=== PATIENT | female | born 1935 | race Caucasian/White ===

== ENCOUNTER 2019-04-12 20:16 | Emergency (ER) | payer MEDICARE, MEDICAID ==
[~2019-04-12] VITALS: Ht 152.4 cm; Wt 63.5 kg
[~2019-04-12 20:16] MED LIST: AMLO2.5T2 PO; ASPI-1152 PO; CLOP75TA15 PO; ESOM20CA PO; FERR1TAB44 PO; ISOS30TA PO; METO50TA7 PO; VENL25TA4 PO
[2019-04-12 20:57] VITALS: BP 130/68
--- NOTE | 2019-04-12 21:29 | NUR ---
RADIOLOGY AT BEDSIDE FOR XRAY
[2019-04-12] MEDS ORDERED: KETOROLAC TROMETHAMINE 15 MG/ML VIAL ONE (21:46)
[2019-04-12] MEDS ORDERED: ACETAMINOPHEN 325 MG TABLET ONE (21:46)
[2019-04-12] MEDS: ACETAMINOPHEN 325 MG TABLET PO ONE (21:52)
[2019-04-12] MEDS: KETOROLAC TROMETHAMINE INJ 30 MG/ML VIAL IM ONE (21:52)
== END 2019-04-12 23:03 | disposition home or self-care (01) ==
LOC: ER 20:20
DX: L03.115 Cellulitis of right lower limb (principal); R60.0 Localized edema; M79.671 Pain in right foot; I10 Essential (primary) hypertension; E78.5 Hyperlipidemia, unspecified; I25.2 Old myocardial infarction; G30.9 Alzheimer's disease, unspecified; F32.9 Major depressive disorder, single episode, unspecified; Z95.5 Presence of coronary angioplasty implant and graft; Z90.710 Acquired absence of both cervix and uterus; Z79.82 Long term (current) use of aspirin
CPT/HCPCS: 73630; 93971; 96372; 99284; J1885

== ENCOUNTER 2019-05-23 19:22 | Emergency (ER) | payer MEDICARE, MEDICAID ==
[~2019-05-23] VITALS: Ht 154.9 cm; Wt 61.2 kg
[2019-05-23 19:34] VITALS: BP 133/68
--- NOTE | 2019-05-23 19:34 | NUR ---
PT BIBFAMILT C/O "EARLIER TODAY, SWEATING. HAND ON CHEST" -SOB. -DIZZY. -N/V. PT BASELINE AOX1-2. VERBALLY RESPONSIVE. PT DENIES PAIN AT THE MOMENT. PT ON MONITOR IN BED 3 WITH FAMILY AT BEDSIDE. WILL CONTINUE TO MONITOR.
--- NOTE | 2019-05-23 19:35 | NUR ---
TECH AT BEDSIDE FOR EKG
--- NOTE | 2019-05-23 19:45 | NUR ---
BLOOD DRAWN AND GIVEN TO LAB
[2019-05-23 19:47] LABS: BASOPHILS # (AUTO) 0.1 /CMM (0.0-0.2); BASOPHILS % (AUTO) 1.1 % (0.0-2.0); EOSINOPHILS % (AUTO) 2.4 % (0.0-6.0); HEMATOCRIT 37 % (33-45); HEMOGLOBIN 12.3 g/dL (11.5-14.8); LYMPHOCYTES # (AUTO) 1.8 /CMM (0.8-4.8); LYMPHOCYTES % (AUTO) 20.2 % (20.0-44.0); MEAN CORPUSCULAR HGB CONC 33 g/dl (31.0-36.0); MEAN CORPUSCULAR VOLUME 85 fL (82-100); MONOCYTES # (AUTO) 0.7 /CMM (0.1-1.30); MONOCYTES % (AUTO) 8.5 % (2.0-12.0); NEUTROPHILS # (AUTO) 5.9 /CMM (1.8-8.9); NEUTROPHILS % (AUTO) 67.8 % (43.0-81.0); PLATELET COUNT (AUTO) 390 /CMM (150-450); RED BLOOD CELL COUNT(AUTO) 4.31 MIL/uL (4.0-5.2); WHITE BLOOD COUNT (AUTO) 8.8 K/uL (4.3-11.0)
[2019-05-23 20:02] LABS: CALCIUM, SERUM 7.9 mg/dL (8.5-10.1); CARBON DIOXIDE 27 mmol/L (21-32); CHLORIDE 106 mmol/L (98-107); CREATININE 0.8 mg/dL (0.6-1.3); GLUCOSE 119 mg/dL (74-106); POTASSIUM 3.9 mmol/L (3.5-5.1); SODIUM SERUM 142 mmol/L (136-145); UREA NITROGEN, BLOOD 19 mg/dL (7-18)
[2019-05-23 20:14] LABS: ALANINE AMINOTRANSFERASE 21 U/L (12-78); ALBUMIN 3.2 g/dL (3.4-5.0); ALKALINE PHOSPHATASE 58 U/L (46-116); ASPARTATE AMINOTRANSFERASE 14 U/L (15-37); B-TYPE NATRIURETIC PEPTIDE 335 PG/ML (0-125); BILIRUBIN,TOTAL 0.3 mg/dL (0.2-1.0); TOTAL PROTEIN, SERUM 6.7 g/dL (6.4-8.2)
--- NOTE | 2019-05-23 21:02 | NUR ---
Patient does not wish to proceed with medical care recommended by Dr. JASON. Patient given information related to possible complications, up to and including , which could occur as a result of leaving the hospital at this time. Patient verbalizes understanding of risks involved due to leaving against medical advice. Patient has signed AMA form.
== END 2019-05-23 21:12 | disposition left against medical advice (07) ==
LOC: ER 19:30
DX: R07.89 Other chest pain (principal); I10 Essential (primary) hypertension; E78.5 Hyperlipidemia, unspecified; I25.10 Atherosclerotic heart disease of native coronary artery without angina pectoris; I25.2 Old myocardial infarction; F32.9 Major depressive disorder, single episode, unspecified; G30.9 Alzheimer's disease, unspecified; Z95.818 Presence of other cardiac implants and grafts; Z90.710 Acquired absence of both cervix and uterus; Z79.899 Other long term (current) drug therapy; Z79.82 Long term (current) use of aspirin
CPT/HCPCS: 36415; 71045-TC; 80048-TC; 80076-TC; 83880; 84484-TC; 85025-TC

== ENCOUNTER 2019-08-01 15:02 | Inpatient (IN) | payer MEDICARE, MEDICAID ==
[~2019-08-01] VITALS: Ht 157.5 cm; Wt 65.3 kg
--- NOTE | 2019-08-01 15:17 | NUR ---
"BIBA [place] Professional from [place] "Mechanical fall- witnessed by staff/ Pain on left side/elbow was given tylenol and Kountze" PT AAOX1, PT ON MONITOR, -SOB, NAD NOTED, VSS ,PENDING MD SOTO
[2019-08-01] MEDS ORDERED: MAGN400O6 PO ×2 (15:58→16:00)
[2019-08-01] MEDS ORDERED: DULO60CA45 PO (15:58)
[2019-08-01] MEDS ORDERED: METO25TA20 PO (15:58)
[2019-08-01] MEDS ORDERED: ACET-868 PO (15:58)
[2019-08-01] MEDS ORDERED: RISP0.253 PO ×2 (15:58)
[2019-08-01] MEDS ORDERED: BISA10SU11 RC (15:58)
[2019-08-01] MEDS ORDERED: GABA-532 PO (15:58)
[2019-08-01] MEDS ORDERED: ATOR40TA PO (15:58)
--- NOTE | 2019-08-01 16:07 | NUR ---
PAGED ORTHO PHARMACEUTICAL SCIENTIST ARTHUR GO
[2019-08-01 16:15] LABS: BASOPHILS # (AUTO) 0.2 /CMM (0.0-0.2); BASOPHILS % (AUTO) 1.2 % (0.0-2.0); EOSINOPHILS % (AUTO) 0.8 % (0.0-6.0); HEMATOCRIT 32 % (33-45); HEMOGLOBIN 10.3 g/dL (11.5-14.8); LYMPHOCYTES # (AUTO) 1.1 /CMM (0.8-4.8); MEAN CORPUSCULAR HGB CONC 32 g/dl (31.0-36.0); MEAN CORPUSCULAR VOLUME 84 fL (82-100); MONOCYTES # (AUTO) 0.9 /CMM (0.1-1.30); MONOCYTES % (AUTO) 6.7 % (2.0-12.0); NEUTROPHILS # (AUTO) 11.6 /CMM (1.8-8.9); NEUTROPHILS % (AUTO) 83.3 % (43.0-81.0); PLATELET COUNT (AUTO) 514 /CMM (150-450); RED BLOOD CELL COUNT(AUTO) 3.79 MIL/uL (4.0-5.2)
--- NOTE | 2019-08-01 16:20 | NUR ---
Shawn Abreu called back for ortho consult, talking to Dr Long.
[2019-08-01 16:26] LABS: CALCIUM, SERUM 8.6 mg/dL (8.5-10.1); CREATININE 0.8 mg/dL (0.6-1.3)
--- NOTE | 2019-08-01 16:27 | NUR ---
Paged [facility] -- software applications developer is Dr Clayton.
[2019-08-01 16:56] LABS: APPEARANCE,URINE Slightly Cloudy (CLEAR); BILIRUBIN,URINE Negative (NEGATIVE); BLOOD, URINE Negative Ery/uL (NEGATIVE); COLOR,URINE Yellow (YELLOW); KETONES,URINE Negative (NEGATIVE); LEUKOCYTE ESTERASE ,URINE Small (NEGATIVE); NITRITE, URINE Negative (NEGATIVE); PROTEIN,URINE Negative (NEGATIVE); UGLUCOSE Negative (NEGATIVE); UROBILINOGEN,URINE 0.2 EU/dL (0.2)
[2019-08-01] MEDS ORDERED: MORPHINE SULFATE INJ 2 MG/ML DISP.SYRIN IV ONE (17:00)
[2019-08-01] MEDS ORDERED: ONDANSETRON HCL/PF - ER 4 MG/2 ML VIAL IV ONE (17:00)
[2019-08-01 17:07] LABS: BACTERIA,URINE 3+ /HPF (None Seen); RBC,URINE NONE SEEN /HPF (0-2); SQUAMOUS EPITHELIAL CELL,UR Rare /HPF (None Seen)
[2019-08-01] MEDS ORDERED: ONDANSETRON HCL/PF 4 MG/2 ML VIAL ONE (17:08)
[2019-08-01] MEDS ORDERED: MORPHINE SULFATE INJ 2 MG/ML DISP.SYRIN ONE (17:09)
--- NOTE | 2019-08-01 17:46 | NUR ---
[id number] [facility]
--- NOTE | 2019-08-01 18:22 | NUR ---
REPORT GIVEN TO NATHANIEL FLYNN FOR YARA PT WILL BE TRANSPORTED TO 3RD FLOOR VIA ACLS PROTOCOL
[2019-08-01 18:30] VITALS: BP 131/76
[2019-08-01 18:31] VITALS: BP 131/76
--- NOTE | 2019-08-01 18:35 | NUR ---
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 NO SIGNS OF ACUTE DISTRESS. NO COMPLAIN OF PAIN OR DISCOMFORT. A/O X 1, KHMER SPEAKING ONLY. ADMITTING DX S/P FALL LEF HIP FX AND LEFT SHOULDER FX. MORPHINE 2MG IVP/ ZOFRAN 4MG IVP GIVEN IN ER AT 1721. TOLERATING WELL. ON OXYGEN 2LPM VIA NC. INCONTINENT OF BOWEL AND BLADDER. F/C INSERTED IN ER, DRAINING CLEAR, YELLOW URINE. FAMILY AT BEDSIDE, DAUGHTER HAM , , IN CASE OF ANY TRANSLATION AND CONSENTS NEEDED TO CONTACT HER. ALL NEEDS ATTENDED TO AT THIS TIME. CALL LIGHT WITHIN REACH. WILL ENDORSE TO NEXT SHIFT FOR CONTINUITY OF CARE.
[2019-08-01] MEDS ORDERED: BISACODYL SUPP (10 MG) 10 MG/SUPP.RECT SUPP.RECT RC PRN (19:00)
--- NOTE | 2019-08-01 19:01 | NUR ---
MS/RN RECEIVED CALL FROM RADIOLOGY IN [place] TO ORDER PUT IN BY SANTHOSH GUZMAN FOR X RAY PELVIS, PER CHRISSY FROM RADIOLOGY THE PELVIS XRAY IS ALREADY SHOT UNDER HIP EXAM. PER SANTHOSH GUZMAN ORDERS TO CANCEL X RAY PELVIS.
[2019-08-01 20:00] VITALS: BP 136/55
--- NOTE | 2019-08-01 20:00 | NUR ---
MS RN NOTES RECEIVED PTS IN BED AWAKE ALERT X1 , NO SOB NO DISTRESS NOTED ON O2 AT 2 LITERS VIA NC SATING 98%, V/S STABLE AFEBRILE , FAMILY AT BEDSIDE UPDATED WITH PTS CURRENT CONDITION . PTS ON MECHANICAL SOFT DIET , DUE MEDS GIVEN ORDERED , ALL NEEDS ATTENDED TOO CALL LIGHT WITHIN REACH .PTS ON RIGHT WRIST G#18 SALINE LOCK INTACT AND PATENT , PTS ON F/C DRAINING WITH YELLOWISH URINE OUTPUT .LEFT SHOULDER AND LEFT HIP IMMOBILIZED D/T FRACTURE , PTS IS NPO POST MN ON SATURDAY /DR GIBSON (ORTHO) ,KEPT PTS CLEAN DRY AND COMFORTABLE.WILL CONTINUE TO MONITOR PTS.
[2019-08-01] MEDS: ATORVASTATIN 40 MG TABLET PO SCH (22:10)
[2019-08-01] MEDS: risperiDONE 0.25 MG TABLET PO SCH (22:10)
[2019-08-01] MEDS: ACETAMINOPHEN 325 MG TABLET PO PRN (23:28)
--- NOTE | 2019-08-02 04:40 | NUR ---
ms rn notes spoke to dr stafford with order with ibuprofen 600 mg via po q 6hrs prn for pain .
--- NOTE | 2019-08-02 07:27 | NUR ---
MS RN NOTES PTS IN BED AWAKE AND RESPONSIVE , V/S STABLE AFEBRILE ,REMAINS ON SLING ON THE RIGHT ARM , NO SOB NO DISTRESS NOTED , REMAINS ON NC AT 2LITRS OF O2 SATING 97%, ALL NEEDS ATTENDED TOO , ENDORSE TO RN DAY SHIFT FOR CONTINUITY OF CARE.
--- NOTE | 2019-08-02 07:32 | NUR ---
MS RN OPENING NOTES RECEIVED PATIENT IN BED ASLEEP IN MODERATE HIGH BACK REST. EASILY AROUSABLE. ON OXYGEN 2LPM VIA NC. NO SOB NOTED AT THIS TIME. IV ACCESS ON RIGHT WRIST #18. PATENT AND INTACT. NOTED WITH FC, DRAINING WELL. SAFETY MEASURES IN PLACE, BED IN LOW LOCKED POSITION WITH SIDE RAILS UP X2. CALL LIGHT WITHIN EASY REACH. WILL CONTINUE TO MONITOR.
[2019-08-02] MEDS: LEVOFLOXACIN 750 MG /D5W 150ML 750 MG in PREMIX 1 EA IV SCH (07:48)
[2019-08-02 08:00] VITALS: BP 147/73
[2019-08-02] MEDS: GABAPENTIN 100 MG CAPSULE PO SCH ×3 (08:09→16:26)
[2019-08-02] MEDS: AMLODIPINE BESYLATE 2.5 MG TABLET PO SCH (08:10)
[2019-08-02] MEDS: DULOXETINE HCL 30 MG CAPSULE.DR PO SCH (08:10)
[2019-08-02] MEDS: METOPROLOL TARTRATE 25 MG TABLET PO SCH ×2 (08:10→16:26)
[2019-08-02] MEDS: risperiDONE 0.25 MG TABLET PO SCH ×3 (08:11→22:07)
[2019-08-02 12:43] LABS: CALCIUM, SERUM 8.9 mg/dL (8.5-10.1); CARBON DIOXIDE 25 mmol/L (21-32); CHLORIDE 102 mmol/L (98-107); GLUCOSE 169 mg/dL (74-106); PHOSPHORUS 3.4 mg/dL (2.5-4.9); POTASSIUM 4.3 mmol/L (3.5-5.1); SODIUM SERUM 138 mmol/L (136-145); UREA NITROGEN, BLOOD 17 mg/dL (7-18)
[2019-08-02 12:44] LABS: BASOPHILS % (AUTO) 0.3 % (0.0-2.0); EOSINOPHILS % (AUTO) 0.1 % (0.0-6.0); HEMATOCRIT 30 % (33-45); HEMOGLOBIN 9.7 g/dL (11.5-14.8); LYMPHOCYTES # (AUTO) 0.7 /CMM (0.8-4.8); LYMPHOCYTES % (AUTO) 4.7 % (20.0-44.0); MEAN CORPUSCULAR HGB CONC 33 g/dl (31.0-36.0); MEAN CORPUSCULAR VOLUME 83 fL (82-100); MONOCYTES # (AUTO) 0.9 /CMM (0.1-1.30); MONOCYTES % (AUTO) 6.5 % (2.0-12.0); NEUTROPHILS # (AUTO) 12.8 /CMM (1.8-8.9); NEUTROPHILS % (AUTO) 88.4 % (43.0-81.0); PLATELET COUNT (AUTO) 494 /CMM (150-450); RED BLOOD CELL COUNT(AUTO) 3.56 MIL/uL (4.0-5.2); WHITE BLOOD COUNT (AUTO) 14.4 K/uL (4.3-11.0)
[2019-08-02] MEDS: IBUPROFEN 600 MG TABLET PO PRN (14:24)
[2019-08-02 16:00] VITALS: BP 104/53
--- NOTE | 2019-08-02 18:44 | NUR ---
MS RN CLOSING NOTES PATIENT IN BED ASLEEP IN MODERATE HIGH BACK REST. A/O X 1. FAMILY AT BEDSIDE. ON OXYGEN 2LPM VIA NC. NO SOB NOTED THROUGHOUT THE SHIFT. IV ACCESS ON RIGHT WRIST #18, SL. PATENT AND INTACT. NOTED WITH FC, DRAINING WELL. ALL NURSING NEEDS PROVIDED. SAFETY MEASURES IN PLACE, BED IN LOW LOCKED POSITION WITH SIDE RAILS UP X2. CALL LIGHT WITHIN EASY REACH. WILL ENDORSED TO ENGINEERING ASSOCIATE NURSE FOR YARA.
--- NOTE | 2019-08-02 19:40 | NUR ---
MS RN OPENING NOTES RECEIVED PATIENT IN BED ASLEEP IN MODERATE HIGH BACK REST. ALERT /ORIENTED X 1. FAMILY AT BEDSIDE. ON OXYGEN 2LPM VIA NC. NO SOB NOTED AT THIS TIME, IV ACCESS ON RIGHT WRIST #18, SL. PATENT AND INTACT. NOTED WITH FC, DRAINING WELL. ALL NURSING NEEDS PROVIDED. SAFETY MEASURES IN PLACE, BED IN LOW LOCKED POSITION WITH SIDE RAILS UP X2. CALL LIGHT WITHIN EASY REACH. ASPIRATION PRECAUTION EMPHASIZED, CONSENT FOR SURGERY LEFT INTERMEDULLARY RODDING SIGNED BY DAUGHTER HAM AT 19:27PM WITH AM NURSE ANA LOPEZ. ALL NEEDS ATTENDED, REPOSITIONED FOR COMFORT, WILL MONITOR ACCORDINGLY.
[2019-08-02 20:00] VITALS: BP 113/55
[2019-08-02 20:16] VITALS: BP 113/55
[2019-08-02 20:50] VITALS: BP 113/55
[2019-08-02] MEDS: ATORVASTATIN 40 MG TABLET PO SCH (22:08)
[2019-08-03 06:24] LABS: BASOPHILS # (AUTO) 0.1 /CMM (0.0-0.2); BASOPHILS % (AUTO) 0.5 % (0.0-2.0); EOSINOPHILS % (AUTO) 1.4 % (0.0-6.0); HEMATOCRIT 29 % (33-45); HEMOGLOBIN 9.5 g/dL (11.5-14.8); LYMPHOCYTES # (AUTO) 1.1 /CMM (0.8-4.8); LYMPHOCYTES % (AUTO) 8.4 % (20.0-44.0); MEAN CORPUSCULAR HGB CONC 33 g/dl (31.0-36.0); MEAN CORPUSCULAR VOLUME 82 fL (82-100); MONOCYTES % (AUTO) 7.5 % (2.0-12.0); NEUTROPHILS # (AUTO) 10.6 /CMM (1.8-8.9); NEUTROPHILS % (AUTO) 82.2 % (43.0-81.0); PLATELET COUNT (AUTO) 428 /CMM (150-450); WHITE BLOOD COUNT (AUTO) 12.9 K/uL (4.3-11.0)
[2019-08-03 07:02] LABS: CALCIUM, SERUM 8.8 mg/dL (8.5-10.1); CARBON DIOXIDE 25 mmol/L (21-32); CHLORIDE 105 mmol/L (98-107); GLUCOSE 153 mg/dL (74-106); MAGNESIUM 2.2 mg/dL (1.8-2.4); PHOSPHORUS 3.9 mg/dL (2.5-4.9); SODIUM SERUM 140 mmol/L (136-145); UREA NITROGEN, BLOOD 19 mg/dL (7-18)
--- NOTE | 2019-08-03 07:17 | NUR ---
RN NOTES ALL NEEDS ATTENDED AND MET, NPO SINCE MIDNIGHT, ABLE TO REST AND SLEEP AT INTERVALS, SAFETY MEASURES IN PLACE, ASPIRATION PRECAUTION EMPHASIZE, CALL LIGHT WITHIN EASY REACH, CONSENT FOR SURGERY AND CHECKLIST ENDORSED TO AM NURSE, FOR CONTINUITY OF CARE AND MANAGEMENT.
--- NOTE | 2019-08-03 07:28 | NUR ---
MS RN OPENING NOTE PATIENT IN BED RESTING COMFORTABLY, BREATHING ON OXYGEN NC AT 2L. PATIENT BREATHING IS EVEN AND UNLABORED. PATIENT IN NO ACUTE DISTRESS. NO SOB NOTED. NO FACIAL GRIMACING NOTED. AVALOS CATHETER DRAINING TO GRAVITY. SAFETY PRECAUTIONS IN PLACE. HEAD OF BED IS ELEVATED. PATIENT BED IS LOCKED AND IN LOWEST POSITION. CALL LIGHT WITHIN REACH. WILL CONTINUE TO MONITOR.
[2019-08-03 08:00] VITALS: BP 140/70
[2019-08-03] MEDS: GABAPENTIN 100 MG CAPSULE PO SCH ×3 (09:00→17:15)
[2019-08-03] MEDS: risperiDONE 0.25 MG TABLET PO SCH ×3 (09:00→21:24)
[2019-08-03] MEDS: METOPROLOL TARTRATE 25 MG TABLET PO SCH ×2 (09:00→17:16)
[2019-08-03] MEDS: AMLODIPINE BESYLATE 2.5 MG TABLET PO SCH (09:00)
[2019-08-03] MEDS: DULOXETINE HCL 30 MG CAPSULE.DR PO SCH (09:00)
[2019-08-03] MEDS ORDERED: BUPIVACAINE 0.5 % PF 150 MG/30 ML VIAL ONE (10:51)
[2019-08-03] MEDS ORDERED: ANESTHESIA TRAY IN PYXIS 1 EA TRAY MC ONE (10:51)
[2019-08-03] MEDS ORDERED: BACITRACIN 50000 UNITS/VIAL ONE (10:51)
[2019-08-03] MEDS ORDERED: MORPHINE SULFATE INJ 4 MG/ML DISP.SYRIN IV ONE (11:30)
--- NOTE | 2019-08-03 12:00 | NUR ---
MS RN NOTE PATIENT SURGERY WAS HELD DUE TO PATIENTS HR BEING IN THE 140'S. SURGERY IS RESCHEDULED FOR TOMORROW MORNING. DR. RODRIGUEZ AND THE PULLING UNIT OPERATOR CAME TO EVALUATE PATIENT AND STATED IT WAS BEST TO DO SURGERY TOMORROW MORNING. NICHOLAS JEFFERY MADE AWARE. ORDERS TO GIVE MEDS THAT WERE NON ADMIN IN THE AM DUE TO NPO SURGERY STATUS. PATIENT IN NO ACUTE DISTRESS. WILL CONTINUE TO MONITOR.
[2019-08-03] MEDS ORDERED: GABAPENTIN 100 MG CAPSULE PO ONE (12:30)
[2019-08-03] MEDS ORDERED: risperiDONE 1 MG TABLET PO ONE (12:30)
[2019-08-03] MEDS ORDERED: METOPROLOL TARTRATE 50 MG TABLET PO ONE (12:30)
[2019-08-03] MEDS ORDERED: DULOXETINE HCL 30 MG CAPSULE.DR PO ONE (12:30)
[2019-08-03] MEDS ORDERED: AMLODIPINE BESYLATE 5 MG TABLET PO ONE (12:30)
[2019-08-03] MEDS: HEPARIN SODIUM, PORCINE 5000 UNITS/1 ML VIAL SQ SCH ×2 (12:58→21:00)
[2019-08-03 16:09] VITALS: BP 122/60
--- NOTE | 2019-08-03 19:04 | NUR ---
MS RN NOTE PATIENT RESTING IN BED COMFORTABLY. PATIENT IN NO ACUTE DISTRESS. NO SOB NOTED. PATIENT BREATHING IS EVEN AND UNLABORED. PATIENT BREATHING ON OXYGEN NC 2L. PATIENT MAINTAINED TO BE NPO AFTER MIDNIGHT. PATIENT HR 107. NO FACIAL GRIMACING NOTED. PATIENT KEPT CLEAN, DRY, AND REPOSITIONED. EXTREMITIES OFFLOADED ON PILLOWS. SAFETY PRECAUTIONS IN PLACE. PATIENT BED IS LOCKED AND IN LOWEST POSITION. CALL LIGHT WITHIN REACH. ALL NURSING NEEDS MET. WILL ENDORSE CARE TO PM SHIFT FOR YARA. Addendum: 08/03/19 at 1925 by SOM HUMMEL RN MS RN CLOSING NOTE PATIENT RESTING IN BED COMFORTABLY. PATIENT IN NO ACUTE DISTRESS. NO SOB NOTED. PATIENT BREATHING IS EVEN AND UNLABORED. PATIENT BREATHING ON OXYGEN NC 2L. PATIENT MAINTAINED TO BE NPO AFTER MIDNIGHT. PATIENT HR 107. NO FACIAL GRIMACING NOTED. PATIENT KEPT CLEAN, DRY, AND REPOSITIONED. EXTREMITIES OFFLOADED ON PILLOWS. SAFETY PRECAUTIONS IN PLACE. PATIENT BED IS LOCKED AND IN LOWEST POSITION. CALL LIGHT WITHIN REACH. ALL NURSING NEEDS MET. WILL ENDORSE CARE TO PM SHIFT FOR YARA.
--- NOTE | 2019-08-03 19:07 | NUR ---
RN MS OPENING NOTES RECEIVED PATIENT IN BED SLEEPING BUT EASILY AROUSABLE, ON 2 L VIA NC ,RESPIRATIONS EVEN AND UNLABORED WITH EQUAL RISE AND FALL OF CHEST, APPEARS TO BE COMFORTABLE, NO FACIAL GRIMACING PRESENT, AVALOS CATHETER INTACT AND DRAINING URINE YELLOW,IV SITE TO RIGHT WRIST #18G INTACT AND PATENT, NO REDNESS, NO INFILTRATION PRESENT, SLING INTACT TO LEFT ARM.SHOULDER, ON CARDIAC MONITORING ST AT 107, NO DISTRESS PRESENT, HEELS OFFLOADED, FLUIDS OFFERED, ALL NEEDS ATTENDED WILL CONTINUE TO MONITOR AND ATTEND TO NEEDS.
[2019-08-03] MEDS: ACETAMINOPHEN 325 MG TABLET PO PRN (19:57)
--- NOTE | 2019-08-03 19:57 | NUR ---
RN MS NOTES NOTED WITH TEMPERATURE OF 100.2, TYLENOL PRN GIVEN AND COOLING MEASURES PROVIDED WILL CONTINUE TO MONITOR FOR EFFECTIVENESS.
[2019-08-03 20:00] VITALS: BP 112/61
--- NOTE | 2019-08-03 20:30 | NUR ---
RN MS NOTES UPON ASSESSMENT NOTED LEFT HEEL WITH REDNESS, HEELS WERE OFFLOADED, PICTURE TAKEN MEPILEX PLACED FOR SKIN MANAGEMENT, HOSPITALIST AWARE, WILL PLACE WOUND CARE CONSULT. WILL CONTINUE TO MONITOR AND OFFLOAD.
--- NOTE | 2019-08-03 21:00 | NUR ---
RN MS NOTES CALLED AND SPOKE TO REGARDING TEMPERATURE AT 100.2 TYLENOL WAS GIVEN AND COOLING MEASURES WERE PROVIDED TEMPERATURE DECREASED TO 98.2. MADE AWARE ASK FOR ANY FURTHER RECOMMENDATIONS, AT THIS TIME NO NEW ORDERS CONTINUE TO MONITOR FOR FEVER.
--- NOTE | 2019-08-03 21:17 | NUR ---
RN MS NOTES HEPARIN HELD PATIENT IS SCHEDULED TO HAVE SURGERY IN AM AT 7AM.
--- NOTE | 2019-08-03 21:45 | NUR ---
RN MS NOTES SPOKE TO DAUGHTER REGARDING PATIENT CONDITION, LEFT HEEL NOTED WITH REDNESS AND FEVER NOTED WITH INTERVENTIONS PROVIDED, VERBALIZES SHE UNDERSTANDS. WILL CONTINUE TO MONITOR.
[2019-08-04 06:00] VITALS: BP 126/64
--- NOTE | 2019-08-04 06:40 | NUR ---
RN MS CLOSING NOTES PATIENT IN BED AWAKE ALERT AND ORIENTED X1, ON 2 L VIA NC ,RESPIRATIONS EVEN AND UNLABORED WITH EQUAL RISE AND FALL OF CHEST, APPEARS TO BE COMFORTABLE, NO FACIAL GRIMACING PRESENT, AVALOS CATHETER INTACT AND DRAINING URINE YELLOW 800 CC OUTPUT ,IV SITE TO RIGHT WRIST #18G INTACT AND PATENT, NO REDNESS, NO INFILTRATION PRESENT, SLING INTACT TO LEFT ARM.SHOULDER, ON CARDIAC MONITORING SR AND ST THROUGHOUT SHIFT 98 TO 118, NO DISTRESS PRESENT, HEELS OFFLOADED, FLUIDS OFFERED, REMAINED AFEBRILE THROUGHOUT SHIFT, ALL NEEDS ATTENDED WILL CONTINUE TO MONITOR AND ATTEND TO NEEDS AND ENDORSE TO NEXT SHIFT FOR CONTINUITY OF CARE.
[2019-08-04] MEDS ORDERED: HYDROMORPHONE INJ 2 MG/ML DISP.SYRIN ONE (06:41)
--- NOTE | 2019-08-04 06:42 | NUR ---
RN MS NOTES PATIENT WAS PICKED UP BY SURGERY STAFF, FAMILY AT BEDSIDE, OUT OF UNIT, LEFT IN STABLE CONDITION FOR SCHEDULED PROCEDURE.
[2019-08-04] MEDS ORDERED: BACITRACIN 50000 UNITS/VIAL ONE (07:28)
[2019-08-04] MEDS ORDERED: BUPIVACAINE 0.5 % PF 150 MG/30 ML VIAL ONE (07:28)
--- NOTE | 2019-08-04 07:34 | NUR ---
MS RN OPENING NOTES RECEIVED REPORT FROM BUSINESS DEVELOPMENT ANALYST. PT CURRENTLY IN OR FOR LEFT HIP PROCEDURE.
[2019-08-04] MEDS: LEVOFLOXACIN 750 MG /D5W 150ML 750 MG in PREMIX 1 EA IV SCH ×2 (08:00→10:00)
[2019-08-04] MEDS: risperiDONE 0.25 MG TABLET PO SCH ×3 (09:00→21:25)
[2019-08-04 09:02] LABS: BASOPHILS % (AUTO) 0.4 % (0.0-2.0); EOSINOPHILS % (AUTO) 0.6 % (0.0-6.0); HEMATOCRIT 28 % (33-45); HEMOGLOBIN 9.2 g/dL (11.5-14.8); LYMPHOCYTES # (AUTO) 0.8 /CMM (0.8-4.8); LYMPHOCYTES % (AUTO) 7.4 % (20.0-44.0); MEAN CORPUSCULAR HGB CONC 33 g/dl (31.0-36.0); MEAN CORPUSCULAR VOLUME 83 fL (82-100); MONOCYTES # (AUTO) 0.6 /CMM (0.1-1.30); MONOCYTES % (AUTO) 5.3 % (2.0-12.0); NEUTROPHILS % (AUTO) 86.3 % (43.0-81.0); PLATELET COUNT (AUTO) 439 /CMM (150-450); RED BLOOD CELL COUNT(AUTO) 3.32 MIL/uL (4.0-5.2); WHITE BLOOD COUNT (AUTO) 10.4 K/uL (4.3-11.0)
[2019-08-04 09:09] LABS: CALCIUM, SERUM 8.7 mg/dL (8.5-10.1); CREATININE 0.8 mg/dL (0.6-1.3); POTASSIUM 4.4 mmol/L (3.5-5.1)
[2019-08-04 09:35] VITALS: BP 136/71
--- NOTE | 2019-08-04 09:35 | NUR ---
MS RN NOTES-- PT CAME BACK FROM OR VIA [facility] IN STABLE CONDITION. S/P LEFT HIP IM RODDING. DRESSING TO LEFT HIP IN PLACE, INTACT, KEPT CLEAN AND DRY. ON OXYGEN 2L/MIN VIA NX, SATURATING 98%. VITAL SIGNS WNL. DVT PUMPS PLACED. WILL CONTINUE TO MONITOR.
[2019-08-04] MEDS: IV LR 1000 ML 1,000 ML IV PRN (10:00)
--- NOTE | 2019-08-04 10:20 | NUR ---
MS RN NOTES-- CLARIFIED HEPARIN ORDER W/ DR. MIX. PER DR MIX TO D/C HEPARIN AND KEEP LOVENOX ORDER. READ BACK AND VERIFIED. NOTED AND CARRIED OUT.
[2019-08-04] MEDS: GABAPENTIN 100 MG CAPSULE PO SCH ×3 (10:38→16:17)
[2019-08-04] MEDS: DULOXETINE HCL 30 MG CAPSULE.DR PO SCH (10:38)
[2019-08-04] MEDS: METOPROLOL TARTRATE 50 MG TABLET PO SCH ×2 (10:39→21:25)
--- NOTE | 2019-08-04 10:46 | NUR ---
MS RN NOTES-- PER DR. RODRIGUEZ, DNI REVERSE X24 HOURS PERIOPERATIVELY WITH DTR CONSENT, FULL CODE 08/04/19 71- 08/05/19 [id number], BACK TO DNI ON 08/05/19. NOTED AND CARRIED OUT.
--- NOTE | 2019-08-04 10:58 | NUR ---
WOUND CARE CONSULT: PT PRESENTS WITH LEFT HIP AND THIGH SURGICAL DRESSINGS, DRY AND INTACT, LEFT ARM SLING IN PLACE AND LEFT HEEL INTACT DEEP TISSUE INJURY. RECOMMENDATIONS MADE FOR SKIN PROTECTION AND WOUND CARE. DISCUSSED WITH NURSING STAFF. DEFER TO ORTHO FOR LEFT HIP/THIGH AND LEFT ARM. FIRST STEP LOW AIRLOSS MATTRESS ORDERED. CURRENT CELIO SCORE IS 12. WILL SEE PRN. AGUIAR IN AGREEMENT WITH PLAN OF CARE. Addendum: 08/04/19 at 1100 by SINDI ROTH WNDNU Amended: Links added.
[2019-08-04] MEDS: CEFAZOLIN 2 GM in IV D5W 50 ML IV SCH ×2 (14:22→22:26)
[2019-08-04 16:00] VITALS: BP 104/50
--- NOTE | 2019-08-04 16:17 | NUR ---
MS RN NOTES-- DID NOT ADMINISTER RISPERDAL PT IS DROWSY. PT IS S/P LEFT IM RODDING THIS AM. WILL CONTINUE TO MONITOR.
[2019-08-04] MEDS: ACETAMINOPHEN 325 MG TABLET PO PRN (18:21)
--- NOTE | 2019-08-04 18:33 | NUR ---
MS RN CLOSING NOTES ALL DUE MEDS GIVEN. NEEDS MET AND RENDERED. PT IS A/O X1, APPEARS TO BE DROWSY. RESPIRATIONS ARE EVEN AND UNLABORED, NOT IN ANY ACUTE DISTRESS NOTED. NO FACIAL GRIMACING OR MOANING NOTED AT THIS TIME. IV SITE TO RFA INTACT, NO INFILTRATION NOTED. DRESSING KEPT CLEAN AND DRY. SAFETY MEASURES ARE IN PLACE. FAMILY AT BEDSIDE. WILL ENDORSE TO NEXT SHIFT FOR CONTINUITY OF CARE.
[2019-08-04 20:00] VITALS: BP 107/58
--- NOTE | 2019-08-04 20:04 | NUR ---
RN NOTES RECEIVED PATIENT IN BED, CALM, NON-VERBAL, URDU SPEAKING ONLY, 2LPM VIA NC, NO DISTRESS, S/P LEFT HIP INTERMEDULLARY NAIL, LEFT SHOULDER FRACTURE SECURED WITH SLING, ABLE TO MOVE FINGERS, WARM TO TOUCH, SCD, LOVENOX FOR VTE, AVALOS CATHETER DRAINING WELL, PER ENDORSEMENT, TEMPERATURE ELEVATED, RECEIVED TYLENOL FROM PREVIOUS SHIFT, KEPT SAFE, WILL CONTINUE TO MONITOR.
[2019-08-04 20:11] VITALS: BP 107/58
[2019-08-04] MEDS ORDERED: METOPROLOL TARTRATE 50 MG TABLET PO SCH (21:00)
[2019-08-05] VITALS (8 sets, daily range): BP systolic 97–128; BP diastolic 52–65
[2019-08-05] MEDS: IV LR 1000 ML 1,000 ML IV PRN (04:04)
[2019-08-05] MEDS: ACETAMINOPHEN 325 MG TABLET PO PRN (06:00)
--- NOTE | 2019-08-05 06:43 | NUR ---
RN NOTES PM SHIFT PATIENT IS LETHARGIC, S/P LEFT HIP INTERMEDULLARY NAIL 08/04/19 UNDER GENERAL ANESTHESIA, AROUSEABLE WITH VERBAL AND TACTILE STIMULATION, 2LPM VIA NC, SP02 96%, NOT IN APPARENT DISTRESS, LEFT HIP SX SITE DRESSING IS CLEAN, DRY AND INTACT, ICE APPLIED, LEFT SHOULDER FRACTURE SECURED WITH SLING, FINGERS WARM TO TOUCH, ABLE TO WIGGLE FINGERS, AVALOS CATHETER DRAINING WELL, MUST BE REMOVED AT 0900, POD 1, SCD AND LOVENOX FOR VTE, HEELS OFFLOADED
--- NOTE | 2019-08-05 07:25 | NUR ---
M/S RN NOTES PATIENT AWAKE, LYING IN BED. ALERT AND ORIENTED X1, IN NO RESPIRATORY DISTRESS. LEFT HIP SX DRESSING CLEAN, DRY AND INTACT, ICE APPLIED ON THE SIDE. PATIENT'S LEFT SHOULDER WITH A SLING IN PLACE, NO NUMBNESS. SKIN WARM TO TOUCH. IV LR INFUSING AT 75ML/HR ON THE RT WRIST, INTACT AND PATENT. PATIENT'S NEEDS ATTENDED. BED ON LOWEST LOCKED POSITION, CALL LIGHT WITHIN REACH. WILL CONTINUE TO MONITOR.
[2019-08-05 07:29] LABS: BASOPHILS % (AUTO) 0.1 % (0.0-2.0); EOSINOPHILS % (AUTO) 0.9 % (0.0-6.0); HEMATOCRIT 24 % (33-45); LYMPHOCYTES # (AUTO) 1.5 /CMM (0.8-4.8); LYMPHOCYTES % (AUTO) 14.5 % (20.0-44.0); MEAN CORPUSCULAR HGB CONC 33 g/dl (31.0-36.0); MEAN CORPUSCULAR VOLUME 84 fL (82-100); MONOCYTES # (AUTO) 0.9 /CMM (0.1-1.30); MONOCYTES % (AUTO) 8.1 % (2.0-12.0); NEUTROPHILS # (AUTO) 8.1 /CMM (1.8-8.9); NEUTROPHILS % (AUTO) 76.4 % (43.0-81.0); PLATELET COUNT (AUTO) 438 /CMM (150-450); WHITE BLOOD COUNT (AUTO) 10.6 K/uL (4.3-11.0)
[2019-08-05 07:42] LABS: ALBUMIN 1.9 g/dL (3.4-5.0); BILIRUBIN,TOTAL 0.4 mg/dL (0.2-1.0); CALCIUM, SERUM 8.8 mg/dL (8.5-10.1); CREATININE 0.9 mg/dL (0.6-1.3); MAGNESIUM 2.1 mg/dL (1.8-2.4); PHOSPHORUS 2.9 mg/dL (2.5-4.9); POTASSIUM 3.9 mmol/L (3.5-5.1); TOTAL PROTEIN, SERUM 6.1 g/dL (6.4-8.2)
[2019-08-05 07:57] LABS: THYROID STIMULATING HORMONE 0.548 uIU/mL (0.358-3.74)
[2019-08-05] MEDS: DULOXETINE HCL 30 MG CAPSULE.DR PO SCH (08:42)
[2019-08-05] MEDS: risperiDONE 0.25 MG TABLET PO SCH ×3 (08:43→21:33)
[2019-08-05] MEDS: GABAPENTIN 100 MG CAPSULE PO SCH ×3 (08:43→17:44)
[2019-08-05] MEDS: METOPROLOL TARTRATE 50 MG TABLET PO SCH ×2 (08:43→21:00)
[2019-08-05] MEDS: ENOXAPARIN SODIUM 40 MG/0.4 ML DISP.SYRIN SQ SCH (08:44)
[2019-08-05] MEDS: IBUPROFEN 600 MG TABLET PO PRN ×2 (09:40→17:59)
[2019-08-05] MEDS ORDERED: MORPHINE SULFATE INJ 2 MG/ML DISP.SYRIN IV PRN (13:00)
[2019-08-05 16:19] LABS: HEMOGLOBIN 7.2 g/dL (11.5-14.8)
--- NOTE | 2019-08-05 18:20 | NUR ---
M/S RN NOTES PATIENT IN NO RESPIRATORY DISTRESS, PATIENT COMPLAINING OF 5/10 PAIN ON THE LEFT HIP, GIVEN MOTRIN ORDERED. PATIENT'S NEEDS ATTENDED. BED ON LOWEST LOCKED POSITION, CALL LIGHT WITHIN REACH. WILL ENDORSE TO ONCOMING NURSE.
--- NOTE | 2019-08-05 19:00 | NUR ---
RN babitasuryuli opening notes Pt is resting in bed comfortably. Pt is alert and oriented X1. Pt's daughter Bethany at the bedside. Respiration is normal in 2 L NC. No SOB. No nausea or vomiting. No S/S of distress noted. IV sites at Right wrist # 22 is clean, intact, patent and SL. Left hip SX dressing is clean, intact and dry. Pt's left shoulder sling is in placed. Skin warm to touch, no numbness. Instructed daughter and Pt's daughter to call for assistance. Informed Pt's daughter about POC and need to transfuse blood per MD order. Pt's daughter verbalized understanding. Informed consent for blood transfusion is signed by Pt's daughter. Safety precautions is maintained. Will continue to monitor and assist all needs.
--- NOTE | 2019-08-05 19:30 | NUR ---
RN medsur notes Informed and verify with Dr. Montenegro for 1 Unit PRBC for Pt. MD ordered 1 unit PRBC transfusion for Pt. Ordered carried out.
--- NOTE | 2019-08-05 21:15 | NUR ---
RN medsurg notes Hold Lopressor 50 mg/2 tabs/PO as ordered for BP. Pt's BP 97/57, Pulse 105. Will continue to monitor.
--- NOTE | 2019-08-05 22:43 | NUR ---
RN jenniffer notes Blood consent signed by Pt's daughter. Blood transfusion checked with ANDRESSA Light. Blood transfusion starts at 2243. BP 106/52, PULSE 99, RESP 18, TEMP 99.1 Axillary, O2 sat is 100 2 L NC. Will check VS in 15 min. Will Continue to monitor.
[2019-08-06 00:06] VITALS: BP 106/63
[2019-08-06 01:00] VITALS: BP 129/67
[2019-08-06 02:46] VITALS: BP 127/64
--- NOTE | 2019-08-06 02:47 | NUR ---
RN medsuryuli notes PRBC transfusion is finished infusing. PT VS is stable. No adverse reaction. Pt tolerated transfusion well. BP 127/64, pulse 107, Respiration 18, O2 sat is 100% in 2L NC, Temp 98.7. Will continue to monitor.
[2019-08-06] MEDS: IV LR 1000 ML 1,000 ML IV PRN (04:15)
--- NOTE | 2019-08-06 07:00 | NUR ---
RN medsurg closing notes Pt is sleeping in bed comfortably. Respiration is normal in 2 L NC. NO SOB. No S/S of distress noted. IV sites at right wrist is clean, patent, intact and infusing well LR @ 75 ml/hr. Routine meds given as ordered. PRBC 1 unit transfused as ordered. Pt tolerated well. Left hip dressing clean, dry and intact. Left shoulder sling is in placed, no numbness, finger warm to touch and able to wiggle fingers. VS is stable. All needs met. Kept Pt warm, dry, clean and comfortable. Instructed to call. Safety precautions is maintained. Bed at low position, brakes locked, side rails upX2 and call light is within reach. Will endorse to morning nurse for YARA.
--- NOTE | 2019-08-06 07:20 | NUR ---
MS RN OPENING NOTE RECEIVED PT IN BED, ALERT AND ORIENTED X1-2, PRIMARILY DUTCH SPEAKING. BREATHING IS EVEN AND UNLABORED ON 2L NC, NO ACUTE DISTRESS NOTED AT THIS TIME. RIGHT WRIST #22G IS INFUSING LR @ 75ML/HR WITHOUT REDNESS OR SWELLING. LEFT ARM SLING NOTED TO BE IN PLACE, NEUROVASCULAR STATUS AND SURGICAL DRESSINGS INTACT. SCDS IN PLACE, ASPIRATION PRECAUTIONS MAINTAINED. ALL NEEDS ATTENDED TO. BED IS LOCKED AND IN LOWEST POSITION, SIDE RAILS UP X2, BED ALARM ON, CALL LIGHT AND POSSESSIONS WITHIN REACH.
[2019-08-06 07:25] LABS: CALCIUM, SERUM 7.9 mg/dL (8.5-10.1); CREATININE 0.6 mg/dL (0.6-1.3); PHOSPHORUS 3.2 mg/dL (2.5-4.9)
[2019-08-06 07:27] LABS: BASOPHILS % (AUTO) 0.4 % (0.0-2.0); EOSINOPHILS % (AUTO) 3.7 % (0.0-6.0); HEMATOCRIT 29 % (33-45); HEMOGLOBIN 9.8 g/dL (11.5-14.8); LYMPHOCYTES # (AUTO) 1.3 /CMM (0.8-4.8); LYMPHOCYTES % (AUTO) 12.7 % (20.0-44.0); MEAN CORPUSCULAR HGB CONC 34 g/dl (31.0-36.0); MEAN CORPUSCULAR VOLUME 84 fL (82-100); MONOCYTES # (AUTO) 0.7 /CMM (0.1-1.30); MONOCYTES % (AUTO) 6.6 % (2.0-12.0); NEUTROPHILS # (AUTO) 7.6 /CMM (1.8-8.9); NEUTROPHILS % (AUTO) 76.6 % (43.0-81.0); PLATELET COUNT (AUTO) 364 /CMM (150-450); RED BLOOD CELL COUNT(AUTO) 3.46 MIL/uL (4.0-5.2); WHITE BLOOD COUNT (AUTO) 9.9 K/uL (4.3-11.0)
[2019-08-06 08:00] VITALS: BP 144/87
[2019-08-06] MEDS: METOPROLOL TARTRATE 50 MG TABLET PO SCH ×2 (08:44→21:24)
[2019-08-06] MEDS: risperiDONE 0.25 MG TABLET PO SCH ×3 (08:44→22:00)
[2019-08-06] MEDS: GABAPENTIN 100 MG CAPSULE PO SCH ×3 (08:44→16:56)
[2019-08-06] MEDS: DULOXETINE HCL 30 MG CAPSULE.DR PO SCH (08:44)
[2019-08-06] MEDS: LEVOFLOXACIN 750 MG /D5W 150ML 750 MG in PREMIX 1 EA IV SCH (08:44)
[2019-08-06] MEDS: ENOXAPARIN SODIUM 40 MG/0.4 ML DISP.SYRIN SQ SCH (08:47)
[2019-08-06] MEDS ORDERED: ENOX40DI SQ (10:13)
[2019-08-06] MEDS ORDERED: LEVO750T21 PO (10:13)
[2019-08-06] MEDS ORDERED: METO50TA16 PO (10:13)
[2019-08-06] MEDS ORDERED: DILT-3 PO (10:13)
[2019-08-06] MEDS: DILTIAZEM HCL CD 240 MG PO SCH (10:34)
[2019-08-06] MEDS: IBUPROFEN 600 MG TABLET PO PRN ×2 (10:34→16:56)
--- NOTE | 2019-08-06 15:15 | NUR ---
MS RN NOTE SANTHOSH MARSHALL FOR DR. RODRIGUEZ AT THE BEDSIDE FOR ASSESSMENT, NO NEW ORDERS, NO DRESSING CHANGE TODAY, SURGICAL DRESSINGS ARE CLEAN, DRY AND INTACT.
[2019-08-06 16:00] VITALS: BP 102/59
--- NOTE | 2019-08-06 18:28 | NUR ---
MS RN CLOSING NOTE PT IN BED, ALERT AND ORIENTED X1-2, PRIMARILY [place] SPEAKING. BREATHING IS EVEN AND UNLABORED ON 2L NC, NO ACUTE DISTRESS NOTED AT THIS TIME. RIGHT WRIST #22G IS INFUSING LR @ 75ML/HR WITHOUT REDNESS OR SWELLING. LEFT ARM SLING NOTED TO BE IN PLACE, NEUROVASCULAR STATUS AND SURGICAL DRESSINGS INTACT. ADLS PROVIDED AND PT ASSISTED TO TURN AND REPOSITION Q2H FOR THE DURATION OF THE SHIFT. SCDS IN PLACE, ASPIRATION PRECAUTIONS MAINTAINED. ALL NEEDS ATTENDED TO. BED IS LOCKED AND IN LOWEST POSITION, SIDE RAILS UP X2, BED ALARM ON, CALL LIGHT AND POSSESSIONS WITHIN REACH, DAUGHTER AT THE BEDSIDE. WILL ENDORSE TO STRIP CUTTER NURSE FOR CONTINUITY OF CARE.
--- NOTE | 2019-08-06 19:59 | NUR ---
RN MS OPENING NOTES RECEIVED PATIENT IN BED AWAKE, ALERT. AND ORIENTED X1, TURKS AND [place] SPEAKING. DAUGHTER AT BEDSIDE. BREATHING EVEN AND UNLABORED. NO SOB NOTED. ON 2LPM VIA NC. NO S/S OF PAIN OR DISCOMFORT. NO FACIAL GRIMACING. IV ON RIGHT WRIST INTACT AND PATENT. SKIN DRY AND WARM TO TOUCH. AFEBRILE. PATIENT NOTED WITH LEFT ARM SLING, IN PLACE. SURGICAL DRESSINGS INTACT. ALL OTHER NEEDS ATTENDED TO. SAFETY MEASURES IN PLACE. CALL LIGHT WITHIN REACH. WILL CONTINUE TO MONITOR.
[2019-08-06 20:00] VITALS: BP 112/63
--- NOTE | 2019-08-06 23:11 | NUR ---
RN MS NOTES PATIENT'S IV ON RIGHT WRIST INFILTRATED. UNABLE TO USE SAME ARM. ALSO UNABLE TO USE LEFT ARM DUE TO SURGERY. REQUESTED FROM YULIANA IQBAL NP FOR ORDER TO START IV ON FOOT. PER ANGELIC BRIDGES TO START IV ON FOOT. ORDER NOTED AND CARRIED OUT.
--- NOTE | 2019-08-06 23:13 | NUR ---
RN MS NOTES NEW IV STARTED ON THE LEFT FOOT G#22 BY ICU CHARGE NURSE, KAT. INTACT AND PATENT. WILL CONTINUE TO MONITOR.
[2019-08-07] MEDS: IV LR 1000 ML 1,000 ML IV PRN (00:59)
--- NOTE | 2019-08-07 01:00 | NUR ---
RN MS NOTES PATIENT IN BED, AWAKE. MOVING BOTH LOWER EXTREMITIES. TALKING IN KYRGYZ. REMOVING BLANKETS. BREATHING EVEN AND UNLABORED. ON 2LPM VIA NC. WILL CONTINUE TO MONITOR.
[2019-08-07] MEDS: IBUPROFEN 600 MG TABLET PO PRN ×3 (01:04→20:39)
--- NOTE | 2019-08-07 06:52 | NUR ---
RN MS CLOSING NOTES PATIENT IN BED AWAKE, NO ACUTE CHANGES THROUGHOUT SHIFT. ALTHOUGH PATIENT HAD VERY LITTLE SLEEP. BREATHING EVEN AND UNLABORED. NO SOB NOTED. ON 2LPM VIA NC. NO S/S OF PAIN OR DISCOMFORT. NO FACIAL GRIMACING. IV ON LEFT FOOT INTACT AND PATENT WITH IVF INFUSING. REMAINS AFEBRILE. LEFT ARM SLING IN PLACE. SURGICAL DRESSINGS INTACT. BILATERAL FEET ELEVATED/OFFLOADED. KEPT CLEAN DRY AND COMFORTABLE. ALL NEEDS ATTENDED TO. SAFETY MEASURES IN PLACE. CALL LIGHT WITHIN REACH. WILL ENDORSE TO ONCOMING NURSE FOR YARA.
--- NOTE | 2019-08-07 07:40 | NUR ---
MS RN OPENING NOTES PATIENT IN BED ALERT AND ORIENTED X1; SWEDISH SPEAKING. AFEBRILE WITH NO S/S OF DISTRESS OBSERVED. BREATHING REGULAR AND UNLABORED WITH OXYGEN AT 2L/MIN VIA NASAL CANNULA. ON MECHANICAL SOFT DIET, TOLERATING WELL. LEFT ARM SLING IN PLACED. SEEN CONTINUOUSLY MOVING BOTH LOWER EXTREMITIES. . IV LINE ON LEFT FOOT G22 INTACT AND PATENT; INFUSING WELL. FOR PHYSICAL THERAPY TODAY AND WOUND DRESSING CHANGE BY MD. KEPT CLEAN AND DRY. REPOSITIONED EVERY 2HRS. CONTINUOUSLY MONITORED.
[2019-08-07 08:00] VITALS: BP 133/72
[2019-08-07] MEDS: METOPROLOL TARTRATE 50 MG TABLET PO SCH ×2 (08:30→20:40)
[2019-08-07] MEDS: DULOXETINE HCL 30 MG CAPSULE.DR PO SCH (08:30)
[2019-08-07] MEDS: GABAPENTIN 100 MG CAPSULE PO SCH ×3 (08:30→17:21)
[2019-08-07] MEDS: DILTIAZEM HCL CD 240 MG PO SCH (08:30)
[2019-08-07] MEDS: risperiDONE 0.25 MG TABLET PO SCH ×3 (08:31→21:46)
[2019-08-07] MEDS: ENOXAPARIN SODIUM 40 MG/0.4 ML DISP.SYRIN SQ SCH (08:32)
--- NOTE | 2019-08-07 13:38 | NUR ---
MS RN NOTE PER SANTHOSH MARSHALL FOR NO DRESSING CHANGE NEEDED PRIOR TO D/C. DRESSING IS CLEAN, DRY AND INTACT.
[2019-08-07 16:00] VITALS: BP 119/81
--- NOTE | 2019-08-07 18:42 | NUR ---
MS RN CLOSING NOTES PATIENT IN BED ALERT AND ORIENTED X1; SPANISH SPEAKING; FAMILY ON BEDSIDE. AFEBRILE WITH NO S/S OF DISTRESS OBSERVED. BREATHING REGULAR AND UNLABORED WITH OXYGEN AT 2L/MIN VIA NASAL CANNULA. ON MECHANICAL SOFT DIET, TOLERATED WELL. LEFT ARM SLING IN PLACED. SURGICAL WOUND DRESSING CLEAN AND INTACT WITH NO BLEEDING NOTED. FOR DISCHARGE TONIGHT TO [facility]. IV LINE REMOVED; PICTURES OF SKIN ALTERATIONS TAKEN, ATTACHED ON THE CHART. REPORT GIVEN TO MANDA LICENSED NURSE. WILL ENDORSE TO NOC SHIFT FOR DISCHARGE AND PICK-UP.
--- NOTE | 2019-08-07 19:42 | NUR ---
MS RN RECEIVE PT IN BED A/O X 1, RESPIRATIONS EVEN AND UNLABORED, STABLE,SAFETY MEASURES IN PLACE. WILL CONTINUE TO MONITOR. FOR DISCHARGE TONIGHT AWAITING AMBULANCE
[2019-08-07 20:00] VITALS: BP 117/66
[2019-08-07 20:46] VITALS: BP 117/66
--- NOTE | 2019-08-07 22:22 | NUR ---
PATIENT DISCHARGE PT WAS TOY ASSEMBLER BY MADELEINE AT 2220 TRIP # [id number] VIA [facility] D/C TO [facility]. REPORT GIVEN BY DAY SHIFT RN TO MANDA. NOTED WITH LEFT ARM SLING. SURGICAL WOUND DRESSING CLEAN AND INTACT, DRY WITH NO S/S OF BLEEDING NOTED. PATIENT STABLE CONDITION NO S/S OF DISTRESS NOTED, RESPIRATIONS EVEN AND UNLABORED. HEALTH EDUCATION WAS PROVIDED TO FAMILY AND PT. DISCHARGE DOCUMENTS WAS PROVIDED TO THE EMT PERSONELL. CONTINUE MEDICATION PRESCRIPTION WAS INCLUDED. NO I.V HEPLOCK. ALL BELONGINGS WAS TAKEN, FAMILY APPRECIATIVE TO NURSES AND THANKFUL.
== END 2019-08-07 22:15 | DRG 480 ==
LOC: ER 15:06 → MED 18:06
PROVIDERS: ADMIT Internal Medicine; ATTEND Nurse Practitioner Acute Care
PROC: 0QS706Z Reposition Left Upper Femur with Intramedullary Internal Fixation Device, Open Approach (ICD-10-PCS; principal; 2019-08-01)
PROC: 30233N1 Transfusion of Nonautologous Red Blood Cells into Peripheral Vein, Percutaneous Approach (ICD-10-PCS; 2019-08-05)
DX: S72.142A Displaced intertrochanteric fracture of left femur, initial encounter for closed fracture (principal); G93.41 Metabolic encephalopathy; S42.212A Unspecified displaced fracture of surgical neck of left humerus, initial encounter for closed fracture; N39.0 Urinary tract infection, site not specified; D62 Acute posthemorrhagic anemia; E86.0 Dehydration; I10 Essential (primary) hypertension; W19.XXXA Unspecified fall, initial encounter; Y92.129 Unspecified place in nursing home as the place of occurrence of the external cause; E78.5 Hyperlipidemia, unspecified; G30.9 Alzheimer's disease, unspecified; F02.80 Dementia in other diseases classified elsewhere, unspecified severity, without behavioral disturbance, psychotic disturbance, mood disturbance, and anxiety; Z95.5 Presence of coronary angioplasty implant and graft; I25.10 Atherosclerotic heart disease of native coronary artery without angina pectoris; Z90.710 Acquired absence of both cervix and uterus; Z87.440 Personal history of urinary (tract) infections; Z82.49 Family history of ischemic heart disease and other diseases of the circulatory system; Z79.02 Long term (current) use of antithrombotics/antiplatelets; Z79.899 Other long term (current) drug therapy; I25.2 Old myocardial infarction; F32.9 Major depressive disorder, single episode, unspecified; I48.91 Unspecified atrial fibrillation; F41.9 Anxiety disorder, unspecified; G62.9 Polyneuropathy, unspecified; F29 Unspecified psychosis not due to a substance or known physiological condition; I70.0 Atherosclerosis of aorta
CPT/HCPCS: 36415; 71045-TC; 73030-TC; 73200-TC; 73502; 73552; 73560-TC; 73590-TC; 73700-TC; 80048-TC; 80053-TC; 81000-TC; 83735-TC; 84100-TC; 84439-TC; 84443-TC; 85025-TC; 85027-TC; 85730-TC; 86850-TC; 86921-TC; 87081-TC; 87086-TC; 94799-TC; 97110-TC; 97112-TC; 97530-TC; A4216; A6209; C1713; G0378; J0690; J1100; J1170; J1644; J1650; J1956; J2270; J2370; J2405; J2704; J3490; J7050; J7060; J7120; P9016-BL

== ENCOUNTER 2019-10-17 21:14 | Inpatient (IN) | payer MEDICARE, MEDICAID ==
[~2019-10-17] VITALS: Ht 157.5 cm; Wt 54.0 kg
[~2019-10-17 21:14] MED LIST changes: +ACET-868 PO; -ASPI-1152 PO; +ATOR40TA PO; +BISA10SU11 RC; -CLOP75TA15 PO; +DILT-3 PO; +DULO60CA45 PO; +ENOX40DI SQ; -ESOM20CA PO; -FERR1TAB44 PO; +GABA-532 PO; -ISOS30TA PO; +LEVO750T21 PO; +MAGN400O6 PO; +METO50TA16 PO; -METO50TA7 PO; +RISP0.253 PO; -VENL25TA4 PO
--- NOTE | 2019-10-17 21:15 | NUR ---
"BIB FROM [facility]. PER RA, "MORE CONFUSED THAN NORMAL AT FACILITY" BS 182" pt on eveline, mary grace noted, -sob, pending md ruffin
[2019-10-17] MEDS ORDERED: PIPERACILLIN /TAZOBACTAM 3.375 G VIAL IV ONE (21:45)
[2019-10-17] MEDS ORDERED: VANCOMYCIN 1 GM VIAL ONE (21:45)
--- NOTE | 2019-10-17 21:47 | NUR ---
BG [id number]
[2019-10-17 21:48] LABS: BASOPHILS % (AUTO) 0.7 % (0.0-2.0); EOSINOPHILS % (AUTO) 1.4 % (0.0-6.0); HEMATOCRIT 34 % (33-45); LYMPHOCYTES # (AUTO) 0.5 /CMM (0.8-4.8); LYMPHOCYTES % (AUTO) 9.9 % (20.0-44.0); MEAN CORPUSCULAR HGB CONC 33 g/dl (31.0-36.0); MEAN CORPUSCULAR VOLUME 80 fL (82-100); MONOCYTES # (AUTO) 0.4 /CMM (0.1-1.30); MONOCYTES % (AUTO) 7.6 % (2.0-12.0); NEUTROPHILS # (AUTO) 4.3 /CMM (1.8-8.9); NEUTROPHILS % (AUTO) 80.4 % (43.0-81.0); PLATELET COUNT (AUTO) 428 /CMM (150-450); RED BLOOD CELL COUNT(AUTO) 4.24 MIL/uL (4.0-5.2); WHITE BLOOD COUNT (AUTO) 5.4 K/uL (4.3-11.0)
[2019-10-17 21:59] LABS: CALCIUM, SERUM 8.5 mg/dL (8.5-10.1); CREATININE 0.9 mg/dL (0.6-1.3); POTASSIUM 3.6 mmol/L (3.5-5.1)
[2019-10-17] MEDS ORDERED: PIPERACILLIN /TAZOBACTAM 3.375 G in IV D5W 50 ML IV ONE (22:00)
[2019-10-17] MEDS ORDERED: IV NS 0.9% 1,000 ML BAG IV ONE (22:00)
[2019-10-17] MEDS ORDERED: VANCOMYCIN 1 GM in IV D5W 250 ML IV ONE (22:00)
[2019-10-17 22:07] LABS: APPEARANCE,URINE Slightly Cloudy (CLEAR); BILIRUBIN,URINE Negative (NEGATIVE); BLOOD, URINE Trace-lysed Ery/uL (NEGATIVE); COLOR,URINE Yellow (YELLOW); KETONES,URINE Negative (NEGATIVE); LEUKOCYTE ESTERASE ,URINE Large (NEGATIVE); NITRITE, URINE Positive (NEGATIVE); PH,URINE 8.5 (5.0-8.0); PROTEIN,URINE >=300 mg/dl (NEGATIVE); UGLUCOSE Negative (NEGATIVE); UROBILINOGEN,URINE 0.2 EU/dL (0.2)
[2019-10-17 22:10] LABS: BILIRUBIN,DIRECT 0.1 mg/dL (0.0-0.2); BILIRUBIN,TOTAL 0.2 mg/dL (0.2-1.0)
[2019-10-17 22:11] LABS: TOTAL PROTEIN, SERUM 6.9 g/dL (6.4-8.2)
[2019-10-17 22:33] LABS: BACTERIA,URINE 2+ /HPF (None Seen); SQUAMOUS EPITHELIAL CELL,UR Few /HPF (None Seen); WBC,URINE 21-50 /HPF (0-3)
--- NOTE | 2019-10-17 23:07 | NUR ---
RN SUP called, waiting for bed assignment
--- NOTE | 2019-10-17 23:12 | NUR ---
[facility] paged for panel call, waiting for call back from Dr. Floyd
[2019-10-17] MEDS ORDERED: OMEP40CA13 PO (23:27)
[2019-10-17] MEDS ORDERED: FERR325T23 PO (23:27)
[2019-10-17] MEDS ORDERED: ALEN70TA3 PO (23:27)
[2019-10-17] MEDS ORDERED: AMIN30LI2 PO (23:27)
[2019-10-17] MEDS ORDERED: DILT-4 PO (23:27)
[2019-10-17] MEDS ORDERED: TRAM50TA2 PO (23:27)
[2019-10-17] MEDS ORDERED: METO50TA16 PO (23:27)
[2019-10-17] MEDS ORDERED: ZOLPIDEM TARTRATE 5 MG TABLET PO PRN (23:30)
[2019-10-17] MEDS ORDERED: MAGNESIUM HYDROXIDE 30 ML UDC PO PRN (23:30)
[2019-10-17] MEDS ORDERED: HYDROCODONE/APAP 5/325MG 1 EACH TABLET PO PRN (23:30)
[2019-10-17] MEDS ORDERED: Z GUARD REMEDY 2 OZ OINT TP PRN (23:30)
[2019-10-17] MEDS ORDERED: MAG HYDROX/AL HYDROX/SIMETH 30 ML UDC PO PRN (23:30)
[2019-10-17] MEDS ORDERED: ONDANSETRON HCL/PF 4 MG/2 ML VIAL IVP PRN (23:30)
[2019-10-18] VITALS (11 sets, daily range): BP systolic 119–149; BP diastolic 21–91
[2019-10-18] MEDS ORDERED: GUAIFENESIN/CODEINE 10 ML UDC PO PRN
--- NOTE | 2019-10-18 | NUR ---
RN ADMITTING TELE OPENING NOTES RECEIVED PATIENT FROM ER VIA GURNEY SAFELY TRANSFERRED TO BED, [facility], AT THIS TIME NONVERBAL, RESPONSIVE TO VERBAL TACTILE, ON 2 L VIA MD SP02 96-98%. ADMITTING DX PNA,UTI,SEPSIS, NOTED SKIN PALE IN COLOR, VS 120/64,115,20,98.4. IV SITE TO LEFT HAND #18G AND RIGHT FA #20 INTACT AND PATENT NO REDNESS, NO INFILTRATION, BODY ASSESSMENT DONE BLANCHABLE SACRAL REDNESS NOTED. PLACED ON CARDIAC TELE MONITOR ST 115. NO BELONGINGS, WOUND PHOTO DONE, DAUGHTER HAM AT BEDSIDE, DISCUSSED CODE STATUS, PER DAUGHTER "DNR/DNI,NO INTUBATION." MD AWARE, NOTIFIED MD OF PROCALCITONIN CRITICAL RESULTS, PATIENT REPOSITIONED KEPT CLEAN , WILL FOLLOW MD ORDERS AND CONTINUE TO MONITOR AND ATTEND TO NEEDS.
--- NOTE | 2019-10-18 00:08 | NUR ---
report given to kaushik hernandez for justa pt transported to 3rd floor
[2019-10-18] MEDS: IV NS 0.9% 1,000 ML IV PRN ×2 (00:23→17:30)
[2019-10-18] MEDS ORDERED: PIPERACILLIN /TAZOBACTAM 3.375 G in IV NS 0.9% 100 ML IV ONE ×2 (00:30→05:00)
--- NOTE | 2019-10-18 03:13 | NUR ---
RINA MS NOTES PER PLACE CODE STATUS DNR/DNI. TO AND READ BACK AND WITNESSED WITH ANOTHER RN RICH[place]D. Addendum: 10/18/19 at 0315 by SHANE CASTELLON RN JASPAL IS IN CHART.
[2019-10-18] MEDS ORDERED: PIPERACILLIN /TAZOBACTAM 3.375 G VIAL IV ONE (04:18)
[2019-10-18 06:13] LABS: BASOPHILS % (AUTO) 0.8 % (0.0-2.0); EOSINOPHILS % (AUTO) 3.1 % (0.0-6.0); HEMATOCRIT 31 % (33-45); HEMOGLOBIN 9.8 g/dL (11.5-14.8); LYMPHOCYTES # (AUTO) 0.4 /CMM (0.8-4.8); MEAN CORPUSCULAR HGB CONC 32 g/dl (31.0-36.0); MEAN CORPUSCULAR VOLUME 80 fL (82-100); MONOCYTES # (AUTO) 0.5 /CMM (0.1-1.30); MONOCYTES % (AUTO) 11.6 % (2.0-12.0); NEUTROPHILS % (AUTO) 73.5 % (43.0-81.0); PLATELET COUNT (AUTO) 351 /CMM (150-450); RED BLOOD CELL COUNT(AUTO) 3.83 MIL/uL (4.0-5.2)
[2019-10-18 06:32] LABS: THYROID STIMULATING HORMONE 0.696 uIU/mL (0.358-3.74)
--- NOTE | 2019-10-18 06:50 | NUR ---
[facility] NOTES PATIENT IN BED WITH ALOC, HOWEVER NOTED MORE AWAKE NOW EYES OPENING, NOTED MUMBLES. RESPONSIVE TO VERBAL TACTILE, ON 2 L VIA NC SP02 96-98%. NOTED SKIN PALE IN COLOR BUT NOTED LESS SINCE ADMISSION, VS REMAINS WNL IV SITE TO LEFT HAND #18G AND RIGHT FA #20 INTACT AND PATENT NO REDNESS, NO INFILTRATION, BODY ASSESSMENT DONE BLANCHABLE SACRAL REDNESS NOTED. PLACED ON CARDIAC TELE MONITOR ST 115 SINCE ADMISSION, PATIENT REPOSITIONED KEPT CLEAN , WILL CONTINUE TO MONITOR AND ATTEND TO NEEDS. 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 REMAINS COMFORTABLE AT THIS TIME, WILL CONTINUE TO MONITOR AND ATTEND TO NEED AND ENDORSE TO NEXT SHIFT.
[2019-10-18 07:21] LABS: CALCIUM, SERUM 7.6 mg/dL (8.5-10.1); CREATININE 0.7 mg/dL (0.6-1.3); MAGNESIUM 2.2 mg/dL (1.8-2.4); PHOSPHORUS 2.1 mg/dL (2.5-4.9); POTASSIUM 3.4 mmol/L (3.5-5.1)
[2019-10-18] MEDS ORDERED: ERGO500014 PO (07:30)
[2019-10-18] MEDS ORDERED: NA P133E RC (07:30)
[2019-10-18] MEDS ORDERED: ASCO500T9 PO (07:30)
[2019-10-18] MEDS ORDERED: IBUP-1955 PO (07:30)
[2019-10-18] MEDS ORDERED: MULT-447 PO (07:30)
[2019-10-18] MEDS ORDERED: TRAM50TA2 PO (07:30)
[2019-10-18] MEDS ORDERED: SACC250C PO (07:30)
[2019-10-18] MEDS ORDERED: FEE PK DOSING 1 MIN EA MC ONE (07:51)
--- NOTE | 2019-10-18 08:05 | NUR ---
GUIDE ALPINE OPENING NOTES RECEIVED PATIENT ON BED AWAKE AND MUMBLES. RESPONSIVE TO VERBAL AND TACTILE STIMULI WITH NO EYE CONTACT. RESPIRATION EVEN AND NON LABORED WITH NO ACUTE RESPIRATORY DISTRESS, ON O2 AT 2LPM, HOB KEPT ELEVATED, BOTH LUNGS AUSCULTATED WITH PRESENCE OF CRACKLES. ABD SOFT AND NON DISTENDED WITH ACTIVE BOWEL SOUNDS, INCONTINENT B&B. SKIN WARM AND MOIST, TEMP 100.0, NIGHT RN PLACED ICE PACK BOTH AXILLARY AT 0730. RE-CHECKED WITH TEMP 97.8, WILL MONITOR. IV SITE AT LEFT HAND AND RIGHT FA, PATENT IN FLUSHING WITH NS RUNNING 100 ML/HR. PT ON NPO WITH ORDER FOR SWALLOW EVAL. TELE MONITOR SHOWS 120. BED ALARM ON, BED LOW AND LOCKED POSITIONED, CLOSED TO NURSING STATION. WILL CONTINUE TO MONITOR.
[2019-10-18] MEDS: PANTOPRAZOLE 40 MG VIAL IV SCH (08:35)
--- NOTE | 2019-10-18 08:50 | NUR ---
PAINTER SUPERVISOR NOTES NOTIFIED [facility] WET CROWN BLOCKING OPERATOR FOR TEMP ELEVATING 100.8 NOW. TYLENOL ORDER IS PO. OBTAINED NEW ORDER FOR BEDSIDE SWALLOW EVAL. READ BACK, NOTED AND CARRIED OUT.
--- NOTE | 2019-10-18 08:54 | NUR ---
FRICTION SAW OPERATOR NOTES MAR FROM [facility] STATED PT HAS CONTACT ISOLATION WITH MRSA URINE ORDERED ON 09/18/2019. CALLED SNF AND VERIFIED WITH AMOL FLYNN ABOUT THE ISOLATION, PER SNF RECORDS SHOWS ISOLATION DC'D ON 09/28/2019. PT NOW FREE FROM ANY KIND OF ISOLATION. WILL MONITOR PATIENT
--- NOTE | 2019-10-18 09:17 | NUR ---
COOK BOAT NOTES PERFORMED BEDSIDE SWALLOW EVAL, PATIENT PLACED ON HIGH MAGALLON BED POSITION, EYES CLOSED BUT RESPOSINVE VERBALLY AND TACTILE, ABLE TO FOLLOW COMMANDS SUCH OPENING MOUTH, LIFTING HANDS, MOVING FINGERS ON HAND AND TOES. PT ABLE TO TOLERATE APPLE SAUCE AND PLAIN WATER WITH NO CHOKING, COUGHING, FOOD POCKETING, WATER DRIBBLING OUT FROM THE MOUTH. PT TOLERATE SMALL FREQUENT FEEDING. CRACKLES HEARD AUDIBLY DUE TO PNA. ASSESSMENT REFERRED OT [facility] WEBSPHERE COMMERCE CONSULTANT WITH NEW ORDER TO GIVEN TYLENOL PO ORDERED AND START FULL LIQUID DIET WITH STRICT ASPIRATION PRECAUTION. ORDER READ BACK, NOTED AND CARRIED OUT. WILL CONTINUE TO MONITOR CARE.
[2019-10-18] MEDS: ACETAMINOPHEN 325 MG TABLET PO PRN (09:22)
--- NOTE | 2019-10-18 09:47 | NUR ---
RN NOTES RE-CHECKED TEMP 99.3 F AXILLARY. SPONGE BATH DONE. PT ASLEEP. HOB ON SEMI FOWLERS. CONTINUE ON O2 AT 2LPM. NO SOB NOTED
--- NOTE | 2019-10-18 10:50 | NUR ---
RN NOTES PT SEEN BY [facility] FEED MANAGER WITH MS. CHEEK, DAUGHTER ON BEDSIDE.
--- NOTE | 2019-10-18 11:05 | NUR ---
RN NOTES DAUGHTER HAM REQUESTED IF NEBULIZER CAN BE STARTED, REFERRED TO [facility] INSTALLATION SERVICE REPRESENTATIVE WITH NEW ORDER OF ALBUTEROL 2.5 MG/ML VIA NEBULIZER Q4 PRN. ORDER READ BACK, NOTED AND CARRIED OUT. RT NOTIFIED
[2019-10-18] MEDS: PIPERACILLIN /TAZOBACTAM 3.375 G in IV D5W 100 ML IV SCH ×2 (12:00→21:30)
[2019-10-18] MEDS ORDERED: POTASSIUM CHLORIDE 20 MEQ POWDER PACKET PO SCH (12:00)
[2019-10-18] MEDS: ALBUTEROL FS 2.5 MG/3 ML VIAL.NEB NEB PRN ×2 (12:14→19:31)
[2019-10-18] MEDS ORDERED: NEUTRA PHOS 1 POWD.PACKET PO ONE (12:30)
[2019-10-18] MEDS ORDERED: BISACODYL SUPP (10 MG) 10 MG/SUPP.RECT SUPP.RECT RC PRN (13:30)
[2019-10-18] MEDS ORDERED: TRAMADOL HCL 50 MG TABLET PO PRN (13:30)
--- NOTE | 2019-10-18 14:33 | NUR ---
RN NOTES TEMPERATURE CHECKED WITH 98.5F. PT CONTINUE ON O2 AT 2LPM, NO SOB NOTED. ZOSYN BEING ADMINISTERED ORDERED. WILL CONTINUE TO MONITOR
[2019-10-18] MEDS: VANCOMYCIN 1 GM in IV D5W 250 ML IV SCH (16:10)
[2019-10-18] MEDS: GABAPENTIN 100 MG CAPSULE PO SCH (16:42)
--- NOTE | 2019-10-18 18:42 | NUR ---
RN NOTES CALLED [facility] MILTON LAMP SHADE JOINER, PT HYPERVENTILATING 28 BREATH PER MINUTE, O2 SAT 97% AT 3LPM VIA NASAL CANNULA. HR 120. PRESENCE OF SOB AND DIFFICULTY IN BREATHING. HOB ELEVATED. SWEATING, AFEBRILE. 97.2F ORALLY. NEW ORDER OBTAINED OF ABG STAT, ATIVAN 0.25 MG IV PUSH Q4 PRN FOR AGITATION. ORDER READ BACK NOTED AND CARRIED OUT. FAMILY ON BEDSIDE, NOTIFIED.
[2019-10-18] MEDS: LORAZEPAM INJ 2 MG/ML VIAL IV PRN (18:57)
[2019-10-18 19:19] LABS: ABG BASE EXCESS -7.8 mmol/L; ABG OXYGEN SATURATION 97.3 % (92.0-98.5); ABG PCO2 44.3 mmHg (35.0-45.0); ABG PH 7.252 (7.350-7.450); ABG PO2 128.1 mmHg (75.0-100.0); AaDO2 540.6 mmHg; COHb 0.3 % (0.5-1.5); MetHb 0.4 % (0.0-1.5); O2Hb 96.6 % (94.0-97.0); SITE, ABG Right Radial; VENT MODE, BG NONREBREATHER
--- NOTE | 2019-10-18 19:25 | NUR ---
M/S RN CLOSING NOTES PT WITH FAMILY ON BEDSIDE, A/O X1 RESPONSIVE TO LIGHT AND DEEP PAIN. ABG STAT ORDERED ALREADY DRAWN. ATIVAN 0.25 MG GIVEN IV PUSH, PT WITH RR 23, BREATHING MANAGED BY O2.HOB REMAINED ELEVATED. AFEBRILE WITH WARM AND MOIST SKIN. ABD SOFT AND NON DISTENDED WITH ACTIVE BOWEL SOUNDS, NO BM TODAY. IV SITE AT LEFT HAND GAUGE 18, RIGHT HAND GAUGE 20 PATENT IN FLUSHING, NS RUNNING 100 ML/HR. ALL CARE ATTENDED. ENDORSED PT CARE TO NEXT SHIFT.
--- NOTE | 2019-10-18 19:30 | NUR ---
MS RN NOTES RECEIVED PATIENT FROM MORNING SHIFT, ALERT AND ORIENTED X 1. NONVERBAL WITH FAMILY ON BEDSIDE. WARM TO TOUCH AND SWEATY. BREATHING SHALLOW AND FAST ON 100% NON-REBREATHER MASK. HEART RATE RANGING 140-150'S, SPO2 99%. LEFT HAND G18 AND RIGHT FOREARM G20 IV LINES INTACT AND PATENT FLUSHING AND INFUSING WELL WITH NO BLEEDING OR S/S OF INFECTION/INFILTRATION SEEN. WILL CONTINUE TO MONITOR.
[2019-10-18] MEDS ORDERED: DILTIAZEM HCL IV 125 MG in IV NS 0.9% 100 ML IV PRN ×5 (20:00→20:30)
--- NOTE | 2019-10-18 20:00 | NUR ---
MS RN NOTES RT CALLED AND REPORTED ABG RESULT. MADE AWARE WITH ORDERS FOR STAT EKG, TRANSFER TO ICU AND START CARDIZEM DRIP AND PLAVIX. CHARGE NURSE NOTIFIED ICU WITH AVAILABLE BED ON ROOM 261. REPORT GIVEN TO RINA BENDER. CONNECTED PATIENT TO INJECTION MOLDING PROCESS TECHNICIAN. FAMILY AWARE OF TRANSFER AND ASKED THEM TO GO TO THE WAITING ROOM NEAR THE ICU. TRANSFER PATIENT VIA HOSPITAL BED WITH ASSIST FROM NETWORK ARCHITECT. RECEIVED BY RINA BENDER AND NETWORK ARCHITECT IN ICU.
--- NOTE | 2019-10-18 20:05 | NUR ---
TAX AUDITOR RCD PT FROM 3W FOR AFIB TO START ON CARDIZEM DRIP UPON ARRIVAL TO ICU PT NOTED ST 140s ON MONITOR. CONFIRMED BY EKG. PER DR MENENDEZ DO NOT BEGIN CARDIZEM DRIP; PT SWITCHED FROM NRB TO NC 6L. FAMILY AT BEDSIDE. CONTINUE TO MONITOR.
[2019-10-18] MEDS ORDERED: IV NS 0.9% 500 ML IV ONE (20:30)
[2019-10-18] MEDS: METOPROLOL TARTRATE 50 MG TABLET PO SCH (21:00)
[2019-10-18] MEDS: ATORVASTATIN 40 MG TABLET PO SCH (21:27)
--- NOTE | 2019-10-18 21:28 | NUR ---
SPARMAKER PT LETHARGIC AT THIS TIME UNABLE TO TAKE PO MEDS. CONTINUE TO MONITOR.
--- NOTE | 2019-10-18 22:00 | NUR ---
CHANGE CONTROL COORDINATOR RENDERED ORAL AND JENNIFER CARE. TURNED AND REPOSITIONED PT. REMAINS ON O2 6L NC NO DISTRESS NOTED. FAMILY REMAINS AT BEDSIDE. ALL QUESTIONS ANSWERED. CONTINUE TO MONITOR.
[2019-10-18] MEDS ORDERED: IV NS 0.9% 250 ML IV PRN (22:30)
[2019-10-19] VITALS (15 sets, daily range): BP systolic 95–158; BP diastolic 46–86
[2019-10-19] MEDS: IV NS 0.9% 1,000 ML IV PRN (02:03)
[2019-10-19] MEDS: PIPERACILLIN /TAZOBACTAM 3.375 G in IV D5W 100 ML IV SCH ×3 (04:32→21:29)
--- NOTE | 2019-10-19 05:18 | NUR ---
PROCESS SAFETY SPECIALIST PT REMAINS ST ON MONITOR. TOLERATING O2 6L NC WELL. CONTINUE TO MONITOR.
[2019-10-19 05:28] LABS: CALCIUM, SERUM 8.3 mg/dL (8.5-10.1); CREATININE 0.6 mg/dL (0.6-1.3); PHOSPHORUS 2.5 mg/dL (2.5-4.9); POTASSIUM 3.5 mmol/L (3.5-5.1)
--- NOTE | 2019-10-19 07:02 | NUR ---
GO GO DANCER PER FAMILY IT IS USUAL FOR PT TO HAVE EPISODES OF EXCESSIVE SWEATING.
[2019-10-19] MEDS: FERROUS SULFATE (325 MG) 325 MG/TAB TABLET PO SCH (09:06)
[2019-10-19] MEDS: DULOXETINE HCL 20 MG CAPSULE.DR PO SCH (09:06)
[2019-10-19] MEDS: MULTIVIT W/MINERALS 1 TAB TABLET PO SCH (09:06)
[2019-10-19] MEDS: PANTOPRAZOLE 40 MG VIAL IV SCH (09:06)
[2019-10-19] MEDS: METOPROLOL TARTRATE 50 MG TABLET PO SCH ×2 (09:07→21:00)
[2019-10-19] MEDS: GABAPENTIN 100 MG CAPSULE PO SCH ×3 (09:07→16:16)
[2019-10-19] MEDS: DILTIAZEM HCL CD 240 MG PO SCH (09:07)
[2019-10-19] MEDS: AMLODIPINE BESYLATE 2.5 MG TABLET PO SCH (09:07)
[2019-10-19] MEDS: ASCORBIC ACID 500 MG TABLET PO SCH (09:07)
[2019-10-19] MEDS: PROSOURCE / PROSTAT (PYXIS) 30 ML UDC PO SCH (09:08)
[2019-10-19] MEDS: LORAZEPAM INJ 2 MG/ML VIAL IV PRN (09:30)
[2019-10-19] MEDS: VANCOMYCIN 1 GM in IV D5W 250 ML IV SCH (09:31)
--- NOTE | 2019-10-19 11:20 | NUR ---
ICU/RN DOWNGRADE - TELE1 120#1 REPORT GIVEN TO TELE NURSE JOLEEN BARLOW ENDORSED TO CONTINUE CARE. PT TRANSFERRED VIA BED IN STABLE CONDITION.
--- NOTE | 2019-10-19 12:00 | NUR ---
DATA CONSULTANT NOTES RECEIVED PATIENT FROM ICU WITH BED. DAUGHTER AT BEDSIDE. PATIENT APPEARS LETHARGIC. ABLE TO OPEN EYES. PATIENT PLACED ON THE TELE MONITOR. SR AT 75. BED IN LOW LOCKED POSITION. CALL LIGHT WITHIN REACH. WILL CONTINUE TO MONITOR.
[2019-10-19] MEDS: ENSURE ENLIVE 237 ML LIQUID (VANILLA) PO SCH ×2 (12:30→17:00)
[2019-10-19] MEDS ORDERED: FUROSEMIDE 40 MG/4 ML VIAL IV ONE (13:00)
[2019-10-19] MEDS ORDERED: ALENDRONATE 70 MG TABLET PO SCH (13:30)
[2019-10-19] MEDS ORDERED: ERGOCALCIFEROL (VITAMIN D 2) 50,000 UNIT CAPSULE PO SCH (13:30)
[2019-10-19] MEDS: CLOTRIMAZOLE 1% 15 GM TUBE TP SCH ×2 (15:25→16:20)
--- NOTE | 2019-10-19 16:00 | NUR ---
ELECTRONIC INDUCTION HARDENER N NOTES PATIENT NOTED WITH BP OF 104/48 PULSE: 84, RESPIRATION 21, O2 SAT: 98 PATIENT APPEARS LETHARGIC ABLE TO OPEN EYES WITH PAINFUL STIMULI. DAUGHTER AT BEDSIDE STATES PATIENT HAS BEEN LETHARGIC SINCE PATIENT HAS BEEN ADMITTED. DR. RODRIGUEZ PAGED WAITING FOR CALL BACK.
[2019-10-19] MEDS: ACETAMINOPHEN 325 MG TABLET PO PRN (16:42)
--- NOTE | 2019-10-19 17:00 | NUR ---
PUMP PRESS OPERATOR NOTES CALL BACK RECEIVED FROM DR. RODRIGUEZ ORDERS FOR STAT CT OF THE HEAD AND STAT ABG. ORDERS NOTED AND CARRIED OUT. PATIENT APPEARS AWAKE BUT CONFUSED.
[2019-10-19 18:26] LABS: ABG BASE EXCESS -0.4 mmol/L; ABG OXYGEN SATURATION 96.9 % (92.0-98.5); ABG PCO2 40.3 mmHg (35.0-45.0); ABG PH 7.399 (7.350-7.450); ABG PO2 98.4 mmHg (75.0-100.0); AaDO2 111.5 mmHg; COHb 0.3 % (0.5-1.5); MetHb 0.5 % (0.0-1.5); O2Hb 96.1 % (94.0-97.0); SITE, ABG Right Radial; VENT MODE, BG NC 36%
--- NOTE | 2019-10-19 19:29 | NUR ---
DIRECTOR PROSPECT NOTES PATIENT IN BED RESTING. ALL DUE MEDICATIONS ADMINISTERED. ALL NEEDS MET. ENDORSED CARE TO PM SHIFT.
--- NOTE | 2019-10-19 19:30 | NUR ---
GUEST RELATIONS OFFICER NOTES, PATIENT IN BED ASLEEP AROUSES TO TACTILE STIMULI, LETHARGIC MORE THAN NORMAL, OPEN EYES SPONTANEOUSLY, AND WHEN CALL BY NAME, MD AWARE, WITH ORDER FOR CT HEAD W/O CONTRAST, WILL F/U, BREATHING EVEN AND UNLABORED, NO SOB/ DISTRESS NOTED, ON 5LPM VIA NC, ON TELE MONITOR. NSR WITH HR 80S-90S AT THIS TIME, BED IN LOW LOCKED POSITION, CALL LIGHT WITHIN REACH, WILL CONTINUE TO MONITOR CLOSELY.
--- NOTE | 2019-10-19 20:00 | NUR ---
RN NOTES, AT 1940 PATIENT TRANSFERRED TO RADIOLOGY TO HAVE CT HEAD W/O CONTRAST, TRANSPORTED WITH ALL ACLS PROTOCOL, AND O2 VIA NC AT 5LMP, NO ABNORMALITIES NOTED, NO CHANGE IN LOC, OR SOB/ACUTE DISTRESS NOTED, TRANSFERRED IN COMPANY OF 2 TECH AND PRIMARY NURSE, PATIENT RETURNED TO UNIT W/O COMPLICATIONS.
--- NOTE | 2019-10-19 20:20 | NUR ---
RN NOTES, PATIENT NOTED WITH BODY TEMP 100.5, COOLING MEASURES INITIATED AND COOL BED BATH GIVEN, AFTER THAT TEMP 98.3F, WILL CONTINUE TO MONITOR CLOSELY.
[2019-10-19] MEDS: ATORVASTATIN 40 MG TABLET PO SCH (21:12)
[2019-10-19] MEDS ORDERED: PIPERACILLIN /TAZOBACTAM 3.375 G VIAL IV ONE (21:27)
[2019-10-20] VITALS: BP 124/67
[2019-10-20 03:10] LABS: CALCIUM, SERUM 8.5 mg/dL (8.5-10.1); CREATININE 0.8 mg/dL (0.6-1.3); POTASSIUM 3.1 mmol/L (3.5-5.1)
[2019-10-20 04:00] VITALS: BP 142/63
[2019-10-20] MEDS: VANCOMYCIN 1 GM in IV D5W 250 ML IV SCH ×2 (04:28→23:03)
[2019-10-20] MEDS: PIPERACILLIN /TAZOBACTAM 3.375 G in IV D5W 100 ML IV SCH ×3 (05:24→21:13)
--- NOTE | 2019-10-20 06:49 | NUR ---
RN NOTES, PATIENT ASLEEP AT THIS TIME, BUT AROUSES EASILY TO VERBAL AND TACTILE STIMULI, PATIENT MORE ALERT THAN LAST NIGHT, ON NC AT 5LPM AT THIS TIME, WITH OPTIMAL O2 SAT LEVEL, NO SOB/ACUTE DISTRESS NOTED AT THIS TIME, AND NO SIGNIFICANT CHANGE IN CONDITION THE REST OF THE NIGHT, LEFT AC IV ACCESS PATENT AND INTACT, NO S/S OF INFILTRATION NOTED, ZOSYN INFUSING AT THIS TIME, PATIENT TOLERATED WELL, BED LOCKED AND LOW POSITION, BILATERAL S/R OF BED IN PLACED, DRY AND CLEAN AND REPOSITIONED Q2HRS AND PRN, CALL LIGHT W/I REACH, WILL ENDORSE CONTINUITY OF CARE TO ONCOMING NURSE
[2019-10-20 08:00] VITALS: BP 151/75
--- NOTE | 2019-10-20 08:00 | NUR ---
RN OPENING NOTES RECEIVED PATIENT RESTING IN BED COMFORTABLY. SHE IS AOX1, SCOTTISH SPEAKING, AND ON BEDREST. WHEN SPEAKING TO HER, SHE IS VERY LETHARGIC AND DOES NOT RESPOND, JUST STARES. SHE IS ON 5L OF OXYGEN VIA NC, TOLERATING WELL, NO S/SX OF RESP DISTRESS OR SOB. RHONCHI HEARD UPON AUSCULTATION, SKIN IS INTACT, SACRAL REDNESS, WILL ROTATE Q2H. SHE IS ON FULL LIQUID DIET, TOLERATING WELL. LHAND 22 G IS PATENT AND INTACT. SAFETY MEASURES HAVE BEEN IMPLEMENTED, CALL LIGHT IS WITHIN REACH, BED IS IN LOWEST AND LOCKED POSITION, SIDE RAILS UP X2, WILL CONTINUE TO MONITOR FOR ANY CHANGES.
--- NOTE | 2019-10-20 08:54 | NUR ---
WOUND CARE CONSULT: PT FOLLOWED BY SURGICAL TEAM FOR WOUND CARE. DEFER TO SURGICAL TEAM FOR WOUND TREATMENT PLAN. WILL SEE PRN. DISCUSSED SKIN PROTECTION WITH NURSING STAFF. FIRST STEP LOW AIRLOSS MATTRESS ON ORDER. CURRENT CELIO SCORE IS 12.
[2019-10-20] MEDS: ENSURE ENLIVE 237 ML LIQUID (VANILLA) PO SCH ×2 (09:00→17:01)
[2019-10-20] MEDS ORDERED: FUROSEMIDE 40 MG/4 ML VIAL IV SCH (09:00)
[2019-10-20] MEDS: MULTIVIT W/MINERALS 1 TAB TABLET PO SCH (09:02)
[2019-10-20] MEDS: GABAPENTIN 100 MG CAPSULE PO SCH (09:03)
[2019-10-20] MEDS: FERROUS SULFATE (325 MG) 325 MG/TAB TABLET PO SCH (09:03)
[2019-10-20] MEDS: DULOXETINE HCL 20 MG CAPSULE.DR PO SCH (09:03)
[2019-10-20] MEDS: METOPROLOL TARTRATE 50 MG TABLET PO SCH ×2 (09:03→21:14)
[2019-10-20] MEDS: AMLODIPINE BESYLATE 2.5 MG TABLET PO SCH (09:03)
[2019-10-20] MEDS: ASCORBIC ACID 500 MG TABLET PO SCH (09:03)
[2019-10-20] MEDS: CLOTRIMAZOLE 1% 15 GM TUBE TP SCH ×2 (09:04→17:01)
[2019-10-20] MEDS: PANTOPRAZOLE 40 MG VIAL IV SCH (09:04)
[2019-10-20] MEDS: DILTIAZEM HCL CD 240 MG PO SCH (09:04)
[2019-10-20] MEDS: PROSOURCE / PROSTAT (PYXIS) 30 ML UDC PO SCH (09:04)
[2019-10-20] MEDS: ACETAMINOPHEN 325 MG TABLET PO PRN ×2 (09:37→18:03)
[2019-10-20] MEDS: ALBUTEROL FS 2.5 MG/3 ML VIAL.NEB NEB PRN (10:22)
[2019-10-20 10:45] LABS: ABG BASE EXCESS 1.2 mmol/L; ABG OXYGEN SATURATION 98.6 % (92.0-98.5); ABG PCO2 50.9 mmHg (35.0-45.0); ABG PH 7.351 (7.350-7.450); ABG PO2 179.7 mmHg (75.0-100.0); COHb 0.3 % (0.5-1.5); MetHb 0.4 % (0.0-1.5); O2Hb 97.9 % (94.0-97.0); SITE, ABG Left Radial; VENT MODE, BG NEB TX 7L 02 MASK
--- NOTE | 2019-10-20 10:59 | NUR ---
PATIENT ON RESPIRATORY DISTRESS,USING ACCESSORY MUSCLE,ABG RESULT RELAYED TO DR. PRICE,DAUGHTER AT BEDSIDE MADE AWARE OF PLAN REGARDING BIPAP AND AGREED WILL KEEP IN FANTA PER CODE STATUS AND PER MD ORDER.
--- NOTE | 2019-10-20 11:05 | NUR ---
RT Pt placed on BiPAP due to increased WOB, pt was diaphoretic, tachypneic, and had subclavicular retractions. Pt is more comfortable at this time on BiPAP, will continue to monitor. Addendum: 10/20/19 at 1123 by ARLEY VOSS RT Amended: Links added.
--- NOTE | 2019-10-20 11:05 | NUR ---
UPDATED DR. VARGAS OF PATIENT'S CONDITION. PT IS ON BIPAP, FAMILY AWARE
--- NOTE | 2019-10-20 11:28 | NUR ---
PATIENT BREATHING IMPROVED,NOT USING ACCESSORY MUSCLE,RR 18,FAMILY AT BEDSIDE,EMOTIONAL SUPPORT GIVEN.
[2019-10-20 12:00] VITALS: BP 123/66
[2019-10-20] MEDS: POTASSIUM CHLORIDE 20 MEQ TAB.PRT.SR PO SCH ×2 (12:08→12:12)
[2019-10-20] MEDS: ALBUTEROL FS 2.5 MG/3 ML VIAL.NEB NEB SCH ×4 (13:08→23:46)
[2019-10-20 16:00] VITALS: BP 122/60
[2019-10-20] MEDS ORDERED: POTASSIUM CHLORIDE 20 MEQ TAB.PRT.SR PO SCH (16:30)
[2019-10-20] MEDS ORDERED: ALBUTEROL HALF STRENGTH 1.25 MG/3 ML VIAL.NEB NEB SCH (16:30)
[2019-10-20] MEDS: SCOPOLAMINE HBR 1 EA PATCH.TD72 TD SCH (17:06)
--- NOTE | 2019-10-20 19:16 | NUR ---
PT PLACED ON BIPAP DUE TO INCREASED WORK OF BREATHING. Q4 BREATHING TX GIVEN. NO ADVERSE REACTION NOTED. BIPAP PLUGGED INTO RED OUTLET. ALARMS ON AND AUDIBLE. WILL CONTINUE TO MONITOR THE PT T/O SHIFT.
--- NOTE | 2019-10-20 19:34 | NUR ---
RN CLOSING PATIENT IS IN BED AT THIS TIME. SHE BEGAN TO HAVE RESP DISTRESS AGAIN, RT PUT HER BACK ON THE BIPAP. SAFETY MEASURES HAVE BEEN IMPLEMENTED, CALL LIGHT IS WITHIN REACH, BED IS IN LOWEST AND LOCKED POSITION, SIDE RAILS UP X2. PT HAS BEEN ENDORSED TO NIGHTSHIFT RN FOR CONTINUITY OF CARE.
--- NOTE | 2019-10-20 19:40 | NUR ---
RN NOTES, PATIENT AWAKE HAVING LABORED BREATHING, WITH STABLE VITAL SIGNS , PATIENT WITH ORDER FOR BIPAP, SHE WAS PUT ON BIPAP DURING THE DAY FOR FEW HOURS, PATIENT PLACED IN BIPAP PER RT AT THIS TIME, FAMILY AT BEDSIDE, SETTINGS PER RT AND TOLERATED WELL AT THIS TIME, HOB ELEVATED ORDERED, WITH STABLE VS AT THIS TIME, AFEBRILE, LEFT AC IV ACCESS PATENT AND INTACT, NO S/S OF INFILTRATION NOTED,BED LOCKED AND LOW POSITION, BILATERAL S/R OF BED IN PLACED, DRY AND CLEAN AND REPOSITIONED AT HIS TIME, CALL LIGHT W/I REACH, WILL CONTINUE TO MONITOR CLOSELY.
[2019-10-20 20:00] VITALS: BP 120/69
--- NOTE | 2019-10-20 20:59 | NUR ---
PT TAKEN OFF BIPAP AT THIS TIME DUE TO PT VOMITED. PLACED ON 5L NC, RINA WATSON. NO RESPIRATORY DISTRESS NOTED AT THIS TIME. WILL CONTINUE TO MONITOR T/O SHIFT.
--- NOTE | 2019-10-20 21:05 | NUR ---
RN NOTES, CALLED DR GAMEZ AND REPORTED PATIENT WITH SMALL AMOUNT OF VOMIT AND PATIENT WAS TAKE OFF FROM BIPAP, NO DISTRESS NOTED, SUCTIONED PATIENT, NO RESIDUAL IN THE MOUTH, PER CONTINUE MONITOR AND IF PATIENT CONTINUE IN DISTRESS, AFEBRILE AT THIS TIME, TO TELL RT PUT PATIENT AGAIN IN BIPAP AND CHECK CHECK THE PRESSURE OF THE BIPAP, NOTED AND CARRIED OUT, [place] RT AWARE, WILLCONTINUE TO MONITOR CLOSELY.
[2019-10-20] MEDS: ATORVASTATIN 40 MG TABLET PO SCH (21:14)
[2019-10-21] VITALS (7 sets, daily range): BP systolic 118–147; BP diastolic 56–73
[2019-10-21] MEDS: ALBUTEROL FS 2.5 MG/3 ML VIAL.NEB NEB SCH ×6 (02:35→23:25)
[2019-10-21] MEDS: PIPERACILLIN /TAZOBACTAM 3.375 G in IV D5W 100 ML IV SCH ×3 (05:30→20:19)
[2019-10-21 06:41] LABS: CALCIUM, SERUM 8.7 mg/dL (8.5-10.1); CREATININE 0.9 mg/dL (0.6-1.3); POTASSIUM 3.3 mmol/L (3.5-5.1)
[2019-10-21 06:47] LABS: BASOPHILS # (AUTO) 0.1 /CMM (0.0-0.2); BASOPHILS % (AUTO) 1.1 % (0.0-2.0); EOSINOPHILS % (AUTO) 2.5 % (0.0-6.0); HEMATOCRIT 32 % (33-45); HEMOGLOBIN 10.4 g/dL (11.5-14.8); LYMPHOCYTES # (AUTO) 1.2 /CMM (0.8-4.8); LYMPHOCYTES % (AUTO) 24.7 % (20.0-44.0); MEAN CORPUSCULAR HGB CONC 33 g/dl (31.0-36.0); MEAN CORPUSCULAR VOLUME 78 fL (82-100); MONOCYTES # (AUTO) 0.8 /CMM (0.1-1.30); MONOCYTES % (AUTO) 15.4 % (2.0-12.0); NEUTROPHILS # (AUTO) 2.8 /CMM (1.8-8.9); NEUTROPHILS % (AUTO) 56.3 % (43.0-81.0); PLATELET COUNT (AUTO) 439 /CMM (150-450); RED BLOOD CELL COUNT(AUTO) 4.11 MIL/uL (4.0-5.2); WHITE BLOOD COUNT (AUTO) 4.9 K/uL (4.3-11.0)
--- NOTE | 2019-10-21 07:00 | NUR ---
RN NOTES, PATIENT IN BED AWAKE AT THIS TIME, MORE ALERT THAN PRIOR NIGHT, ON 5LPM VIA NC, BREATHING EVEN AND UNLABORED, NO SOB/ACUTE DISTRESS NOTED AT THIS TIME, AFEBRILE, NSR IN TELE MONITOR WITH HR IN THE 80S AT THIS TIME, ABOUT ONE HOUR ON BIPAP LAST NIGHT, AFTER THAT NO DISTRESS NOTED AND CONT ON OXYGEN ORDERED, WITH NO SIGNIFICANT CHANGE IN CONDITION THE REST OF THE NIGHT, BED IN LOCKED AND LOW POSITION, DRY AND CLEAN, REPOSITIONED Q2HRS AND PRN, WITH HOB ELEVATED AT ALL TIMES, ON ANTI-ASPIRATION PRECAUTIONS, BILATERAL S/S OF BED UP CALL LIGHT WITHIN REACH, WILL CONTINUE TO MONITOR CLOSELY.
--- NOTE | 2019-10-21 07:15 | NUR ---
FANTA RN OPENING NOTES RECEIVED PT LYING ON BED,AWAKE AND NOTED WITH LETHARGIC.ON TELE HR IS 89 WITH NSR.ON 4LPM O2 VIA NC CONTINUOUSLY,NO SOB AND ACUTE DISTRESS NOTED FOR NOW.IV LINE IS ON LEFT HAND G22,SL AND RIGHT HAND G22,SL/,SITE IS CLEAN,DRY AND INTACT.NO INFILTRATION NOTED.SAFETY IS MAINTAINED AT ALL TIMES,CALL LIGHT IS WITHIN REACH.WILL CONTINUE TO MONITOR THE PT CLOSELY.
[2019-10-21] MEDS: MULTIVIT W/MINERALS 1 TAB TABLET PO SCH (08:28)
[2019-10-21] MEDS: FERROUS SULFATE (325 MG) 325 MG/TAB TABLET PO SCH (08:28)
[2019-10-21] MEDS: ASCORBIC ACID 500 MG TABLET PO SCH (08:28)
[2019-10-21] MEDS: AMLODIPINE BESYLATE 2.5 MG TABLET PO SCH (08:29)
[2019-10-21] MEDS: METOPROLOL TARTRATE 50 MG TABLET PO SCH ×2 (08:29→20:20)
[2019-10-21] MEDS: DULOXETINE HCL 20 MG CAPSULE.DR PO SCH (08:29)
[2019-10-21] MEDS: DILTIAZEM HCL CD 240 MG PO SCH (08:29)
[2019-10-21] MEDS: PROSOURCE / PROSTAT (PYXIS) 30 ML UDC PO SCH (08:30)
[2019-10-21] MEDS: ENSURE ENLIVE 237 ML LIQUID (VANILLA) PO SCH ×2 (09:00→19:01)
[2019-10-21] MEDS: CLOTRIMAZOLE 1% 15 GM TUBE TP SCH ×2 (09:24→16:38)
[2019-10-21 09:30] LABS: ABG BASE EXCESS 5.9 mmol/L; ABG OXYGEN SATURATION 93.6 % (92.0-98.5); ABG PCO2 40.8 mmHg (35.0-45.0); ABG PH 7.482 (7.350-7.450); ABG PO2 68.9 mmHg (75.0-100.0); AaDO2 169.4 mmHg; COHb 0.3 % (0.5-1.5); MetHb 0.5 % (0.0-1.5); O2Hb 92.9 % (94.0-97.0); SITE, ABG Right Radial; VENT MODE, BG 5LNC
[2019-10-21] MEDS ORDERED: POTASSIUM CHLORIDE 20 MEQ TAB.PRT.SR PO SCH (10:30)
--- NOTE | 2019-10-21 10:58 | NUR ---
MOTHER HELPER NOTES POTASSIUM 20MEQ TAB IS NOT ADMINISTERED WE CHANGED TO UV POTASSIUM 20MEQ ONCE.PHARMACIST MADE AWARE.
[2019-10-21] MEDS ORDERED: POTASSIUM CHLORIDE 10 MEQ/50 ML PREMIXED IVPB FOR PERIPHERAL LINE IV ONE (11:00)
[2019-10-21] MEDS ORDERED: POTASSIUM CL. PREMIX PERIPHER. 50 ML IV ONE (11:00)
--- NOTE | 2019-10-21 11:05 | NUR ---
RECORDIST NOTES DR.PRAVEEN CARRENO,PCP MADE TELEPHONE ORDER CHANGE POTASSIUM TABLET TO IV POTASSIUM 20MEQ ONCE AND START ARTIFICIAL TEARS Q2HRS PRN PER FAMILY REQUEST.NEW ORDERS NOTED AND CARRIED OUT.
[2019-10-21] MEDS ORDERED: Potassium Chloride 20 MEQ in IV D5W 1,000 ML IV PRN (11:56)
[2019-10-21] MEDS ORDERED: POTASSIUM CL. PREMIX PERIPHER. 50 ML IV SCH (12:30)
[2019-10-21] MEDS ORDERED: LORAZEPAM INJ 2 MG/ML VIAL IV PRN (15:30)
[2019-10-21] MEDS: VANCOMYCIN 1 GM in IV D5W 250 ML IV SCH (16:37)
[2019-10-21] MEDS: ACETAMINOPHEN 325 MG TABLET PO PRN ×2 (16:59→20:20)
[2019-10-21] MEDS: ERYTHROMYCIN BASE OPHTH 3.5 GM TUBE EACHEYE SCH (18:00)
--- NOTE | 2019-10-21 18:59 | NUR ---
TECHNICAL ANALYST CLOSING NOTES PT IS LYING ON BED.FAMILY IS AT BEDSIDE.,ON NC 5LPM O2 ,TOLERATING WELL.RESPIRATION IS EVEN AND NONLABORED.IV LINE IS IN PLACE.NO SIGNIFICANT CHANGES NOTED IN THE SHIFT.WILL ENDORSE TO WASTEWATER OPERATOR RN FOR YARA. Addendum: 10/21/19 at 1902 by MEÑO MARTÍNEZ RN WILL ENDORSE TO WASTEWATER OPERATOR RN TO GIVE EYE OINTMENT ERYTHROMYCIN IT WILL DELAY FROM THE PHARMACY TO DELIVER PER PHARMACIST.
--- NOTE | 2019-10-21 19:30 | NUR ---
PUPIL PERSONNEL WORKER OPENING NOTE RECIEVED PATIENT IN BED. PATIENT IS VERY LETHARGIC, FAROESE SPEAKING, ON OXYGEN 5L/MIN VIA NASAL CANNULA. NO S/S SOB NOTED. NO MANIFESTATIONS OF PAIN AT THIS TIME. EXTERNAL TELE MONITOR READS SR ST WITH PVC. IN NO APPARENT DISTRESS. IV ACCESS IN R HAND #22 SL AND L HAND #22 SL. BED IS LOW AN DLOCKED, SIDE RAILS UP X2, HOB ELEVATED 50 DEGREED, BED ALARM ON. FAMILY AT BEDSIDE. CALL LIGHT WITHIN REACH. WILL CONTINUE TO MONITOR.
--- NOTE | 2019-10-21 20:20 | NUR ---
RETAIL PARTS PRO NOTE ADMINISTERED PRN TYLENOL 650 MG D/T TEMP 100.4. WILL CONTINUE TO MONITOR.
[2019-10-21] MEDS: ATORVASTATIN 40 MG TABLET PO SCH (21:49)
--- NOTE | 2019-10-21 21:56 | NUR ---
COAL BAGGER NOTE ADMINISTERED PRN ATIVAN 0.5MG D/T PATIENT BEING AGGITATED AND SLIDING DOWN AND RESTLESS. WILL CONTINUE TO MONITOR.
[2019-10-22] VITALS (7 sets, daily range): BP systolic 108–134; BP diastolic 43–67
[2019-10-22] MEDS: ERYTHROMYCIN BASE OPHTH 3.5 GM TUBE EACHEYE SCH ×4 (00:08→17:23)
--- NOTE | 2019-10-22 03:03 | NUR ---
TRIMMING PRESS OPERATOR NOTE DID NOT ADMINISTERED LORAZEPAM 0.5MG D/T PATIENT BP WAS LOW. CONTINUED TO MONITOR AND PATIENT DECREASED AGITATION. WASTED MEDICATION WITH PEGGY RN, DISPOSED IN MED ROOM WASTE BIN (WASTED AND UNUSED ATIVAN)
[2019-10-22] MEDS: ALBUTEROL FS 2.5 MG/3 ML VIAL.NEB NEB SCH ×6 (03:28→23:08)
[2019-10-22] MEDS: PIPERACILLIN /TAZOBACTAM 3.375 G in IV D5W 100 ML IV SCH ×3 (04:58→22:33)
[2019-10-22 06:31] LABS: BASOPHILS # (AUTO) 0.1 /CMM (0.0-0.2); BASOPHILS % (AUTO) 1.1 % (0.0-2.0); EOSINOPHILS % (AUTO) 5.3 % (0.0-6.0); HEMATOCRIT 34 % (33-45); HEMOGLOBIN 10.8 g/dL (11.5-14.8); LYMPHOCYTES # (AUTO) 1.1 /CMM (0.8-4.8); LYMPHOCYTES % (AUTO) 20.1 % (20.0-44.0); MEAN CORPUSCULAR HGB CONC 32 g/dl (31.0-36.0); MEAN CORPUSCULAR VOLUME 79 fL (82-100); MONOCYTES # (AUTO) 0.8 /CMM (0.1-1.30); MONOCYTES % (AUTO) 14.6 % (2.0-12.0); NEUTROPHILS # (AUTO) 3.3 /CMM (1.8-8.9); NEUTROPHILS % (AUTO) 58.9 % (43.0-81.0); PLATELET COUNT (AUTO) 413 /CMM (150-450); RED BLOOD CELL COUNT(AUTO) 4.27 MIL/uL (4.0-5.2); WHITE BLOOD COUNT (AUTO) 5.6 K/uL (4.3-11.0)
[2019-10-22 06:48] LABS: CALCIUM, SERUM 8.9 mg/dL (8.5-10.1); POTASSIUM 4.1 mmol/L (3.5-5.1)
--- NOTE | 2019-10-22 07:15 | NUR ---
FISH BAIT PROCESSING SUPERVISOR OPENING NOTES RECEIVED PT LYING ON BED,AWAKE AND NOTED WITH ANXIETY.ON TELE HR IS 80 WITH NSR.ON 5LPM O2 VIA NC CONTINUOUSLY,NO SOB AND ACUTE DISTRESS NOTED FOR NOW.IV LINE IS ON RIGHT HAND G22,IV POTASSIUM IS RUNNING @50CC/HR,SITE IS CLEAN,DRY AND INTACT.HOB ELEVATED TO 45 DEGREE.NO INFILTRATION NOTED.SAFETY IS MAINTAINED AT ALL TIMES,CALL LIGHT IS WITHIN REACH.WILL CONTINUE TO MONITOR THE PT CLOSELY.
--- NOTE | 2019-10-22 07:37 | NUR ---
MAGNETIC TAPE COMPOSER OPERATOR CLOSING NOTE PATIENT IN BED. PATIENT REMAINS LETHARGIC, BAHRAINI SPEAKING, ON OXYGEN 5L/MIN VIA NASAL CANNULA. NO SOB NOTED. NO MANIFESTATIONS OF PAIN. EXTERNAL TELE MONITOR READS SR ST WITH PVC. NO DISTRESS NOTED. IV ACCESS MAINTAINED IN R HAND #22 SL. BED IS LOW AN DLOCKED, SIDE RAILS UP X2, HOB ELEVATED 50 DEGREED, [employer] MATRESS BED ALARM ON. CALL LIGHT WITHIN REACH. WILL ENDORSE TO NEXT SHIFT
[2019-10-22] MEDS: PROSOURCE / PROSTAT (PYXIS) 30 ML UDC PO SCH (09:00)
[2019-10-22] MEDS: AMLODIPINE BESYLATE 2.5 MG TABLET PO SCH (09:00)
[2019-10-22] MEDS: FERROUS SULFATE (325 MG) 325 MG/TAB TABLET PO SCH (09:01)
[2019-10-22] MEDS: DULOXETINE HCL 20 MG CAPSULE.DR PO SCH (09:01)
[2019-10-22] MEDS: MULTIVIT W/MINERALS 1 TAB TABLET PO SCH (09:01)
[2019-10-22] MEDS: DILTIAZEM HCL CD 240 MG PO SCH (09:01)
[2019-10-22] MEDS: ASCORBIC ACID 500 MG TABLET PO SCH (09:01)
[2019-10-22] MEDS: METOPROLOL TARTRATE 50 MG TABLET PO SCH ×2 (09:01→21:00)
[2019-10-22] MEDS: VANCOMYCIN 1 GM in IV D5W 250 ML IV SCH (09:02)
[2019-10-22] MEDS: CLOTRIMAZOLE 1% 15 GM TUBE TP SCH ×2 (09:02→17:23)
[2019-10-22] MEDS: ENSURE ENLIVE 237 ML LIQUID (VANILLA) PO SCH ×2 (09:18→18:26)
[2019-10-22] MEDS: ACETAMINOPHEN 325 MG TABLET PO PRN (12:20)
[2019-10-22] MEDS ORDERED: IV D5W 1,000 ML IV PRN (14:30)
--- NOTE | 2019-10-22 16:25 | NUR ---
HOSE TESTER NOTES DR.SAM BAKER D/C IV D5W BECAUSE PT HAS ALREADY ON IV POTASSIUM IN D5W.
--- NOTE | 2019-10-22 18:49 | NUR ---
FISH AND GAME WARDEN CLOSING NOTES PT IS LYING ON BED WITH NC 5LPM O2 VIA NC.FAMILY IS AT BEDSIDE.RESPIRATION IS EVEN AND NONLABORED.NO SIGNIFICANT CHANGES NOTED IN THE SHIFT.WILL ENDORSE TO YARN BLEACHING MACHINE OPERATOR RN FOR YARA.
--- NOTE | 2019-10-22 19:48 | NUR ---
RN OPENING NOTES RECEIVED REPORT FROM DAYSHIFT RINA WILDER. FOUND Pt ASLEEP, RESTING IN BED, NO S/S OF ACUTE DISTRESS OR SOB NOTED. DAUGHTER VISITING AT BEDSIDE. Pt IS [place] SPEAKING ONLY WITH BASELINE DEMENTIA, AND DOES NOT SPEAK OFTEN; ONLY SAYS DAUGHTER's NAME. IV ACCESS ON RHAND #22G, SL.ON TELE MONITOR, WITH TELE READING SR84. SAFETY MEASURES IN PLACE. BED LOW, LOCKED, HOB ELEVATED, SIDE RAILS UP, CALL LIGHT AND BEDSIDE TABLE WITHIN REACH. BED ALARM ON. WILL CONTINUE TO MONITOR Pt's CONDITION AND SAFETY THROUGHOUT THE NIGHT.
[2019-10-22] MEDS: ATORVASTATIN 40 MG TABLET PO SCH (22:33)
[2019-10-23] VITALS: BP 140/67
[2019-10-23] MEDS: ERYTHROMYCIN BASE OPHTH 3.5 GM TUBE EACHEYE SCH ×4 (01:17→18:08)
[2019-10-23] MEDS: ALBUTEROL FS 2.5 MG/3 ML VIAL.NEB NEB SCH ×5 (03:09→19:53)
[2019-10-23] MEDS: VANCOMYCIN 1 GM in IV D5W 250 ML IV SCH ×2 (03:13→21:59)
[2019-10-23 04:00] VITALS: BP 103/47
[2019-10-23] MEDS: PIPERACILLIN /TAZOBACTAM 3.375 G in IV D5W 100 ML IV SCH ×3 (04:30→20:13)
[2019-10-23 07:02] LABS: CALCIUM, SERUM 8.6 mg/dL (8.5-10.1)
--- NOTE | 2019-10-23 07:41 | NUR ---
RN CLOSING NOTES NO SIGNIFICANT CHANGES IN Pt's CONDITION. ALL NEEDS MET AND ATTENDED TO. Pt IS ASLEEP, RESTING IN BED. NO S/S OF ACUTE DISTRESS OR SOB NOTED DURING THE NIGHT. SAFETY MEASURES IN PLACE. WILL ENDORSE TO DAYSHIFT RN FOR Pt's YARA.
--- NOTE | 2019-10-23 07:41 | NUR ---
BESSEMER CONVERTER OPERATOR OPENING NOTES RECEIVED PT LYING ON BED, SLEEPING, OPENS EYES WHEN CALLED BY NAME. A/OX1. ON TELE MONITOR SR HR IS 88. ON 5LPM O2 VIA NC CONTINUOUSLY WITH COOL AEROSOL, NO SOB AND ACUTE DISTRESS NOTED AT THIS TIME. IV LINE IS ON RIGHT HAND G22, IV POTASSIUM IS RUNNING @50CC/HR,SITE IS CLEAN,DRY AND INTACT. NO INFILTRATION NOTED. HOB ELEVATED TO 45 DEGREE. SAFETY IS MAINTAINED, BED LOCKED AND LOW, SIDE RAILS UP X3, CALL LIGHT IS WITHIN REACH. WILL CONTINUE TO MONITOR THE PT CLOSELY.
[2019-10-23 08:00] VITALS: BP 102/64
[2019-10-23] MEDS: MULTIVIT W/MINERALS 1 TAB TABLET PO SCH (08:36)
[2019-10-23] MEDS: DILTIAZEM HCL CD 240 MG PO SCH (08:37)
[2019-10-23] MEDS: ASCORBIC ACID 500 MG TABLET PO SCH (08:37)
[2019-10-23] MEDS: METOPROLOL TARTRATE 50 MG TABLET PO SCH ×2 (08:38→21:11)
[2019-10-23] MEDS: DULOXETINE HCL 20 MG CAPSULE.DR PO SCH (08:38)
[2019-10-23] MEDS: FERROUS SULFATE (325 MG) 325 MG/TAB TABLET PO SCH (08:38)
[2019-10-23] MEDS: AMLODIPINE BESYLATE 2.5 MG TABLET PO SCH (08:39)
[2019-10-23] MEDS: PROSOURCE / PROSTAT (PYXIS) 30 ML UDC PO SCH (08:39)
[2019-10-23] MEDS: ENSURE ENLIVE 237 ML LIQUID (VANILLA) PO SCH ×2 (08:40→17:31)
[2019-10-23] MEDS: CLOTRIMAZOLE 1% 15 GM TUBE TP SCH ×2 (08:40→17:31)
[2019-10-23 12:00] VITALS: BP 110/72
[2019-10-23] MEDS: methylPREDNISolone SOD SUCC 40 MG/ML VIAL IV SCH ×2 (15:30→17:31)
[2019-10-23 16:00] VITALS: BP 120/68
[2019-10-23] MEDS: ACETAMINOPHEN 325 MG TABLET PO PRN (17:29)
[2019-10-23] MEDS: POLYVINYL ALCOHOL 15 ML BOTTLE EACHEYE PRN (17:29)
[2019-10-23] MEDS: SCOPOLAMINE HBR 1 EA PATCH.TD72 TD SCH (17:30)
--- NOTE | 2019-10-23 19:00 | NUR ---
RN OPENING NOTES: PATIENT ASLEEP BUT EASILY AWAKENED. NO RESPIRATORY DISTRESS. NO PAIN. ON ELECTRICIAN UNDERGROUND SHOWING SR, HR 92. (R) HAND G22 INTACT, PATENT, AND FLUSHING WELL. SAFETY PRECAUTIONS IMPLEMENTED. BED LOCKED AND IN LOWEST POSITION. CALL LIGHT WITHIN REACH. WILL CONT. TO MONITOR.
--- NOTE | 2019-10-23 19:35 | NUR ---
MS RN CLOSING NOTE NO SIGNIFICANT CHANGE DURING THE SHIFT. ALL NEEDS ATTENDED. ON TELE MONITOR SR HR 84. NO SIGN OF RESPIRATORY/CARDIAC DISTRESS OR SOB AT THIS TIME. BED LOCKED AND LOW, SIRE RAILS UP X2, BED ALARM ON, CALL LIGHT IN REACH. HOB ELEVATED 40 DEGREE. ENDORSED TO PM NURSE FOR YARA.
[2019-10-23 20:00] VITALS: BP 117/55
[2019-10-23] MEDS: ATORVASTATIN 40 MG TABLET PO SCH (21:12)
--- NOTE | 2019-10-23 21:59 | NUR ---
RN NOTE: VANCO TROUGH LEVEL 21. DOSE NOT ADMINISTERED ORDERED.
[2019-10-24] VITALS: BP 105/63
[2019-10-24] MEDS: ERYTHROMYCIN BASE OPHTH 3.5 GM TUBE EACHEYE SCH ×3 (00:07→12:16)
[2019-10-24] MEDS: ALBUTEROL FS 2.5 MG/3 ML VIAL.NEB NEB SCH ×5 (00:31→16:21)
[2019-10-24 04:00] VITALS: BP 115/64
[2019-10-24] MEDS: PIPERACILLIN /TAZOBACTAM 3.375 G in IV D5W 100 ML IV SCH ×2 (05:03→12:46)
--- NOTE | 2019-10-24 06:20 | NUR ---
RN NOTE: IV ACCESS ON (R) HAND LEAKING. INSERTED A NEW IV SITE ON (L) HAND #24. INTACT, PATENT, AND FLUSHING WELL. PATIENT TOLERATED PROCEDURE WELL.
[2019-10-24 07:09] LABS: BASOPHILS % (AUTO) 0.4 % (0.0-2.0); EOSINOPHILS % (AUTO) 0.1 % (0.0-6.0); HEMATOCRIT 35 % (33-45); HEMOGLOBIN 11.2 g/dL (11.5-14.8); LYMPHOCYTES # (AUTO) 0.8 /CMM (0.8-4.8); LYMPHOCYTES % (AUTO) 11.8 % (20.0-44.0); MEAN CORPUSCULAR HGB CONC 32 g/dl (31.0-36.0); MEAN CORPUSCULAR VOLUME 78 fL (82-100); MONOCYTES # (AUTO) 0.2 /CMM (0.1-1.30); MONOCYTES % (AUTO) 3.4 % (2.0-12.0); NEUTROPHILS # (AUTO) 5.6 /CMM (1.8-8.9); NEUTROPHILS % (AUTO) 84.3 % (43.0-81.0); PLATELET COUNT (AUTO) 564 /CMM (150-450); RED BLOOD CELL COUNT(AUTO) 4.51 MIL/uL (4.0-5.2); WHITE BLOOD COUNT (AUTO) 6.6 K/uL (4.3-11.0)
--- NOTE | 2019-10-24 07:30 | NUR ---
RN CLOSING NOTES: PATIENT IN STABLE CONDITION AT THIS TIME. IN NO ACUTE DISTRESS. BEDSIDE REPORT GIVEN TO AM SHIFT NURSE FOR YARA.
--- NOTE | 2019-10-24 07:30 | NUR ---
PROJECT MANAGER/DESIGN MANAGER OPENING NOTES RECEIVED PT LYING ON BED, SLEEPING, OPENS EYES WHEN CALLED BY NAME. A/OX2. ON TELE MONITOR SR HR IS 82. ON 2LPM O2 VIA NC CONTINUOUSLY WITH COOL AEROSOL, NO SOB AND ACUTE DISTRESS NOTED AT THIS TIME. IV LINE IS ON LEFT HAND G24, SL, INTACT AND FLUSHED WELL. NO INFILTRATION NOTED. HOB ELEVATED TO 45 DEGREE. SAFETY IS MAINTAINED, BED LOCKED AND LOW, SIDE RAILS UP X3, CALL LIGHT IS WITHIN REACH. WILL CONTINUE TO MONITOR THE PT CLOSELY.
--- NOTE | 2019-10-24 07:32 | NUR ---
PATIENT FOUND IN RESPIRATORY DISTRESS. RT PAGED.
[2019-10-24 08:00] VITALS: BP 161/81
[2019-10-24 08:03] LABS: MAGNESIUM 2.6 mg/dL (1.8-2.4); PHOSPHORUS 3.9 mg/dL (2.5-4.9); POTASSIUM 4.4 mmol/L (3.5-5.1)
[2019-10-24] MEDS: METOPROLOL TARTRATE 50 MG TABLET PO SCH (09:45)
[2019-10-24] MEDS: DULOXETINE HCL 20 MG CAPSULE.DR PO SCH (09:45)
[2019-10-24] MEDS: methylPREDNISolone SOD SUCC 40 MG/ML VIAL IV SCH (09:45)
[2019-10-24] MEDS: ASCORBIC ACID 500 MG TABLET PO SCH (09:45)
[2019-10-24] MEDS: FERROUS SULFATE (325 MG) 325 MG/TAB TABLET PO SCH (09:45)
[2019-10-24] MEDS: MULTIVIT W/MINERALS 1 TAB TABLET PO SCH (09:46)
[2019-10-24] MEDS: DILTIAZEM HCL CD 240 MG PO SCH (09:46)
[2019-10-24] MEDS: PROSOURCE / PROSTAT (PYXIS) 30 ML UDC PO SCH (09:47)
[2019-10-24] MEDS: ENSURE ENLIVE 237 ML LIQUID (VANILLA) PO SCH ×2 (09:47→17:23)
[2019-10-24] MEDS: POLYVINYL ALCOHOL 15 ML BOTTLE EACHEYE PRN ×2 (09:47→17:23)
[2019-10-24] MEDS: AMLODIPINE BESYLATE 2.5 MG TABLET PO SCH (09:47)
[2019-10-24] MEDS: CLOTRIMAZOLE 1% 15 GM TUBE TP SCH ×2 (09:48→17:23)
[2019-10-24] MEDS ORDERED: methylPREDNISolone SOD SUCC 40 MG/ML VIAL IV SCH (11:00)
[2019-10-24] MEDS: ACETAMINOPHEN 325 MG TABLET PO PRN (11:16)
[2019-10-24 12:00] VITALS: BP 143/61
[2019-10-24] MEDS ORDERED: VANCOMYCIN 1 GM in IV D5W 250 ML IV SCH (16:00)
--- NOTE | 2019-10-24 16:30 | NUR ---
VANCO TROUGH 21 ON 10/23/19. PHARMACY CONFORMED TO GIVE VANCO TODAY 10/24/19.
--- NOTE | 2019-10-24 18:17 | NUR ---
PATIENT DISCHARGED TO SNF. STABLE UPON DISCHARGE. ACETAMINOPHEN 650 MG GIVEN BEFORE TRANSFER.
[2019-11-29] MEDS ORDERED: LEVO500T75 PO (10:14)
[2019-11-29] MEDS ORDERED: FLUC100T8 PO (10:14)
== END 2019-10-24 18:49 | DRG 871 ==
LOC: ER 21:19 → TELE 23:52 → MED 10-18 12:44 → ICU 10-18 19:52 → TELE1 10-19 11:14 → TELE-TD 10-20 10:58 → TELE1 10-21 10:07
PROVIDERS: ADMIT Student in an Organized Health Care Education/Training Program
DX: A41.9 Sepsis, unspecified organism (principal); E43 Unspecified severe protein-calorie malnutrition; R53.2 Functional quadriplegia; G92 Toxic encephalopathy; J15.6 Pneumonia due to other Gram-negative bacteria; J96.02 Acute respiratory failure with hypercapnia; J96.01 Acute respiratory failure with hypoxia; S42.202A Unspecified fracture of upper end of left humerus, initial encounter for closed fracture; N39.0 Urinary tract infection, site not specified; D68.59 Other primary thrombophilia; E87.0 Hyperosmolality and hypernatremia; J98.11 Atelectasis; J90 Pleural effusion, not elsewhere classified; J81.1 Chronic pulmonary edema; G30.9 Alzheimer's disease, unspecified; E86.0 Dehydration; Z66 Do not resuscitate; D63.8 Anemia in other chronic diseases classified elsewhere; E78.5 Hyperlipidemia, unspecified; E87.6 Hypokalemia; F02.80 Dementia in other diseases classified elsewhere, unspecified severity, without behavioral disturbance, psychotic disturbance, mood disturbance, and anxiety; F32.9 Major depressive disorder, single episode, unspecified; F41.9 Anxiety disorder, unspecified; G62.9 Polyneuropathy, unspecified; I25.10 Atherosclerotic heart disease of native coronary artery without angina pectoris; Z95.5 Presence of coronary angioplasty implant and graft; Z90.710 Acquired absence of both cervix and uterus; Z79.899 Other long term (current) drug therapy; X58.XXXA Exposure to other specified factors, initial encounter; Y92.9 Unspecified place or not applicable; Z96.642 Presence of left artificial hip joint; I10 Essential (primary) hypertension; Y95 Nosocomial condition; L30.4 Erythema intertrigo; I48.0 Paroxysmal atrial fibrillation
CPT/HCPCS: 36415; 36600; 70450-TC; 71045-TC; 80048-TC; 80076-TC; 80202-TC; 81000-TC; 82803-TC; 82962-TC; 83605-TC; 83735-TC; 83880; 84100-TC; 84443-TC; 84484-TC; 85025-TC; 87040-TC; 87081-TC; 87086-TC; 87186-TC; 92521; 93307-TC; 94760-TC; 94762-TC; 94799-TC; 97112-TC; 97530-TC; C9113; G0378; J1940; J2060; J2543; J2920; J3370; J3480; J7030; J7040; J7050; J7060; J7070

== ENCOUNTER 2019-11-25 16:04 | Inpatient (IN) | payer MEDICARE, MEDICAID ==
[~2019-11-25] VITALS: Ht 160 cm; Wt 54.4 kg
[~2019-11-25 16:04] MED LIST changes: +ALEN70TA3 PO; +AMIN30LI2 PO; +ASCO500T9 PO; -DILT-3 PO; +DILT-4 PO; -ENOX40DI SQ; +ERGO500014 PO; +FERR325T23 PO; +IBUP-1955 PO; -LEVO750T21 PO; +MULT-447 PO; +NA P133E RC; +OMEP40CA13 PO; +SACC250C PO; +TRAM50TA2 PO
--- NOTE | 2019-11-25 16:10 | NUR ---
, from snf, altered than usual. Patient non-verbal at this time. Breathing even and unlabored, no sob noted. Attached to the nurse monitoring. No distress noted.
[2019-11-25] MEDS ORDERED: CEFT1VIA15 IV (16:29)
[2019-11-25] MEDS ORDERED: SCOP1PAT11 TD (16:29)
[2019-11-25] MEDS ORDERED: PRED20TA PO (16:29)
[2019-11-25] MEDS ORDERED: POLY15DR40 EACHEYE (16:29)
[2019-11-25] MEDS ORDERED: ALBU1.257 IH (16:29)
[2019-11-25] MEDS ORDERED: CIPR2.5D RIGHTEYE (16:29)
[2019-11-25] MEDS ORDERED: [UNRECOGNIZED DRUG - CODE] IV (16:29)
[2019-11-25] MEDS ORDERED: IV NS 0.9% 1,000 ML BAG IV ONE (16:30)
[2019-11-25] MEDS ORDERED: VANCOMYCIN 1 GM in IV D5W 250 ML IV ONE (16:30)
[2019-11-25] MEDS ORDERED: PIPERACILLIN /TAZOBACTAM 3.375 G in IV D5W 50 ML IV ONE (16:30)
[2019-11-25] MEDS ORDERED: IV NS 0.9% 500 ML IV ONE (16:30)
[2019-11-25 16:39] LABS: BASOPHILS # (AUTO) 0.1 /CMM (0.0-0.2); BASOPHILS % (AUTO) 0.3 % (0.0-2.0); EOSINOPHILS % (AUTO) 0.6 % (0.0-6.0); HEMATOCRIT 42 % (33-45); HEMOGLOBIN 13.3 g/dL (11.5-14.8); LYMPHOCYTES % (AUTO) 5.4 % (20.0-44.0); MEAN CORPUSCULAR HGB CONC 32 g/dl (31.0-36.0); MEAN CORPUSCULAR VOLUME 84 fL (82-100); MONOCYTES # (AUTO) 0.5 /CMM (0.1-1.30); MONOCYTES % (AUTO) 2.7 % (2.0-12.0); NEUTROPHILS # (AUTO) 17.3 /CMM (1.8-8.9); PLATELET COUNT (AUTO) 346 /CMM (150-450); RED BLOOD CELL COUNT(AUTO) 5.04 MIL/uL (4.0-5.2)
[2019-11-25 16:48] LABS: APPEARANCE,URINE Cloudy (CLEAR); BILIRUBIN,URINE Negative (NEGATIVE); BLOOD, URINE Trace-intact Ery/uL (NEGATIVE); COLOR,URINE Yellow (YELLOW); KETONES,URINE Negative (NEGATIVE); LEUKOCYTE ESTERASE ,URINE Trace (NEGATIVE); NITRITE, URINE Negative (NEGATIVE); PROTEIN,URINE Trace mg/dl (NEGATIVE); UGLUCOSE Negative (NEGATIVE); UROBILINOGEN,URINE 0.2 EU/dL (0.2)
[2019-11-25 16:59] LABS: BACTERIA,URINE 1+ /HPF (None Seen); SQUAMOUS EPITHELIAL CELL,UR Moderate /HPF (None Seen); YEAST,URINE Many /HPF (None Seen)
--- NOTE | 2019-11-25 17:10 | NUR ---
CATHRYN CHEEK CONTACT # [phone]
[2019-11-25 17:15] LABS: ALANINE AMINOTRANSFERASE 97 U/L (12-78); ALBUMIN 2.7 g/dL (3.4-5.0); ALKALINE PHOSPHATASE 63 U/L (46-116); ASPARTATE AMINOTRANSFERASE 39 U/L (15-37); BILIRUBIN,DIRECT 0.1 mg/dL (0.0-0.2); BILIRUBIN,TOTAL 0.6 mg/dL (0.2-1.0); CALCIUM, SERUM 8.8 mg/dL (8.5-10.1); CARBON DIOXIDE 28 mmol/L (21-32); CHLORIDE 110 mmol/L (98-107); CREATININE 1.2 mg/dL (0.6-1.3); GLUCOSE 218 mg/dL (74-106); POTASSIUM 4.6 mmol/L (3.5-5.1); SODIUM SERUM 147 mmol/L (136-145); TOTAL PROTEIN, SERUM 6.9 g/dL (6.4-8.2); UREA NITROGEN, BLOOD 33 mg/dL (7-18)
[2019-11-25] MEDS ORDERED: ACETAMINOPHEN 650 MG/SUPP.RECT RC ONE ×2 (17:42→18:00)
--- NOTE | 2019-11-25 18:59 | NUR ---
ROOM GIVEN 116-1 GIVE REPORT AFTER 1930H PER HOUSE SUP.
[2019-11-25] MEDS ORDERED: ONDANSETRON HCL/PF 4 MG/2 ML VIAL IVP PRN (19:00)
[2019-11-25] MEDS ORDERED: MAG HYDROX/AL HYDROX/SIMETH 30 ML UDC PO PRN (19:00)
[2019-11-25] MEDS ORDERED: ACETAMINOPHEN 325 MG TABLET PO PRN (19:00)
[2019-11-25] MEDS ORDERED: NA PHOS,M-B/NA PHOS,DI-BA 1 EA ENEMA RC PRN (19:00)
[2019-11-25] MEDS ORDERED: MAGNESIUM HYDROXIDE 30 ML UDC PO PRN ×2 (19:00)
[2019-11-25] MEDS ORDERED: Z GUARD REMEDY 2 OZ OINT TP PRN (19:00)
--- NOTE | 2019-11-25 19:43 | NUR ---
REPORT GIVEN TO RINA CASTREJON FOR YARA
[2019-11-25 20:00] VITALS: BP_SYST 107; BP_SYST 145; BP_DIAS 56; BP_DIAS 92
--- NOTE | 2019-11-25 20:00 | NUR ---
ADMITTED PATIENT FROM ER,EYES OPEN BUT VERY PASSIVE,NON VERBAL, AWAKE(EYES OPEN) BUT JUST STARES BLANKLY ,NO OTHER EXPRESSION,NOT IN ANY DISTRESS,WITH REGULR ,SHALOOW RESPIRATION,WITH O2 VIA NASAL CANNULA.AFEBRILE AT THIS TIME.KEPT CLEAN AND COMFORTABLE. PATIENT FROM SNF WHO WAS NOTED TO HAVE ALTERED MENTAL STATUS( PER DAUGHTER,PATIENT 'S BASELINE IS NONVERBAL BUT ABLE TO FOLLOW SIMPLE COMMANDS. .IN ER WBC=19,LACTIC AID=2.3,WAS GIVEN 1.5 l FLUID AND GIVEN ZOSYN AND VANCOMYCIN.
[2019-11-25] MEDS: IV 1/2NS 1000 ML 1,000 ML IV PRN (20:51)
[2019-11-25] MEDS: ATORVASTATIN 40 MG TABLET PO SCH (22:00)
[2019-11-25] MEDS: PROSOURCE / PROSTAT (PYXIS) 30 ML UDC PO SCH (22:00)
--- NOTE | 2019-11-25 22:00 | NUR ---
DID NOT GIVE PO MEDS ,PATIENT TOO LETHARGIC TO HAVE PO INTAKE,WILL NEED FIRST SWALLOW EVALUATION.WILL ASK FOR SWALLOW EVALUATION ORDER.
[2019-11-26] VITALS: BP 104/62
--- NOTE | 2019-11-26 | NUR ---
STATUS UNCHANGED,RESPOND TO NAME CALLING BY OPENING EYES BUT STILL NO VERBAL RESPONSE.REMAINS AFEBRILE,NOT IN ANY DISTRESS.
[2019-11-26] MEDS ORDERED: PIPERACILLIN /TAZOBACTAM 2.25 G VIAL IV ONE ×2 (00:16→05:53)
[2019-11-26] MEDS: PIPERACILLIN /TAZOBACTAM 2.25 G in IV D5W 50 ML IV SCH ×5 (00:32→23:27)
[2019-11-26 04:00] VITALS: BP 121/75
--- NOTE | 2019-11-26 04:00 | NUR ---
REMAINS LETHARGIC EASILY AWAKENS,STILL NOT MUCH RESPONSE.MADE COMFORTABLE,NOT IN ANY DISTRESS.
[2019-11-26] MEDS: IV 1/2NS 1000 ML 1,000 ML IV PRN ×2 (06:01→20:34)
[2019-11-26] MEDS ORDERED: POLYVINYL ALCOHOL 15 ML BOTTLE OP PRN (06:30)
[2019-11-26 06:41] LABS: BASOPHILS % (AUTO) 0.4 % (0.0-2.0); EOSINOPHILS % (AUTO) 1.4 % (0.0-6.0); HEMATOCRIT 35 % (33-45); HEMOGLOBIN 11.2 g/dL (11.5-14.8); LYMPHOCYTES # (AUTO) 0.9 /CMM (0.8-4.8); LYMPHOCYTES % (AUTO) 12.5 % (20.0-44.0); MEAN CORPUSCULAR HGB CONC 32 g/dl (31.0-36.0); MEAN CORPUSCULAR VOLUME 84 fL (82-100); MONOCYTES # (AUTO) 0.6 /CMM (0.1-1.30); MONOCYTES % (AUTO) 8.2 % (2.0-12.0); NEUTROPHILS # (AUTO) 5.3 /CMM (1.8-8.9); NEUTROPHILS % (AUTO) 77.5 % (43.0-81.0); PLATELET COUNT (AUTO) 201 /CMM (150-450); RED BLOOD CELL COUNT(AUTO) 4.13 MIL/uL (4.0-5.2); WHITE BLOOD COUNT (AUTO) 6.9 K/uL (4.3-11.0)
[2019-11-26] MEDS ORDERED: FEE PK DOSING 1 MIN EA MC ONE (06:53)
--- NOTE | 2019-11-26 07:00 | NUR ---
STATUS UNCHANGED,STABLE,NOT IN ANY DISTRESS.ENDORSED AND REPORT GIVEN TO NADIA FLYNN.
[2019-11-26 07:34] LABS: CALCIUM, SERUM 7.8 mg/dL (8.5-10.1); MAGNESIUM 2.4 mg/dL (1.8-2.4); PHOSPHORUS 3.2 mg/dL (2.5-4.9); POTASSIUM 3.8 mmol/L (3.5-5.1)
[2019-11-26 08:00] VITALS: BP 119/69
[2019-11-26] MEDS: FERROUS SULFATE (325 MG) 325 MG/TAB TABLET PO SCH ×3 (08:14→09:00)
[2019-11-26] MEDS: ASCORBIC ACID 500 MG TABLET PO SCH ×3 (08:14→09:00)
[2019-11-26] MEDS: MULTIVIT W/MINERALS 1 TAB TABLET PO SCH ×3 (08:14→09:00)
--- NOTE | 2019-11-26 08:45 | NUR ---
FATNA RN Note Patient is lethargic, opens eyes then closes them, nonverbal, does not follow command or open mouth when prompted. Reportedly Bahamian speaking, asked medical secretary receptionist to translate, no verbal response. PO meds not given this morning due to status. Breakfast not eaten. Tele monitor attached, sinus rhythm 109 w/ PACs. 3L O2 via NC, no SOB or distress noted. L wrist 18G infusing 1/2 NS @100mL/hr. Vitals stable. Bed alarm on. Will cont to monitor
[2019-11-26] MEDS: PROSOURCE / PROSTAT (PYXIS) 30 ML UDC PO SCH (08:49)
[2019-11-26] MEDS ORDERED: CARBOXYMETHYLCELLULOSE SODIUM 0.4 ML DROPERETTE EACHEYE PRN (11:30)
[2019-11-26 11:31] LABS: CREATININE, URINE 127.1 MG/DL (30.0-125.0); URINE TOTAL PROTEIN 60.9 mg/dL (0-11.9)
[2019-11-26] MEDS: NYSTATIN TOP POWDER 15 GM BOTTLE TP SCH ×2 (12:00→17:00)
[2019-11-26] MEDS: CLOPIDOGREL BISULFATE 75 MG TABLET PO SCH (14:00)
[2019-11-26 16:00] VITALS: BP 113/68
[2019-11-26] MEDS: VANCOMYCIN 0.75 GM in IV D5W 250 ML IV SCH (16:39)
--- NOTE | 2019-11-26 19:20 | NUR ---
RN OPENING NOTES RECEIVED PATIENT SLEEPING IN BED, BUT EASY TO AROUSE VIA TOUCH. PT APPEARS LETHARGIC. OPENS EYES, HOWEVER NONVERBAL AND DOES NOT FOLLOW COMMANDS. ON OXYGEN 3L VIA NASAL CANNULA, TOLERATING WELL, NO SOB OR RESPIRATORY DISTRESS NOTED. IV SITES LEFT WRIST 18G AND RIGHT WRIST 24G. BOTH FLUSHING AND PATENT, SITES C/D/I; ON IVF 0.45 NS RUNNING AT 100ML/HR, NO INFILTRATION NOTED. PER DAUGHTERHAM, AT BEDSIDE AND AM RN, PATIENT ABLE TO TOLERATE PUREED DIET AND CRUSHED PO MEDS WITH THE HELP OF DAUGHTER. SAFETY MEASURES IN PLACE; CALL LIGHT WITHIN REACH, SIDE RAILS UP X2, BED LOCKED AND IN LOWEST POSITION, HOB ELEVATED. WILL CONT TO MONITOR PATIENT.
--- NOTE | 2019-11-26 19:25 | NUR ---
MS RN Closing Patient remains nonverbal, lethargic. Opens eyes. On 3L O2 via NC. No SOB. Seen by wound care, orders noted and carried out. IV site x2, infusing fluids as ordered. Patient's daughter at bedside - fed lunch and dinner, 100%. Admin of morning meds with assistance of daughter. Crushed in apple sauce. Endorsed to JOSE RN for YARA
[2019-11-26 20:00] VITALS: BP 119/54
[2019-11-26] MEDS: ATORVASTATIN 40 MG TABLET PO SCH (22:00)
--- NOTE | 2019-11-26 22:20 | NUR ---
RN NOTES DID NOT ADMINISTER LIPITOR PO MEDICATION, PATIENT TOO LETHARGIC TO SWALLOW, WILL NEED FIRST SWALLOW EVALUATION. WILL ASK FOR ORDER OF SWALLOW EVAL AND WILL ENDORSE TO AM NURSE.
[2019-11-27 04:00] VITALS: BP 100/59
[2019-11-27] MEDS: PIPERACILLIN /TAZOBACTAM 2.25 G in IV D5W 50 ML IV SCH ×4 (05:45→23:55)
[2019-11-27] MEDS: IV 1/2NS 1000 ML 1,000 ML IV PRN ×2 (06:33→19:54)
[2019-11-27 06:58] LABS: BASOPHILS % (AUTO) 0.5 % (0.0-2.0); EOSINOPHILS % (AUTO) 3.8 % (0.0-6.0); HEMATOCRIT 31 % (33-45); HEMOGLOBIN 9.9 g/dL (11.5-14.8); LYMPHOCYTES # (AUTO) 0.9 /CMM (0.8-4.8); LYMPHOCYTES % (AUTO) 20.4 % (20.0-44.0); MEAN CORPUSCULAR HGB CONC 32 g/dl (31.0-36.0); MEAN CORPUSCULAR VOLUME 83 fL (82-100); MONOCYTES # (AUTO) 0.4 /CMM (0.1-1.30); MONOCYTES % (AUTO) 9.1 % (2.0-12.0); NEUTROPHILS # (AUTO) 2.9 /CMM (1.8-8.9); NEUTROPHILS % (AUTO) 66.2 % (43.0-81.0); PLATELET COUNT (AUTO) 156 /CMM (150-450); RED BLOOD CELL COUNT(AUTO) 3.68 MIL/uL (4.0-5.2); WHITE BLOOD COUNT (AUTO) 4.4 K/uL (4.3-11.0)
[2019-11-27 07:08] LABS: BILIRUBIN,TOTAL 0.5 mg/dL (0.2-1.0); CALCIUM, SERUM 8.1 mg/dL (8.5-10.1); CREATININE 0.8 mg/dL (0.6-1.3); MAGNESIUM 2.3 mg/dL (1.8-2.4); PHOSPHORUS 2.9 mg/dL (2.5-4.9); POTASSIUM 3.5 mmol/L (3.5-5.1); TOTAL PROTEIN, SERUM 5.2 g/dL (6.4-8.2)
--- NOTE | 2019-11-27 07:32 | NUR ---
RN CLOSING NOTES RECEIVED PATIENT SLEEPING IN BED, LETHARGIC. OPENS EYES, HOWEVER NONVERBAL AND DOES NOT FOLLOW COMMANDS. NO ACUTE CHANGES THROUGHOUT SHIFT. ON OXYGEN 3L VIA NASAL CANNULA, TOLERATING WELL, NO SOB OR RESPIRATORY DISTRESS NOTED. IV SITES LEFT WRIST 18G AND RIGHT WRIST 24G. BOTH FLUSHING AND PATENT, SITES C/D/I; ON IVF 0.45 NS RUNNING AT 100ML/HR, NO INFILTRATION NOTED. SAFETY MEASURES IN PLACE; CALL LIGHT WITHIN REACH, SIDE RAILS UP X2, BED LOCKED AND IN LOWEST POSITION, HOB ELEVATED. ENDORSED TO AM RN FOR YARA.
[2019-11-27 07:52] VITALS: BP 109/61
--- NOTE | 2019-11-27 08:16 | NUR ---
RN FANTA: pt is lethargic as was reported with same status, on 2L n/c O2, O2sat. WNL, reactive by touch/light pain, nonverbal, can open eyes, no eyes contact, unable to follow commands, SR, BP WNL, aspiration precaution, ELECTRICAL PLUMBING SUPERVISOR notified
[2019-11-27 08:19] VITALS: BP 109/61
[2019-11-27] MEDS: MULTIVIT W/MINERALS 1 TAB TABLET PO SCH (09:24)
[2019-11-27] MEDS: FERROUS SULFATE (325 MG) 325 MG/TAB TABLET PO SCH (09:24)
[2019-11-27] MEDS: ASCORBIC ACID 500 MG TABLET PO SCH (09:24)
[2019-11-27] MEDS: NYSTATIN TOP POWDER 15 GM BOTTLE TP SCH ×2 (09:25→17:03)
[2019-11-27] MEDS: CLOPIDOGREL BISULFATE 75 MG TABLET PO SCH (09:25)
[2019-11-27] MEDS: PROSOURCE / PROSTAT (PYXIS) 30 ML UDC PO SCH (09:25)
--- NOTE | 2019-11-27 10:30 | NUR ---
RN FANTA: pt is awake/Ox1, can follow simple commands, no c/o now, rest, O2sat. over 92%, can swallow/aspiration precaution+, pt daughter is in room/updated with POC
[2019-11-27 16:00] VITALS: BP 122/64
[2019-11-27 16:18] VITALS: BP 122/64
[2019-11-27] MEDS: VANCOMYCIN 0.75 GM in IV D5W 250 ML IV SCH (16:26)
--- NOTE | 2019-11-27 17:58 | NUR ---
HORSE RACE TIMER: pt.is A/Ox2, pt daughter is at BS, no pain, can follow commands, weak, rest, no SOB, SR/ST, SBP over 100, O2sat WNL, can swallow well/needs yard assistant, PM/skin/bedbath care done
--- NOTE | 2019-11-27 19:18 | NUR ---
RN OPENING NOTES RECEIVED PATIENT SLEEPING IN BED, APPEARS LETHARGIC. OPENS EYES, HOWEVER NONVERBAL AND DOES NOT FOLLOW COMMANDS. ON OXYGEN 3L VIA NASAL CANNULA, TOLERATING WELL, NO SOB OR RESPIRATORY DISTRESS NOTED. IV SITES LEFT WRIST 18G AND RIGHT WRIST 24G. BOTH FLUSHING AND PATENT, SITES C/D/I; ON IVF 0.45 NS RUNNING AT 100ML/HR, NO INFILTRATION NOTED. PER AM RN, PATIENT ABLE TO TOLERATE PUREED DIET AND CRUSHED PO MEDS WITH THE HELP OF FAMILY AND SLOWLY FEEDING PATIENT. SAFETY MEASURES IN PLACE; CALL LIGHT WITHIN REACH, SIDE RAILS UP X2, BED LOCKED AND IN LOWEST POSITION, HOB ELEVATED. WILL CONT TO MONITOR PATIENT.
[2019-11-27 20:00] VITALS: BP 140/47
[2019-11-27] MEDS: ATORVASTATIN 40 MG TABLET PO SCH (22:50)
--- NOTE | 2019-11-27 22:55 | NUR ---
RN NOTES PATIENT NOTED CRYING AND SPEAKING IN THAI DURING ROUNDS. LATEST HEART RATE ALSO ELEVATED; 119BPM. ASKED DAIRY SCIENCE TEACHER TO TRANSLATE AND ASK IF PATIENT IS IN PAIN, MT STATED THAT SHE SAID SHE IS IN PAIN. WILL ADMINISTER PRN PAIN MEDICATION.
[2019-11-27] MEDS: ACETAMINOPHEN 325 MG TABLET PO PRN (23:07)
[2019-11-28 04:00] VITALS: BP 129/67
[2019-11-28] MEDS: PIPERACILLIN /TAZOBACTAM 2.25 G in IV D5W 50 ML IV SCH ×4 (06:02→23:52)
[2019-11-28] MEDS: IV 1/2NS 1000 ML 1,000 ML IV PRN ×2 (06:02→08:49)
--- NOTE | 2019-11-28 07:15 | NUR ---
MS INITIAL NOTES Rec'd pt on bed, not in any distress, A/O x 1 confused, Estonian speaking. On NC at 2lpm, no SOB. Has L wrist G18 w/ 1/2 NS x 100 cc/hr infusing well, no s/sx of infection/infiltration noted. Has R wrist G24 SL. Safety precaution in place w/ bed in lowest & locked pos. Call light placed w/in reach. Will cont to monitor & attend pt needs.
--- NOTE | 2019-11-28 07:15 | NUR ---
RN CLOSING NOTES PATIENT SLEEPING IN BED, BUT EASY TO AROUSE VIA TOUCH. PATIENT A/OX1, [place] SPEAKING ONLY. IN NO APPARENT DISTRESS NOTED. ON OXYGEN 3L VIA NASAL CANNULA, TOLERATING WELL, NO SOB NOTED. IV SITES LEFT WRIST 18G AND RIGHT WRIST 24G. BOTH FLUSHING AND PATENT, SITES C/D/I; ON IVF 0.45 NS RUNNING AT 100ML/HR, NO INFILTRATION NOTED. REPOSITIONED Q2H. KEPT CLEAN, DRY, AND COMFORTABLE. SAFETY MEASURES IN PLACE; CALL LIGHT WITHIN REACH, SIDE RAILS UP X2, BED LOCKED AND IN LOWEST POSITION, HOB ELEVATED. ENDORSED TO AM RN FOR YARA.
[2019-11-28 07:34] LABS: BASOPHILS % (AUTO) 0.7 % (0.0-2.0); EOSINOPHILS % (AUTO) 2.1 % (0.0-6.0); HEMATOCRIT 35 % (33-45); HEMOGLOBIN 11.1 g/dL (11.5-14.8); LYMPHOCYTES # (AUTO) 0.9 /CMM (0.8-4.8); LYMPHOCYTES % (AUTO) 20.4 % (20.0-44.0); MEAN CORPUSCULAR HGB CONC 32 g/dl (31.0-36.0); MEAN CORPUSCULAR VOLUME 84 fL (82-100); MONOCYTES # (AUTO) 0.5 /CMM (0.1-1.30); MONOCYTES % (AUTO) 10.7 % (2.0-12.0); NEUTROPHILS % (AUTO) 66.1 % (43.0-81.0); PLATELET COUNT (AUTO) 166 /CMM (150-450); RED BLOOD CELL COUNT(AUTO) 4.12 MIL/uL (4.0-5.2); WHITE BLOOD COUNT (AUTO) 4.6 K/uL (4.3-11.0)
[2019-11-28 08:00] VITALS: BP 129/58
[2019-11-28] MEDS: CLOPIDOGREL BISULFATE 75 MG TABLET PO SCH (08:29)
[2019-11-28] MEDS: ASCORBIC ACID 500 MG TABLET PO SCH (08:29)
[2019-11-28] MEDS: FERROUS SULFATE (325 MG) 325 MG/TAB TABLET PO SCH (08:29)
[2019-11-28] MEDS: MULTIVIT W/MINERALS 1 TAB TABLET PO SCH (08:30)
[2019-11-28] MEDS: PROSOURCE / PROSTAT (PYXIS) 30 ML UDC PO SCH (08:30)
[2019-11-28] MEDS: NYSTATIN TOP POWDER 15 GM BOTTLE TP SCH ×2 (08:31→16:26)
[2019-11-28] MEDS: FLUCONAZOLE (100 MG) 100 MG TABLET PO SCH (08:35)
[2019-11-28] MEDS: ACETAMINOPHEN 325 MG TABLET PO PRN (11:47)
[2019-11-28] MEDS: HYDROCODONE/APAP 5/325MG 1 EACH TABLET PO PRN (13:15)
[2019-11-28 16:00] VITALS: BP 104/66
[2019-11-28 16:34] LABS: CALCIUM, SERUM 8.6 mg/dL (8.5-10.1); CREATININE 0.7 mg/dL (0.6-1.3); MAGNESIUM 2.2 mg/dL (1.8-2.4); PHOSPHORUS 2.6 mg/dL (2.5-4.9)
[2019-11-28 16:43] LABS: POTASSIUM 2.7 mmol/L (3.5-5.1)
[2019-11-28 16:52] LABS: APPEARANCE,URINE CLEAR (CLEAR); BILIRUBIN,URINE NEGATIVE (NEGATIVE); BLOOD, URINE NEGATIVE Ery/uL (NEGATIVE); COLOR,URINE YELLOW (YELLOW); KETONES,URINE NEGATIVE (NEGATIVE); LEUKOCYTE ESTERASE ,URINE TRACE (NEGATIVE); NITRITE, URINE NEGATIVE (NEGATIVE); PH,URINE 5.5 (5.0-8.0); PROTEIN,URINE NEGATIVE (NEGATIVE); UGLUCOSE NEGATIVE (NEGATIVE); UROBILINOGEN,URINE 0.2 EU/dL (0.2)
[2019-11-28] MEDS ORDERED: POTASSIUM CHLORIDE 20 MEQ TAB.PRT.SR PO ONE (17:00)
[2019-11-28] MEDS ORDERED: POTASSIUM CHLORIDE 10 MEQ/50 ML PREMIXED IVPB FOR PERIPHERAL LINE IV ONE (17:00)
--- NOTE | 2019-11-28 17:00 | NUR ---
K 2.7, per Dr. Clayton replace w/ 40 meqs KCl IV & 40 meqs KCl PO. Per Dr. Clayton may resume Risperidone 0.5 mg PO BID & 1 mg PO HS, per dtr's request.
[2019-11-28 17:30] LABS: BACTERIA,URINE 2+ /HPF (None Seen); RBC,URINE 0-2 /HPF (0-2)
[2019-11-28] MEDS: POTASSIUM CL. PREMIX PERIPHER. 50 ML IV SCH ×4 (17:32→22:14)
[2019-11-28 17:49] LABS: EOSINOPHIL,URINE None Seen
[2019-11-28] MEDS ORDERED: risperiDONE 0.25 MG TABLET PO ONE (18:00)
--- NOTE | 2019-11-28 18:57 | NUR ---
MS CLOSING NOTES Pt resting on her bed, A/O x1. No SOB while on NC at 2lpm. Inserted new IV line on R AC G20 w/ 1/2 NS x 40cc/hr infusing well w/ KCL replacement ongoing. R wrist G24 SL. Per Dr. Calyton if ALIGNMENT MECHANIC unsuccessful to place IV line may insert midline. Safety precaution kept in place w/ bed in lowest & locked pos. Call light placed w/in reach. Will endorse to PM RN for YARA.
--- NOTE | 2019-11-28 19:45 | NUR ---
MS1 RN NOTES RECEIVED ON BED SLEEPING,AROUSSABLE TO VERBAL STIMULI.BREATHING NON LABORED,O2 IN USED AT 2L/NC TO KEEP O2 SAT ABOVE 90%.IV POTASSIUM IN PROGRESS PIGGYBACK TO PRESENT IVF,INFUSING TO RIGHT AC SALINE LOCK.A/O X1,SPEAK SERBIAN,WILL CONTINUE TO MONITOR STATUS.DNR/DNI STATUS.
[2019-11-28 20:00] VITALS: BP 113/59
[2019-11-28] MEDS ORDERED: risperiDONE 1 MG TABLET PO SCH (22:00)
[2019-11-28] MEDS: ATORVASTATIN 40 MG TABLET PO SCH (22:04)
--- NOTE | 2019-11-29 | NUR ---
MS1 RN NOTES POTASSIUM 10MEQ X4 BAGS COMPLETED.
[2019-11-29 04:00] VITALS: BP 126/73
[2019-11-29] MEDS: PIPERACILLIN /TAZOBACTAM 2.25 G in IV D5W 50 ML IV SCH ×2 (05:31→12:00)
--- NOTE | 2019-11-29 06:18 | NUR ---
MS1 RN NOTES FAIRLY RESTED,IV ABX TOLERATED WELL.REPOSITION PER PROTOCOL.NO EPISODE OF SOB NOTED.IN NO ACUTE DISTRESS.
[2019-11-29] MEDS: IV 1/2NS 1000 ML 1,000 ML IV PRN (06:30)
[2019-11-29 07:29] LABS: CALCIUM, SERUM 8.4 mg/dL (8.5-10.1); CARBON DIOXIDE 23 mmol/L (21-32); CHLORIDE 112 mmol/L (98-107); CREATININE 0.7 mg/dL (0.6-1.3); GLUCOSE 122 mg/dL (74-106); POTASSIUM 3.8 mmol/L (3.5-5.1); SODIUM SERUM 144 mmol/L (136-145); UREA NITROGEN, BLOOD 7 mg/dL (7-18)
[2019-11-29 08:00] VITALS: BP 138/77
[2019-11-29] MEDS: CLOPIDOGREL BISULFATE 75 MG TABLET PO SCH (08:14)
[2019-11-29] MEDS: HYDROCODONE/APAP 5/325MG 1 EACH TABLET PO PRN (08:14)
[2019-11-29] MEDS: FLUCONAZOLE (100 MG) 100 MG TABLET PO SCH (08:15)
[2019-11-29] MEDS: MULTIVIT W/MINERALS 1 TAB TABLET PO SCH (08:15)
[2019-11-29] MEDS: NYSTATIN TOP POWDER 15 GM BOTTLE TP SCH (08:15)
[2019-11-29] MEDS: FERROUS SULFATE (325 MG) 325 MG/TAB TABLET PO SCH (08:15)
[2019-11-29] MEDS: PROSOURCE / PROSTAT (PYXIS) 30 ML UDC PO SCH (08:15)
[2019-11-29] MEDS: ASCORBIC ACID 500 MG TABLET PO SCH (08:15)
[2019-11-29] MEDS ORDERED: METOPROLOL TARTRATE 50 MG TABLET PO SCH (09:00)
[2019-11-29] MEDS ORDERED: risperiDONE 0.25 MG TABLET PO SCH ×3 (09:00→22:00)
[2019-11-29] MEDS ORDERED: DULOXETINE HCL 30 MG CAPSULE.DR PO SCH (09:00)
[2019-11-29 09:58] VITALS: BP 138/77
[2019-11-29] MEDS ORDERED: FLUC100T8 PO (10:14)
[2019-11-29] MEDS ORDERED: LEVO500T75 PO (10:14)
--- NOTE | 2019-11-29 13:00 | NUR ---
RN NOTE ZOSYN NOT GIVEN. IV SITE DISLODGED. PATIENT IS BEING DISCHARGED.
--- NOTE | 2019-11-29 15:16 | NUR ---
RN CLOSING NOTE PATIENT DISCHARGED TO [facility]. REPORT CALLED TO AMOL. PAPERWORK COMPLETED AND SIGNED. IV AND ID BAND REMOVED. PICTURES TAKEN AND PLACED IN CHART. LEFT VIA AMBULANCE. DAUGHTER AWARE.
[2019-11-30] MEDS ORDERED: ERGOCALCIFEROL (VITAMIN D 2) 50,000 UNIT CAPSULE PO SCH (09:00)
[2019-12-01 08:10] LABS: *SPE A/G RATIO 0.8 (0.7-1.7); *SPE ALBUMIN 2.1 g/dL (2.9-4.4); *SPE ALPHA-1-GLOBULIN 0.3 g/dL (0.0-0.4); *SPE ALPHA-2-GLOBULIN 1.1 g/dL (0.4-1.0); *SPE BETA GLOBULIN 0.8 g/dL (0.7-1.3); *SPE GLOBULIN, TOTAL 2.6 g/dL (2.2-3.9); *SPE M-SPIKE Not Observed g/dL (Not Observed); *SPEGAMMA GLOBULIN 0.4 g/dL (0.4-1.8)
[2019-12-01 15:06] LABS: PTH, INTACT 39 pg/mL (15-65)
== END 2019-11-29 15:10 | DRG 871 ==
LOC: ER 16:05 → TELE-TD 19:32 → MEDSG1 11-26 12:18
PROVIDERS: ADMIT Internal Medicine; ATTEND Internal Medicine
DX: A41.9 Sepsis, unspecified organism (principal); N17.0 Acute kidney failure with tubular necrosis; G92 Toxic encephalopathy; E44.0 Moderate protein-calorie malnutrition; D68.59 Other primary thrombophilia; E87.0 Hyperosmolality and hypernatremia; B37.49 Other urogenital candidiasis; E87.2 Acidosis; R64 Cachexia; I48.20 Chronic atrial fibrillation, unspecified; E86.1 Hypovolemia; I25.10 Atherosclerotic heart disease of native coronary artery without angina pectoris; Z95.5 Presence of coronary angioplasty implant and graft; F29 Unspecified psychosis not due to a substance or known physiological condition; E88.09 Other disorders of plasma-protein metabolism, not elsewhere classified; Z68.21 Body mass index [BMI] 21.0-21.9, adult; G62.9 Polyneuropathy, unspecified; E78.5 Hyperlipidemia, unspecified; F41.9 Anxiety disorder, unspecified; F32.9 Major depressive disorder, single episode, unspecified; Z66 Do not resuscitate; D63.8 Anemia in other chronic diseases classified elsewhere; L30.4 Erythema intertrigo; F03.90 Unspecified dementia, unspecified severity, without behavioral disturbance, psychotic disturbance, mood disturbance, and anxiety
CPT/HCPCS: 36415; 71045-TC; 80048-TC; 80053-TC; 80076-TC; 81000-TC; 82550-TC; 82570-TC; 83605-TC; 83735-TC; 83970; 84100-TC; 84155; 84155-TC; 84165; 84300-TC; 84443-TC; 84484-TC; 85025-TC; 85730-TC; 87040-TC; 87081-TC; 87086-TC; 94799-TC; G0378; J2543; J3370; J3480; J3490; J7030; J7040; J7060

== ENCOUNTER 2019-12-16 13:25 | Inpatient (IN) | payer MEDICARE, MEDICAID ==
[~2019-12-16] VITALS: Ht 160 cm; Wt 54.0 kg
[~2019-12-16 13:25] MED LIST changes: +ALBU1.257 IH; +CIPR2.5D RIGHTEYE; +FLUC100T8 PO; -GABA-532 PO; -IBUP-1955 PO; +LEVO500T75 PO; -OMEP40CA13 PO; +POLY15DR40 EACHEYE; -SACC250C PO; +SCOP1PAT11 TD; -TRAM50TA2 PO
[2019-12-16] MEDS ORDERED: ACET-868 PO (13:43)
[2019-12-16] MEDS ORDERED: LORA-259 PO (13:43)
[2019-12-16] MEDS ORDERED: AMIK250V8 IM (13:43)
[2019-12-16] MEDS ORDERED: LACT-58 PO (13:43)
[2019-12-16 14:53] LABS: BASOPHILS # (AUTO) 0.2 /CMM (0.0-0.2); EOSINOPHILS % (AUTO) 0.2 % (0.0-6.0); HEMATOCRIT 37 % (33-45); HEMOGLOBIN 11.4 g/dL (11.5-14.8); LYMPHOCYTES # (AUTO) 3.5 /CMM (0.8-4.8); LYMPHOCYTES % (AUTO) 20.3 % (20.0-44.0); MEAN CORPUSCULAR HGB CONC 31 g/dl (31.0-36.0); MEAN CORPUSCULAR VOLUME 86 fL (82-100); MONOCYTES # (AUTO) 1.8 /CMM (0.1-1.30); MONOCYTES % (AUTO) 10.3 % (2.0-12.0); NEUTROPHILS # (AUTO) 11.7 /CMM (1.8-8.9); NEUTROPHILS % (AUTO) 68.2 % (43.0-81.0); PLATELET COUNT (AUTO) 697 /CMM (150-450); WHITE BLOOD COUNT (AUTO) 17.2 K/uL (4.3-11.0)
[2019-12-16 15:05] LABS: CALCIUM, SERUM 9.7 mg/dL (8.5-10.1); CARBON DIOXIDE 31 mmol/L (21-32); CHLORIDE 113 mmol/L (98-107); CREATININE 1.2 mg/dL (0.6-1.3); GLUCOSE 153 mg/dL (74-106); SODIUM SERUM 153 mmol/L (136-145); UREA NITROGEN, BLOOD 29 mg/dL (7-18)
[2019-12-16 15:10] LABS: ALANINE AMINOTRANSFERASE 100 U/L (12-78); ALBUMIN 2.3 g/dL (3.4-5.0); ALKALINE PHOSPHATASE 78 U/L (46-116); ASPARTATE AMINOTRANSFERASE 40 U/L (15-37); BILIRUBIN,DIRECT 0.1 mg/dL (0.0-0.2); BILIRUBIN,TOTAL 0.4 mg/dL (0.2-1.0); TOTAL PROTEIN, SERUM 7.7 g/dL (6.4-8.2)
[2019-12-16 15:27] LABS: APPEARANCE,URINE Slightly Cloudy (CLEAR); BILIRUBIN,URINE Negative (NEGATIVE); BLOOD, URINE Moderate Ery/uL (NEGATIVE); COLOR,URINE Yellow (YELLOW); KETONES,URINE Negative (NEGATIVE); LEUKOCYTE ESTERASE ,URINE Small (NEGATIVE); NITRITE, URINE Negative (NEGATIVE); PROTEIN,URINE 30 mg/dl (NEGATIVE); UGLUCOSE Negative (NEGATIVE); UROBILINOGEN,URINE 0.2 EU/dL (0.2)
[2019-12-16] MEDS ORDERED: CEFEPIME 1 GM in IV D5W 50 ML IV ONE (15:30)
[2019-12-16] MEDS ORDERED: IV NS 0.9% 1,000 ML BAG IV ONE (15:30)
[2019-12-16] MEDS ORDERED: VANCOMYCIN 1 GM in IV D5W 250 ML IV ONE (15:30)
[2019-12-16 15:34] LABS: BACTERIA,URINE None seen /HPF (None Seen); SQUAMOUS EPITHELIAL CELL,UR Few /HPF (None Seen)
--- NOTE | 2019-12-16 16:18 | NUR ---
[facility]
--- NOTE | 2019-12-16 16:23 | NUR ---
report given to corby hernandez for justa pt will be transported to 2nd floor
[2019-12-16] MEDS ORDERED: NA PHOS,M-B/NA PHOS,DI-BA 1 EA ENEMA RC PRN (16:30)
[2019-12-16] MEDS ORDERED: ACETAMINOPHEN 325 MG TABLET PO PRN ×2 (16:30)
[2019-12-16] MEDS ORDERED: ONDANSETRON HCL/PF 4 MG/2 ML VIAL IVP PRN (16:30)
[2019-12-16] MEDS ORDERED: MAG HYDROX/AL HYDROX/SIMETH 30 ML UDC PO PRN (16:30)
[2019-12-16] MEDS ORDERED: BISACODYL SUPP (10 MG) 10 MG/SUPP.RECT SUPP.RECT RC PRN (16:30)
[2019-12-16] MEDS ORDERED: Z GUARD REMEDY 2 OZ OINT TP PRN (16:30)
[2019-12-16] MEDS ORDERED: LORAZEPAM 1 MG TABLET PO PRN (16:30)
[2019-12-16] MEDS ORDERED: MAGNESIUM HYDROXIDE 30 ML UDC PO PRN ×2 (16:30)
[2019-12-16] MEDS ORDERED: ALBUTEROL HALF STRENGTH 1.25 MG/3 ML VIAL.NEB IH PRN (16:30)
--- NOTE | 2019-12-16 16:35 | NUR ---
report given to papito hernandez for justa, pt will be transported to 3rd floor
[2019-12-16] MEDS ORDERED: POLYVINYL ALCOHOL 15 ML BOTTLE OP PRN (17:00)
[2019-12-16] MEDS: ENSURE ENLIVE 237 ML LIQUID (VANILLA) PO SCH (17:00)
--- NOTE | 2019-12-16 17:00 | NUR ---
PT. ADM. TO [id number]. ACCOMPANYING PT.PT. CONFUSED.STABLE. VS TAKEN.SKIN CHECKED AND NO APPARENT SKIN ISSUES,DTR.REQUESTING DNR-DNI BUT TO BE FOLLOWED UP WITH OK FROM MD TOMORROW.ADDITIONALLY DTR.FEELS RT. EYE INFECTION POSSIBLY RN TO FOLLOW UP WITH MD TOMORROW.SRINI. MEDS GIVEN TO PT.SIDE RAILS UP CALL VAN WITHIN REACH.
[2019-12-16] MEDS: ACETAMINOPHEN 325 MG TABLET PO PRN (18:34)
[2019-12-16] MEDS: SCOPOLAMINE HBR 1 EA PATCH.TD72 TD SCH (18:34)
[2019-12-16] MEDS: risperiDONE 0.25 MG TABLET PO SCH ×2 (18:34→22:00)
[2019-12-16 19:30] VITALS: BP 119/49
[2019-12-16 20:00] VITALS: BP 119/49
--- NOTE | 2019-12-16 20:12 | NUR ---
MS RN NOTES PATIENT IN BED, AWAKE, ALERT AND ORIENTED X 2. BREATHING EVEN AND UNLABORED ON ROOM AIR. DISPLAYS NO SIGN OF ACUTE RESPIRATORY DISTRESS, NO ACUTE PAIN. IV ON RIGHT HAND #20G CLEAN DRY AND INTACT. SHOWS NO SIGNS OF REDNESS, NO INFILTRATION. SAFETY PRECAUTION IN PLACE. BED IN LOWEST POSITION, LOCKED, AND CALL LIGHT KEPT WITHIN REACH. WILL CONTINUE TO MONITOR.
[2019-12-16] MEDS: METOPROLOL TARTRATE 50 MG TABLET PO SCH (20:51)
[2019-12-16 21:00] VITALS: BP 127/61
[2019-12-17] MEDS: IV NS 0.9% 1,000 ML IV PRN ×2 (04:48→18:53)
--- NOTE | 2019-12-17 06:41 | NUR ---
MS RN NOTES PATIENT IN BED, ASLEEP, ALERT AND ORIENTED X 2. BREATHING EVEN AND UNLABORED ON ROOM AIR. DISPLAYS NO SIGN OF ACUTE RESPIRATORY DISTRESS, NO ACUTE PAIN. IV ON RIGHT HAND #20G CLEAN DRY AND INTACT RUNNING NS AT 75ML/HR. SHOWS NO SIGNS OF REDNESS, NO INFILTRATION. ALL DUE MEDICATIONS GIVEN. SAFETY PRECAUTION IN PLACE. BED IN LOWEST POSITION, LOCKED, AND CALL LIGHT KEPT WITHIN REACH. WILL ENDORSE TO ONCOMING NURSE.
[2019-12-17 07:31] LABS: BASOPHILS # (AUTO) 0.1 /CMM (0.0-0.2); BASOPHILS % (AUTO) 1.4 % (0.0-2.0); EOSINOPHILS % (AUTO) 3.6 % (0.0-6.0); HEMATOCRIT 27 % (33-45); HEMOGLOBIN 8.6 g/dL (11.5-14.8); LYMPHOCYTES # (AUTO) 0.9 /CMM (0.8-4.8); LYMPHOCYTES % (AUTO) 13.4 % (20.0-44.0); MEAN CORPUSCULAR HGB CONC 32 g/dl (31.0-36.0); MEAN CORPUSCULAR VOLUME 84 fL (82-100); MONOCYTES # (AUTO) 0.6 /CMM (0.1-1.30); NEUTROPHILS # (AUTO) 4.8 /CMM (1.8-8.9); NEUTROPHILS % (AUTO) 72.6 % (43.0-81.0); PLATELET COUNT (AUTO) 390 /CMM (150-450); RED BLOOD CELL COUNT(AUTO) 3.22 MIL/uL (4.0-5.2); WHITE BLOOD COUNT (AUTO) 6.7 K/uL (4.3-11.0)
--- NOTE | 2019-12-17 07:40 | NUR ---
MS/RN NOTE THE PATIENT IS RECEIVED IN BED. PATIENT IS SLEEPING, RESPONSIVE TO TACTILE STIMULI BUT SLIGHTLY OPENING EYES. IN ROOM AIR AND NO S/S RESPIRATORY DISTRESS NOTED. IN NO APPARENT DISTRESS NOTED. RIGHT HAND G 20 PATENT AND NORMAL SALINE INFUSING AT 75ML/HR AND NO S/S INFILTRATION NOTED. BED LOW AND LOCKED. SIDE RAILS UP X3. CALL LIGHT WITHIN REACH. WILL CONTINUE TO MONITOR.
[2019-12-17 07:55] LABS: CALCIUM, SERUM 8.4 mg/dL (8.5-10.1); CREATININE 0.9 mg/dL (0.6-1.3); MAGNESIUM 2.3 mg/dL (1.8-2.4); PHOSPHORUS 3.7 mg/dL (2.5-4.9); POTASSIUM 3.7 mmol/L (3.5-5.1)
[2019-12-17 08:00] VITALS: BP_SYST 104; BP_SYST 113; BP_DIAS 53; BP_DIAS 64
[2019-12-17] MEDS: ASCORBIC ACID 500 MG TABLET PO SCH (09:00)
[2019-12-17] MEDS: METOPROLOL TARTRATE 50 MG TABLET PO SCH ×2 (09:00→21:49)
[2019-12-17] MEDS: PROSOURCE / PROSTAT (PYXIS) 30 ML UDC PO SCH (09:00)
[2019-12-17] MEDS: risperiDONE 0.25 MG TABLET PO SCH ×3 (09:00→21:50)
[2019-12-17] MEDS: ENSURE ENLIVE 237 ML LIQUID (VANILLA) PO SCH ×2 (09:00→17:48)
[2019-12-17] MEDS: MULTIVIT W/MINERALS 1 TAB TABLET PO SCH (09:00)
[2019-12-17] MEDS: DULOXETINE HCL 30 MG CAPSULE.DR PO SCH (09:00)
--- NOTE | 2019-12-17 09:36 | NUR ---
MS/RN NOTE MEDICATIONS DUE AT 0900 (CYMBALTA, PROSTAT, RISPERDAL, THERAGRAM, VITAMIN C) AND ENSURE ARE NOT ADMINISTERED DUE TO PATIENT BEING DROWSY AND NOT SAFE TO ADMINISTER MEDICATIONS. DR LANDAVERDE IS MADE AWARE.
--- NOTE | 2019-12-17 11:13 | NUR ---
MS/RN NOTE THE PATIENT IS NOTED TO BE MORE AWAKE. ALERT AND ORIENTED X1, RESPONSE TO QUESTIONS IN 1-2 WORDS AND IVORIAN. PATIENT DENIES SOB. IN ROOM AIR AND RESPIRATION REGULAR AND UNLABORED. DENIES PAIN. THE PATIENT IS IN NO APPARENT DISTRESS. DAUGHTER IS AT THE BEDSIDE. CALL LIGHT WITHIN REACH. BED LOW AND LOCKED. SIDE RAILS UP X3. CALL LIGHT WITHIN REACH. WILL CONTINUE TO MONITOR.
[2019-12-17] MEDS: FLUCONAZOLE (100 MG) 100 MG TABLET PO SCH (13:39)
[2019-12-17] MEDS ORDERED: PIPERACILLIN /TAZOBACTAM 3.375 G in IV D5W 50 ML IV ONE (14:00)
[2019-12-17 16:00] VITALS: BP 113/64
--- NOTE | 2019-12-17 18:32 | NUR ---
MS/RN NOTE THE PATIENT IS ALERT AND ORIENTED X1. ABLE TO RESPOND TO VERBAL AND TACTILE STIMULI BY OPENING EYES AND VERBALIZING 1-2 WORDS. DENIES PAIN. IN ROOM AIR AND SATURATION IS AT 92%. RESPIRATION REGULAR AND UNLABORED. DENIES SOB. THE PATIENT IS IN NO APPARENT DISTRESS. RIGHT HAND G 20 PATENT AN NS INFUSING AT 75ML/HR AND NO S/S INFILTRATION NOTED. BED LOW AND LOCKED. SIDE RAILS UP X3. CALL LIGHT WITHIN REACH. WILL ENDORSE TO FEDERAL AIR MARSHAL.
--- NOTE | 2019-12-17 19:10 | NUR ---
MS RN NOTES RECEIVED PT IN BED AND AWAKE. PT A/O X1 AND ABLE TO RESPOND TO VERBAL AND TACTILE STIMULI BY OPENING EYES AND VERBALIZING 1-2 WORDS. PT DENIES PAIN AT THIS TIME. RESPIRATIONS EVEN AND UNLABORED WITH NO S/S OF ACUTE DISTRESS OR SOB NOTED. PT WITH RIGHT HAND G 20 PATENT AN NS INFUSING AT 75ML/HR. SAFETY MEASURES IN PLACE WITH BED IN LOWEST AND LOCKED POSITION WITH SIDE RAILS UP X3. CALL LIGHT WITHIN REACH. WILL CONTINUE TO MONITOR.
[2019-12-17 20:00] VITALS: BP 120/59
[2019-12-17] MEDS: PIPERACILLIN /TAZOBACTAM 3.375 G in IV D5W 100 ML IV SCH (20:14)
--- NOTE | 2019-12-17 21:09 | NUR ---
Readmitted <30days due to sepsis and PNA. Patient resides at [facility] [phone] with bedhold x7days. She is poor historian with dementia. She is confined to bed and chair most of time. She requires max to total assist with adl's. Current dc plan is to return to [facility]. Addendum: 12/17/19 at 2107 by SOURAV NEWTON RN Amended: Links added.
[2019-12-18] MEDS: PIPERACILLIN /TAZOBACTAM 3.375 G in IV D5W 100 ML IV SCH ×3 (04:45→20:11)
--- NOTE | 2019-12-18 06:54 | NUR ---
MS RN NOTES PT IN BED AND AWAKE. PT A/O X1 AND ABLE TO RESPOND TO VERBAL AND TACTILE STIMULI BY OPENING EYES AND VERBALIZING 1-2 WORDS. PT DENIES PAIN AT THIS TIME. RESPIRATIONS EVEN AND UNLABORED WITH NO S/S OF ACUTE DISTRESS OR SOB NOTED THROUGHOUT SHIFT. PT TURNED Q2 HOURS THROUGHOUT SHIFT. PT KEPT CLEAN, DRY, AND COMFORTABLE. PT WITH RIGHT HAND G 20 PATENT AN NS INFUSING AT 75ML/HR. SAFETY MEASURES IN PLACE WITH BED IN LOWEST AND LOCKED POSITION WITH SIDE RAILS UP X3. CALL LIGHT WITHIN REACH. WILL ENDORSE TO ONCOMING NURSE FOR YARA.
[2019-12-18 08:00] VITALS: BP 134/69
--- NOTE | 2019-12-18 08:00 | NUR ---
m/s overcoil stepper: initial assessment received pt in bed awake, alert to self only with confusion and disorientation to time, place, and situation. reality orientation provided prn. no distress noted. will continue to monitor.
[2019-12-18] MEDS: FLUCONAZOLE (100 MG) 100 MG TABLET PO SCH (08:28)
[2019-12-18] MEDS: MULTIVIT W/MINERALS 1 TAB TABLET PO SCH (08:28)
[2019-12-18] MEDS: DULOXETINE HCL 30 MG CAPSULE.DR PO SCH (08:28)
[2019-12-18] MEDS: ASCORBIC ACID 500 MG TABLET PO SCH (08:28)
[2019-12-18] MEDS: METOPROLOL TARTRATE 50 MG TABLET PO SCH ×2 (08:28→22:00)
[2019-12-18] MEDS: ENSURE ENLIVE 237 ML LIQUID (VANILLA) PO SCH ×2 (08:29→17:25)
[2019-12-18] MEDS: risperiDONE 0.25 MG TABLET PO SCH ×3 (08:29→21:18)
[2019-12-18] MEDS: PROSOURCE / PROSTAT (PYXIS) 30 ML UDC PO SCH (09:03)
--- NOTE | 2019-12-18 10:00 | NUR ---
m/s contact worker: notes am care rendered by staff. kept clean and dry. turned and repositioned. will monitor.
[2019-12-18 11:21] LABS: BASOPHILS # (AUTO) 0.1 /CMM (0.0-0.2); EOSINOPHILS % (AUTO) 2.9 % (0.0-6.0); HEMATOCRIT 28 % (33-45); LYMPHOCYTES # (AUTO) 1.3 /CMM (0.8-4.8); LYMPHOCYTES % (AUTO) 18.9 % (20.0-44.0); MEAN CORPUSCULAR HGB CONC 32 g/dl (31.0-36.0); MEAN CORPUSCULAR VOLUME 84 fL (82-100); MONOCYTES # (AUTO) 0.6 /CMM (0.1-1.30); MONOCYTES % (AUTO) 8.6 % (2.0-12.0); NEUTROPHILS # (AUTO) 4.7 /CMM (1.8-8.9); NEUTROPHILS % (AUTO) 68.6 % (43.0-81.0); PLATELET COUNT (AUTO) 407 /CMM (150-450); RED BLOOD CELL COUNT(AUTO) 3.33 MIL/uL (4.0-5.2); WHITE BLOOD COUNT (AUTO) 6.8 K/uL (4.3-11.0)
--- NOTE | 2019-12-18 11:30 | NUR ---
m/s cost specialist: notes family visiting at this time. will monitor.
[2019-12-18 11:38] LABS: CALCIUM, SERUM 8.6 mg/dL (8.5-10.1); CREATININE 0.8 mg/dL (0.6-1.3); MAGNESIUM 2.2 mg/dL (1.8-2.4); PHOSPHORUS 2.6 mg/dL (2.5-4.9); POTASSIUM 3.3 mmol/L (3.5-5.1)
--- NOTE | 2019-12-18 12:00 | NUR ---
m/s wrapper dipper: notes lunch served. repositioned. hob elevated to 90 degree. water main installer helper to assist with meal.
--- NOTE | 2019-12-18 13:30 | NUR ---
m/s pipelaying fitter: notes daughter visiting. pt resting comfortable. no distress noted.
--- NOTE | 2019-12-18 14:00 | NUR ---
m/s flight nurse: notes incontinent care rendered. kept clean and dry. daughter remains at bedside.
[2019-12-18] MEDS ORDERED: IV 1/2NS 1000 ML 1,000 ML IV PRN (15:00)
[2019-12-18 16:00] VITALS: BP 122/52
--- NOTE | 2019-12-18 17:00 | NUR ---
m/s cad programmer: notes dinner served. daughter still here and assisting pt with her meal. hob elevated. no distress noted.
[2019-12-18] MEDS: ACETAMINOPHEN 325 MG TABLET PO PRN (17:26)
[2019-12-18] MEDS ORDERED: POTASSIUM CHLORIDE 20 MEQ TAB.PRT.SR PO ONE (17:30)
--- NOTE | 2019-12-18 17:52 | NUR ---
m/s automatic corn grinder operator: notes daughter left at this time. pt resting comfortable. needs attended. in no apparent distress noted. iv fluids infusing well. will continue to monitor.
--- NOTE | 2019-12-18 19:22 | NUR ---
m/s environmental health physician: notes report given to eneida (rn) for continuity of care.
--- NOTE | 2019-12-18 19:57 | NUR ---
RN NOTES RECEIVED PATIENT ASLEEP, NO SIGNS OF ACUTE RESPIRATORY DISTRESS NOTED, BREATHING EVEN AND UNLABORED, ON ROOM AIR SATING 98%. SAFETY MEASURES IN PLACE, ASPIRATION PRECAUTION EMPHASIZED, BED IN LOW LOCKED POSITION, KEEP CLEAN WARM DRY AND COMFORTABLE. IV ACCESS INTACT AND PATENT, CALL LIGHT WITHIN EASY REACH. ALL NEEDS ATTENDED, WILL CONTINUE TO MONITOR ACCORDINGLY.
[2019-12-18 20:00] VITALS: BP_SYST 116; BP_SYST 122; BP_DIAS 42; BP_DIAS 68
[2019-12-19] MEDS: PIPERACILLIN /TAZOBACTAM 3.375 G in IV D5W 100 ML IV SCH ×3 (04:02→20:14)
--- NOTE | 2019-12-19 07:28 | NUR ---
RN NOTES ALL NEEDS ATTENDED AND MET, ABLE TO REST AND SLEPT AT INTERVALS, REPOSITIONED FOR COMFORT, SAFETY MEASURES IN PLACE, ASPIRATION PRECAUTION EMPHASIZED, CALL LIGHT WITHIN EASY REACH, ENDORSED TO AM NURSE FOR CONTINUITY OF CARE.
--- NOTE | 2019-12-19 07:30 | NUR ---
MS/RN Patient received Patient received from scene shifter. A/O X1, vital signs stable, appears in no distress or discomfort at this time. IV fluids infusing at 75ml/hr via right hand 20g heplock, no signs of infiltration seen. Bed in low setting, side rails X3 in upright position, call light within reach. Bed alarm switched on. Will continue to monitor and ensure safety.
[2019-12-19 07:45] LABS: BASOPHILS # (AUTO) 0.1 /CMM (0.0-0.2); BASOPHILS % (AUTO) 0.9 % (0.0-2.0); EOSINOPHILS % (AUTO) 3.1 % (0.0-6.0); HEMATOCRIT 29 % (33-45); HEMOGLOBIN 9.1 g/dL (11.5-14.8); LYMPHOCYTES # (AUTO) 1.6 /CMM (0.8-4.8); LYMPHOCYTES % (AUTO) 18.7 % (20.0-44.0); MEAN CORPUSCULAR HGB CONC 32 g/dl (31.0-36.0); MEAN CORPUSCULAR VOLUME 85 fL (82-100); MONOCYTES # (AUTO) 0.7 /CMM (0.1-1.30); MONOCYTES % (AUTO) 8.1 % (2.0-12.0); NEUTROPHILS % (AUTO) 69.2 % (43.0-81.0); PLATELET COUNT (AUTO) 411 /CMM (150-450); RED BLOOD CELL COUNT(AUTO) 3.36 MIL/uL (4.0-5.2); WHITE BLOOD COUNT (AUTO) 8.6 K/uL (4.3-11.0)
[2019-12-19 08:00] VITALS: BP 129/65
--- NOTE | 2019-12-19 08:30 | NUR ---
MS/RN S/B Dr Clayton Seen by MD - continue with hypotonic fluid resuscitation, labs ordered for tomorrow.
[2019-12-19 08:39] LABS: CALCIUM, SERUM 8.9 mg/dL (8.5-10.1); CREATININE 0.8 mg/dL (0.6-1.3); MAGNESIUM 2.3 mg/dL (1.8-2.4); PHOSPHORUS 2.5 mg/dL (2.5-4.9); POTASSIUM 4.1 mmol/L (3.5-5.1)
[2019-12-19] MEDS: ENSURE ENLIVE 237 ML LIQUID (VANILLA) PO SCH ×2 (08:50→17:29)
[2019-12-19] MEDS: ASCORBIC ACID 500 MG TABLET PO SCH (08:51)
[2019-12-19] MEDS: METOPROLOL TARTRATE 50 MG TABLET PO SCH ×2 (08:51→21:10)
[2019-12-19] MEDS: DULOXETINE HCL 30 MG CAPSULE.DR PO SCH (08:51)
[2019-12-19] MEDS: MULTIVIT W/MINERALS 1 TAB TABLET PO SCH (08:51)
[2019-12-19] MEDS: risperiDONE 0.25 MG TABLET PO SCH ×3 (08:51→21:11)
[2019-12-19] MEDS: PROSOURCE / PROSTAT (PYXIS) 30 ML UDC PO SCH (09:00)
--- NOTE | 2019-12-19 10:30 | NUR ---
MS/RN Labs Morning labs reviewed: H&H .12/30 Sodium 153 BUN 19 Creat 0.8
--- NOTE | 2019-12-19 11:00 | NUR ---
MS/RN S/B Dr Burnett Seen by Dr Burnett - IV fluids changed to D5W due to high sodium level on today's blood draw.
--- NOTE | 2019-12-19 11:45 | NUR ---
MS/RN Code status Code status changed to DNR/DNI. Per Dr Clayton's notes, patient is a no code.
[2019-12-19] MEDS: IV D5W 1,000 ML IV SCH ×2 (11:57→20:30)
--- NOTE | 2019-12-19 12:10 | NUR ---
MS/hog handler update Daughter at bedside and updated as to plan of care.
[2019-12-19 16:00] VITALS: BP 122/71
--- NOTE | 2019-12-19 16:00 | NUR ---
MS/RN CT scan Patient taken to CT scan.
--- NOTE | 2019-12-19 17:00 | NUR ---
MS/RN CT head CT scan of head resulted. Shows chronic small vessel ischemia, no hemorrhage, mass or infarct seen.
[2019-12-19] MEDS: SCOPOLAMINE HBR 1 EA PATCH.TD72 TD SCH (17:29)
--- NOTE | 2019-12-19 18:25 | NUR ---
MS/RN End note Patient remains in stable condition, no new concerns or needs at this time. Will endorse to film processing shift supervisor.
[2019-12-19 20:00] VITALS: BP 147/76
--- NOTE | 2019-12-19 20:40 | NUR ---
MS RN OPENING NOTES PATIENT RECEIVED RESTING IN BED A/O X1. PATIENT ON 2L OF O2 VIA NC WITH BREATHING EVEN AND UNLABORED, NO SOB NOTED. NO SIGNS OF ACUTE DISTRESS. NO COMPLAINTS OF PAIN OR DISCOMFORT AND NO FACIAL GRIMACING. IV LOCATED ON R HAND #20 RUNNING D5W. SAFETY PRECAUTIONS IN PLACE WITH BED IN LOWEST POSITION, LOCKED, BREAKS ON, AND CALL LIGHT WITHIN REACH. WILL CONTINUE TO MONITOR.
[2019-12-20] MEDS: PIPERACILLIN /TAZOBACTAM 3.375 G in IV D5W 100 ML IV SCH ×3 (03:59→20:14)
--- NOTE | 2019-12-20 06:34 | NUR ---
MS RN CLOSING NOTES PATIENT CURRENTLY RESTING IN BED, A/O X 1 KAZAKH SPEAKING. SHE IS ON 2L OF O2 VIA NC WITH BREATHING EVEN AND UNLABORED, NO SOB NOTED. NO SIGNS OF ACUTE DISTRESS NOTED. NO COMPLAINTS OF PAIN OR DISCOMFORT. IV LOCATE ON R HAND #20 RUNNING D5W. ALL NEEDS WERE ATTENDED TO THROUGHOUT THE NIGHT AND PATIENT WAS KEPT CLEAN AND DRY. SAFETY PRECAUTIONS IN PLACE WITH BED IN LOWEST POSITION, BREAKS ON, SIDERAILS UP X2, AND CALL LIGHT WITHIN REACH. WILL ENDORSE TO ONCOMING SHIFT ABOUT YARA.
[2019-12-20 08:00] VITALS: BP 147/84
--- NOTE | 2019-12-20 08:00 | NUR ---
RN NOTES RECEIVED PATIENT IN THE BED OPEN EYES WHEN CALLED NAME OR TOUCHED, PATIENT CONFUSED, FRISIAN SPEAKER. PATIENT ON O2-2L NC NO ACUTE RESPIRATORY DISTRESS,HOB ELEVATED, V/S STABLE. INFUSING D5W AT 100 ML/HR ON RIGHT HAND. PATENT FEEDER, ASSIST TURN AND REPOSTION Q 2 HR. SAFETY PRECAUTION MAINTAINED ALL THE TIME.
[2019-12-20 08:04] LABS: BASOPHILS # (AUTO) 0.1 /CMM (0.0-0.2); BASOPHILS % (AUTO) 0.7 % (0.0-2.0); EOSINOPHILS % (AUTO) 2.3 % (0.0-6.0); HEMATOCRIT 28 % (33-45); LYMPHOCYTES # (AUTO) 1.7 /CMM (0.8-4.8); LYMPHOCYTES % (AUTO) 16.1 % (20.0-44.0); MEAN CORPUSCULAR HGB CONC 32 g/dl (31.0-36.0); MEAN CORPUSCULAR VOLUME 84 fL (82-100); MONOCYTES # (AUTO) 0.7 /CMM (0.1-1.30); MONOCYTES % (AUTO) 6.3 % (2.0-12.0); NEUTROPHILS # (AUTO) 7.7 /CMM (1.8-8.9); NEUTROPHILS % (AUTO) 74.6 % (43.0-81.0); PLATELET COUNT (AUTO) 426 /CMM (150-450); RED BLOOD CELL COUNT(AUTO) 3.36 MIL/uL (4.0-5.2); WHITE BLOOD COUNT (AUTO) 10.3 K/uL (4.3-11.0)
[2019-12-20 08:26] LABS: CALCIUM, SERUM 8.9 mg/dL (8.5-10.1); CREATININE 0.8 mg/dL (0.6-1.3); MAGNESIUM 2.2 mg/dL (1.8-2.4); PHOSPHORUS 3.7 mg/dL (2.5-4.9); POTASSIUM 3.6 mmol/L (3.5-5.1)
[2019-12-20] MEDS: MULTIVIT W/MINERALS 1 TAB TABLET PO SCH ×2 (09:00→11:20)
[2019-12-20] MEDS: PROSOURCE / PROSTAT (PYXIS) 30 ML UDC PO SCH (09:00)
[2019-12-20] MEDS: risperiDONE 0.25 MG TABLET PO SCH ×4 (09:00→21:35)
[2019-12-20] MEDS: DULOXETINE HCL 30 MG CAPSULE.DR PO SCH ×2 (09:00→11:20)
[2019-12-20] MEDS: ENSURE ENLIVE 237 ML LIQUID (VANILLA) PO SCH ×3 (09:00→17:22)
[2019-12-20] MEDS: ASCORBIC ACID 500 MG TABLET PO SCH ×2 (09:00→11:20)
[2019-12-20] MEDS: METOPROLOL TARTRATE 50 MG TABLET PO SCH ×3 (09:00→21:36)
[2019-12-20] MEDS: IV D5W 1,000 ML IV SCH (12:05)
--- NOTE | 2019-12-20 13:00 | NUR ---
RN NOTES PATIENT IN THE BED ADMINISTERED SCHEDULED MEDICATION, ASSIST EATING TOLERATED LUNCH WELL. PATIENT HAS NO COMPLAINING OF PAIN AT THIS TIME, KEEP HOB ELEVATED FOR ASPIRATION PRECAUTION.
[2019-12-20 16:00] VITALS: BP 139/70
[2019-12-20] MEDS: ACETAMINOPHEN 325 MG TABLET PO PRN (17:54)
--- NOTE | 2019-12-20 17:54 | NUR ---
RN NOTES ADMINISTERED TYLENOL 650 MG PO PRN FOR LOWER EXTREMITIES PAIN PER PATIENT REQUEST CRUSHED AND MIXED WITH APPLE SAUCE, WITH FAMILY ASSIST TOLERATED DINNER 100%, ASSIST TURN AND REPOSTION Q 2 HR, CALL LIGHT WITHIN TO REACH. CONTINUED MONITORING.
--- NOTE | 2019-12-20 18:30 | NUR ---
rn notes patient resting in the bed, medication were administered for pain effective.infusin D5W 100 ml/hr on right hand intact, v/s stable. patient tolerated dinner 100 %, reapposition q 2 hr, needs attended and anticipated. safety precaution maintained all the time. endorsed oncoming nurse follow plan of care.
[2019-12-20 20:00] VITALS: BP 126/66
--- NOTE | 2019-12-20 22:49 | NUR ---
MS RN OPENING NOTES PATIENT RECEIVED RESTING IN BED A/O X 1, MALDIVIAN PEAKING. ON 2L OF O2 VIA NC, BREATHING EVEN AND UNLABORED, NO SOB NOTED. NO SIGNS OF ACUTE DISTRESS. NO COMPLAINTS OF PAIN OR DISCOMFORT. IV LOCATED ON R HAND RUNNING D5W @ 100 ML/ HR. SAFETY PRECAUTIONS IN PLACE WITH BED IN LOWEST POSITION, CALL LIGHT WITHIN REACH, BREAKS ON, SIDE RAILS UP X2. WILL CONTINUE TO MONITOR.
[2019-12-21] MEDS: PIPERACILLIN /TAZOBACTAM 3.375 G in IV D5W 100 ML IV SCH ×2 (03:52→12:49)
--- NOTE | 2019-12-21 06:55 | NUR ---
MS RN CLOSING NOTES PATIENT CURRENTLY RESTING IN BED A/O X 1, TOGOLESE PEAKING. ON 2L OF O2 VIA NC, BREATHING EVEN AND UNLABORED, NO SOB NOTED. NO SIGNS OF ACUTE DISTRESS. NO COMPLAINTS OF PAIN OR DISCOMFORT. IV LOCATED ON R HAND RUNNING D5W @ 100 ML/ HR. SAFETY PRECAUTIONS IN PLACE WITH BED IN LOWEST POSITION, CALL LIGHT WITHIN REACH, BREAKS ON, SIDE RAILS UP X2. PATIENT WAS KEPT CLEAN AND DRY THROUGHOUT THE NIGHT. ALL NEEDS ATTENDED TO. WILL ENDORSE TO ONCOMING SHIFT ABOUT YARA.
[2019-12-21 08:00] VITALS: BP 164/97
--- NOTE | 2019-12-21 08:00 | NUR ---
RN NOTES RECEIVED PATIENT IN THE BED AWAKE, CONFUSED, MALAWIAN SPEAKER. PATIENT ON O2-2L NC NO ACUTE RESPIRATORY DISTRESS. HOB ELEVATED FOR ASPIRATION PRECAUTION, V/S STABLE. INFUSING D5W AT 100 ML/HR ON RIGHT. PATENT FEEDER TOLERATED BREAKFAST 85% WITH ASSIST, ALSO ADMINISTERED SCHEDULED MEDICATION WITH CRUSHED AND MIXED WITH APPLE SAUCE., ASSIST TURN AND REPOSTION Q 2 HR.PATIENT INCONTINENT, APPLIED Z-GURD, SAFETY PRECAUTION MAINTAINED ALL THE TIME.
[2019-12-21 08:30] VITALS: BP 164/97
[2019-12-21] MEDS: risperiDONE 0.25 MG TABLET PO SCH ×2 (09:11→17:40)
[2019-12-21] MEDS: ASCORBIC ACID 500 MG TABLET PO SCH (09:11)
[2019-12-21] MEDS: MULTIVIT W/MINERALS 1 TAB TABLET PO SCH (09:11)
[2019-12-21] MEDS: DULOXETINE HCL 30 MG CAPSULE.DR PO SCH (09:11)
[2019-12-21] MEDS: ACETAMINOPHEN 325 MG TABLET PO PRN (09:12)
[2019-12-21] MEDS: METOPROLOL TARTRATE 50 MG TABLET PO SCH (09:12)
--- NOTE | 2019-12-21 09:12 | NUR ---
RN NOTES ADMINISTERED TYLENOL 650 MG PO PRN FOR GENERALIZED PAIN 05/11, ALSO ADMINISTERED SCHEDULED MEDICATION CRUSHED AND MIXED WITH APPLE SAUCE.
[2019-12-21] MEDS: ENSURE ENLIVE 237 ML LIQUID (VANILLA) PO SCH ×2 (09:13→17:40)
[2019-12-21] MEDS: PROSOURCE / PROSTAT (PYXIS) 30 ML UDC PO SCH (09:18)
[2019-12-21] MEDS: IV D5W 1,000 ML IV SCH (09:25)
[2019-12-21 12:18] LABS: BASOPHILS # (AUTO) 0.2 /CMM (0.0-0.2); BASOPHILS % (AUTO) 1.4 % (0.0-2.0); EOSINOPHILS % (AUTO) 1.9 % (0.0-6.0); HEMATOCRIT 28 % (33-45); LYMPHOCYTES # (AUTO) 1.3 /CMM (0.8-4.8); LYMPHOCYTES % (AUTO) 9.9 % (20.0-44.0); MEAN CORPUSCULAR HGB CONC 32 g/dl (31.0-36.0); MEAN CORPUSCULAR VOLUME 83 fL (82-100); MONOCYTES # (AUTO) 0.8 /CMM (0.1-1.30); NEUTROPHILS # (AUTO) 10.7 /CMM (1.8-8.9); NEUTROPHILS % (AUTO) 80.8 % (43.0-81.0); PLATELET COUNT (AUTO) 498 /CMM (150-450); WHITE BLOOD COUNT (AUTO) 13.2 K/uL (4.3-11.0)
[2019-12-21 12:35] LABS: CALCIUM, SERUM 9.2 mg/dL (8.5-10.1); MAGNESIUM 2.2 mg/dL (1.8-2.4); PHOSPHORUS 3.5 mg/dL (2.5-4.9); POTASSIUM 3.4 mmol/L (3.5-5.1)
--- NOTE | 2019-12-21 13:00 | NUR ---
RN NOTES PATIENT WILL DISCHARGE BACK TO THE SNF PER HOSPITALIST ORDER, WILL CONTINUED PO ANTIBIOTIC # 3 DAYS.
[2019-12-21] MEDS ORDERED: LEVO500T75 PO (13:43)
[2019-12-21 16:00] VITALS: BP 114/73
--- NOTE | 2019-12-21 18:30 | NUR ---
RN NOTES PATIENT WILL DISCHARGE BACK TO THE SNF. PATIENT STABLE, NO ACUTE RESPIRATORY DISTRESS, V/S STABLE, MED RECONCILIATION AND DISCHARGE ORDER REVIEWED AND EXPLAINED TO THE DAUGHTER. REPORT GIVEN SNF RINA BEARDEN. RN VERBALIZED UNDERSTANDING, BELONGING WITH THE PATIENT. ADMINISTERED SCHEDULED MEDICATION. PATIENT UNABLE TO SIGN PAPERWORK, COSIGN VIA RN ROSMERY. PATIENT WILL BOARD OF EDUCATION SECRETARY BY AMBULANCE. FAMILY NEXT TO THE BED.
--- NOTE | 2019-12-21 20:45 | NUR ---
clinical phlebotomist notes pt ready for d/c to SNF and family at the bedside. pt vital signs as ff. BP 100/55, PULSE 116, RESP 20, TEMP 99 AND O2 SAT 100 % IN ROOM AIR. Pt is awake and alert no signs of any acute distress or any discomfort noted. AM shift nurse Estefany was already gave report to Eliza receiving nurse from [facility]. gave report to Global Account Director and hand held the copy of pt chart. belonging was also checked by gia and i removed heplock of the pt. pt left via ambulance.
== END 2019-12-21 20:45 | DRG 682 ==
LOC: ER 13:41 → MED 16:21
PROVIDERS: ADMIT Internal Medicine; ATTEND Internal Medicine
DX: N17.0 Acute kidney failure with tubular necrosis (principal); G93.41 Metabolic encephalopathy; E87.0 Hyperosmolality and hypernatremia; N39.0 Urinary tract infection, site not specified; E44.0 Moderate protein-calorie malnutrition; D68.59 Other primary thrombophilia; E87.2 Acidosis; R64 Cachexia; F02.80 Dementia in other diseases classified elsewhere, unspecified severity, without behavioral disturbance, psychotic disturbance, mood disturbance, and anxiety; G30.9 Alzheimer's disease, unspecified; E86.0 Dehydration; D64.9 Anemia, unspecified; Z66 Do not resuscitate; I25.10 Atherosclerotic heart disease of native coronary artery without angina pectoris; Z95.5 Presence of coronary angioplasty implant and graft; Z90.710 Acquired absence of both cervix and uterus; Z79.899 Other long term (current) drug therapy; Z79.83 Long term (current) use of bisphosphonates; F41.9 Anxiety disorder, unspecified; F32.9 Major depressive disorder, single episode, unspecified; E78.5 Hyperlipidemia, unspecified; G62.9 Polyneuropathy, unspecified; I10 Essential (primary) hypertension; E86.1 Hypovolemia; E78.00 Pure hypercholesterolemia, unspecified; Z96.642 Presence of left artificial hip joint
CPT/HCPCS: 36415; 70450-TC; 71045-TC; 80048-TC; 80076-TC; 81000-TC; 83605-TC; 83735-TC; 84100-TC; 84484-TC; 85025-TC; 85730-TC; 87040-TC; 87081-TC; 87086-TC; G0378; J0692; J2543; J3370; J3490; J7030; J7060; J7070

== ENCOUNTER 2019-12-31 12:22 | Inpatient (IN) | payer MEDICARE, MEDICAID ==
[~2019-12-31] VITALS: Ht 152.4 cm; Wt 51.3 kg
[~2019-12-31 12:22] MED LIST changes: +AMIK250V8 IM; -AMLO2.5T2 PO; +ASCO-352 PO; -ASCO500T9 PO; -ATOR40TA PO; -CIPR2.5D RIGHTEYE; -FERR325T23 PO; -FLUC100T8 PO; +LACT-58 PO; +LORA-259 PO
--- NOTE | 2019-12-31 12:25 | NUR ---
BIB ems frm snf c/o fever and elevated WBC >20, to er bed 8, hooked to monitor, changed to hosp gown, warm blanket provided. dr botello at bedside
[2019-12-31] MEDS ORDERED: LEVO750T21 PO (12:44)
[2019-12-31] MEDS ORDERED: METO50TA16 PO (12:44)
[2019-12-31] MEDS ORDERED: LACT1CAP71 PO (12:44)
--- NOTE | 2019-12-31 12:58 | NUR ---
MOVE SHEET TURNED INTO ADMITTING AND CALLED FOR TELE BED
--- NOTE | 2019-12-31 12:59 | NUR ---
called for tele bed
[2019-12-31] MEDS ORDERED: IV NS 0.9% 1,000 ML BAG IV ONE (13:00)
[2019-12-31 13:05] LABS: BASOPHILS # (AUTO) 0.1 /CMM (0.0-0.2); BASOPHILS % (AUTO) 0.4 % (0.0-2.0); EOSINOPHILS % (AUTO) 0.8 % (0.0-6.0); HEMATOCRIT 27 % (33-45); HEMOGLOBIN 8.5 g/dL (11.5-14.8); LYMPHOCYTES # (AUTO) 1.8 /CMM (0.8-4.8); LYMPHOCYTES % (AUTO) 8.8 % (20.0-44.0); MEAN CORPUSCULAR HGB CONC 32 g/dl (31.0-36.0); MEAN CORPUSCULAR VOLUME 85 fL (82-100); MONOCYTES # (AUTO) 0.9 /CMM (0.1-1.30); MONOCYTES % (AUTO) 4.2 % (2.0-12.0); NEUTROPHILS # (AUTO) 17.5 /CMM (1.8-8.9); NEUTROPHILS % (AUTO) 85.8 % (43.0-81.0); PLATELET COUNT (AUTO) 500 /CMM (150-450); RED BLOOD CELL COUNT(AUTO) 3.16 MIL/uL (4.0-5.2); WHITE BLOOD COUNT (AUTO) 20.4 K/uL (4.3-11.0)
[2019-12-31 13:12] LABS: CALCIUM, SERUM 9.6 mg/dL (8.5-10.1); CARBON DIOXIDE 28 mmol/L (21-32); CHLORIDE 111 mmol/L (98-107); CREATININE 1.4 mg/dL (0.6-1.3); GLUCOSE 121 mg/dL (74-106); POTASSIUM 4.3 mmol/L (3.5-5.1); SODIUM SERUM 148 mmol/L (136-145); UREA NITROGEN, BLOOD 31 mg/dL (7-18)
[2019-12-31 13:18] LABS: ALANINE AMINOTRANSFERASE 35 U/L (12-78); ALKALINE PHOSPHATASE 65 U/L (46-116); ASPARTATE AMINOTRANSFERASE 26 U/L (15-37); BILIRUBIN,TOTAL 0.3 mg/dL (0.2-1.0); TOTAL PROTEIN, SERUM 6.8 g/dL (6.4-8.2)
--- NOTE | 2019-12-31 13:30 | NUR ---
urine collected via straight catheter, sent sample to lab
[2019-12-31 13:32] LABS: APPEARANCE,URINE Cloudy (CLEAR); BILIRUBIN,URINE Negative (NEGATIVE); BLOOD, URINE Small Ery/uL (NEGATIVE); COLOR,URINE Yellow (YELLOW); KETONES,URINE Negative (NEGATIVE); LEUKOCYTE ESTERASE ,URINE Large (NEGATIVE); NITRITE, URINE Negative (NEGATIVE); PROTEIN,URINE 100 mg/dl (NEGATIVE); UGLUCOSE Negative (NEGATIVE); UROBILINOGEN,URINE 0.2 EU/dL (0.2)
[2019-12-31 13:33] LABS: BACTERIA,URINE Few /HPF (None Seen); SQUAMOUS EPITHELIAL CELL,UR Few /HPF (None Seen)
--- NOTE | 2019-12-31 13:37 | NUR ---
[facility] paged
--- NOTE | 2019-12-31 13:59 | NUR ---
[facility] BED 310-2
[2019-12-31] MEDS ORDERED: PIPERACILLIN /TAZOBACTAM 3.375 G in IV D5W 50 ML IV ONE (14:00)
[2019-12-31] MEDS ORDERED: VANCOMYCIN 1 GM in IV D5W 250 ML IV ONE (14:00)
[2019-12-31] MEDS ORDERED: PIPERACILLIN /TAZOBACTAM 3.375 G VIAL IV ONE (14:02)
[2019-12-31] MEDS ORDERED: VANCOMYCIN 1 GM VIAL ONE (14:02)
--- NOTE | 2019-12-31 14:22 | NUR ---
report given to Nayeli of tele unit
[2019-12-31] MEDS ORDERED: IV NS 0.9% 1,000 ML IV PRN (14:26)
[2019-12-31] MEDS ORDERED: ONDANSETRON HCL/PF 4 MG/2 ML VIAL IVP PRN (14:30)
[2019-12-31] MEDS ORDERED: TEMAZEPAM 7.5 MG CAPSULE PO PRN (14:30)
[2019-12-31] MEDS ORDERED: MAGNESIUM HYDROXIDE 30 ML UDC PO PRN (14:30)
[2019-12-31] MEDS ORDERED: MAG HYDROX/AL HYDROX/SIMETH 30 ML UDC PO PRN (14:30)
[2019-12-31] MEDS ORDERED: Z GUARD REMEDY 2 OZ OINT TP PRN (14:30)
[2019-12-31] MEDS ORDERED: MORPHINE SULFATE INJ 2 MG/ML DISP.SYRIN IV PRN (14:30)
[2019-12-31] MEDS ORDERED: HYDROCODONE/APAP 5/325MG 1 EACH TABLET PO PRN (14:30)
[2019-12-31] MEDS ORDERED: FEE PK DOSING 1 MIN EA MC ONE (14:45)
[2019-12-31 15:00] VITALS: BP 92/46
[2019-12-31] MEDS ORDERED: ALBUTEROL FS 2.5 MG/3 ML VIAL.NEB NEB PRN (15:00)
[2019-12-31] MEDS ORDERED: LORAZEPAM 1 MG TABLET PO PRN (15:00)
--- NOTE | 2019-12-31 15:00 | NUR ---
SOLAR SALES ESTIMATOR NOTES ADMITTED PATIENT FROM EMERGENCY ROOM REPORT GIVEN JEC RN. PATIENT NON VERBAL, RESPOND TO VERBAL AND TACTILE STIMULI.PLACED ON SYRUP MIXER HELPER. NO ACUTE DISTRESS NOTED. BREATHING UNLABORED. ON 2LPM VIA NC TOLERATING WELL. PATIENT DAUGHTER AT BED SIDE. SAFETY MEASURES IN PLACE. CALL LIGHT WITHIN REACH. WILL CONTINUE TO MONITOR ACCORDINGLY.
--- NOTE | 2019-12-31 15:00 | NUR ---
FUNERAL CAR DRIVER NOTES ADMITTED PATIENT FROM EMERGENCY ROOM REPORT GIVEN [facility] RN. PATIENT NON VERBAL, RESPOND TO VERBAL AND TACTILE STIMULI.PLACED ON ABLE BODIED TANKERMAN. NO ACUTE DISTRESS NOTED. BREATHING UNLABORED. ON 2LPM VIA NC TOLERATING WELL. PATIENT AT BED SIDE. SAFETY MEASURES IN PLACE. CALL LIGHT WITHIN REACH. WILL CONTINUE TO MONITOR ACCORDINGLY. Addendum: 12/31/19 at 1828 by CARINA ESTRELLA RN DISREGARD ABOVE NOTES
[2019-12-31 15:30] VITALS: BP 92/46
[2019-12-31] MEDS ORDERED: POLYVINYL ALCOHOL 15 ML BOTTLE EACHEYE PRN (15:30)
--- NOTE | 2019-12-31 15:45 | NUR ---
GAS WORKER NOTES CLARIFIED DIET ORDERS WITH TANGLED YARN SPOOL STRAIGHTENER SARA GRIFFIN WITH ORDERS FOR PUREED CARDIAC DIET, ORDER CLARIFIED AND READBACK TO TANGLED YARN SPOOL STRAIGHTENER , NOTED AND CARRIED OUT.
[2019-12-31] MEDS: risperiDONE 0.25 MG TABLET PO SCH (17:00)
[2019-12-31] MEDS ORDERED: PIPERACILLIN /TAZOBACTAM 3.375 G in IV D5W 50 ML IV SCH (18:00)
--- NOTE | 2019-12-31 19:00 | NUR ---
SLIDE MACHINE TENDER NOTES PATIENT IN BED EYES CLOSED, EASY TO AROUSE, RESPOND TO VERBAL AND TACTILE STIMULI. NO ACUTE DISTRESS NOTED. BREATHING UNLABORED. ON 2LPM VIA NC TOLERATING WELL.NEEDS ATTENDED AND ANTICIPATED. KEPT CLEAN DRY AND COMFORTABLE. SAFETY MEASURES IN PLACE. CALL LIGHT WITHIN REACH. WILL ENDORSE TO NIGHT NURSE FOR CONTINUITY OF CARE.
--- NOTE | 2019-12-31 19:00 | NUR ---
RECIEVED IN BED EYES CLOSED RESP EVEN AND UNLABORED ON A LANDSCAPING SUPERVISOR. SKIN WARM AND DRY
[2019-12-31 20:00] VITALS: BP 91/57
[2019-12-31 20:02] VITALS: BP 97/48
[2019-12-31] MEDS: PIPERACILLIN /TAZOBACTAM 2.25 G in IV D5W 50 ML IV SCH (20:33)
[2019-12-31] MEDS: risperiDONE 1 MG TABLET PO SCH (21:09)
[2019-12-31] MEDS: METOPROLOL TARTRATE 50 MG TABLET PO SCH (21:09)
[2019-12-31] MEDS: HEPARIN SODIUM, PORCINE 5000 UNITS/1 ML VIAL SQ SCH (21:11)
[2020-01-01] VITALS (9 sets, daily range): BP systolic 98–152; BP diastolic 50–71
--- NOTE | 2020-01-01 02:00 | NUR ---
TEXT MD GOMEZ TO MAKE HIM AWARE THAT MS. ARIAS 'S HR IS 127 - 130 ASYMPTOMATIC. BLOOD PRESSURE 98/50 RESP EVEN AND UNLABORED. NO NEW ORDERS.
[2020-01-01] MEDS: PIPERACILLIN /TAZOBACTAM 2.25 G in IV D5W 50 ML IV SCH ×4 (02:34→20:11)
--- NOTE | 2020-01-01 06:18 | NUR ---
Alert X1 to self. She swallows w/o problem aspiration precautions. one small emesis last night, cushed pilss given with applesauce. incontinent UA kept cln and dry. Lopressor 150 mg hel at 2100 d/t Blood pressure 97/48 HR95. At 1AM noted HR 126 -130. MD Garnica made aware, no new orders. By 4AM noted HR at 114/min asmptamatic.
[2020-01-01 06:19] LABS: BASOPHILS # (AUTO) 0.1 /CMM (0.0-0.2); BASOPHILS % (AUTO) 0.9 % (0.0-2.0); EOSINOPHILS % (AUTO) 2.2 % (0.0-6.0); HEMATOCRIT 24 % (33-45); HEMOGLOBIN 7.6 g/dL (11.5-14.8); LYMPHOCYTES % (AUTO) 13.6 % (20.0-44.0); MEAN CORPUSCULAR HGB CONC 32 g/dl (31.0-36.0); MEAN CORPUSCULAR VOLUME 84 fL (82-100); MONOCYTES # (AUTO) 0.5 /CMM (0.1-1.30); MONOCYTES % (AUTO) 6.3 % (2.0-12.0); NEUTROPHILS # (AUTO) 5.5 /CMM (1.8-8.9); PLATELET COUNT (AUTO) 364 /CMM (150-450); RED BLOOD CELL COUNT(AUTO) 2.81 MIL/uL (4.0-5.2); WHITE BLOOD COUNT (AUTO) 7.2 K/uL (4.3-11.0)
[2020-01-01 07:07] LABS: ALBUMIN 1.7 g/dL (3.4-5.0); BILIRUBIN,TOTAL 0.3 mg/dL (0.2-1.0); CALCIUM, SERUM 8.4 mg/dL (8.5-10.1); CREATININE 1.1 mg/dL (0.6-1.3); MAGNESIUM 2.3 mg/dL (1.8-2.4); PHOSPHORUS 3.2 mg/dL (2.5-4.9); POTASSIUM 3.4 mmol/L (3.5-5.1); TOTAL PROTEIN, SERUM 6.2 g/dL (6.4-8.2)
[2020-01-01] MEDS: DILTIAZEM HCL CD 240 MG PO SCH (08:30)
[2020-01-01] MEDS: ASCORBIC ACID 500 MG TABLET PO SCH (08:31)
[2020-01-01] MEDS: DULOXETINE HCL 30 MG CAPSULE.DR PO SCH (08:31)
[2020-01-01] MEDS: MULTIVIT W/MINERALS 1 TAB TABLET PO SCH (08:31)
[2020-01-01] MEDS: ACIDOPHILUS/BULGARICUS 1 EACH TAB.CHEW PO SCH (08:31)
[2020-01-01] MEDS: METOPROLOL TARTRATE 50 MG TABLET PO SCH ×2 (08:32→22:30)
[2020-01-01] MEDS: PROSOURCE / PROSTAT (PYXIS) 30 ML UDC PO SCH (08:32)
[2020-01-01] MEDS: risperiDONE 0.25 MG TABLET PO SCH ×2 (08:32→17:00)
[2020-01-01] MEDS: PANTOPRAZOLE 40 MG TABLET.DR PO SCH (08:32)
[2020-01-01] MEDS: HEPARIN SODIUM, PORCINE 5000 UNITS/1 ML VIAL SQ SCH ×2 (09:00→21:00)
[2020-01-01] MEDS ORDERED: SCOPOLAMINE HBR 1 EA PATCH.TD72 TD SCH ×2 (09:00→18:00)
[2020-01-01] MEDS: ACETAMINOPHEN 325 MG TABLET PO PRN (10:48)
--- NOTE | 2020-01-01 13:45 | NUR ---
AGRICULTURAL COMMODITIES INSPECTOR NOTES PATIENT NOTED SOB WITH WHEEZING. RT CALLED TO ADMINISTER NEEDED BREATHING TREATMENT. PATIENT IMPROVED WITH BREATHING TREATMENT STILL NOTED WITH SOB. SARA NOTIFIED PATIENTS BP: 98/68 PULSE 88, O2 SATURATION 99%. ORDERS RECEIVED FOR CHEST XRAY, BREATHING TREATMENTS Q4 HOURS SCHEDULED. ORDERS NOTED AND CARRIED OUT WILL CONTINUE TO MONITOR.
--- NOTE | 2020-01-01 14:30 | NUR ---
RISK AND COMPLIANCE ANALYTICS DIRECTOR NOTES PATIENT WITH NOTED IMPROVED SOB. WILL CONTINUE TO MONITOR.
[2020-01-01] MEDS: ALBUTEROL FS 2.5 MG/3 ML VIAL.NEB NEB SCH ×3 (16:04→23:37)
[2020-01-01] MEDS: IPRATROPIUM NEB FS 0.5 MG/2.5 ML AMPUL.NEB NEB SCH ×3 (16:04→23:37)
[2020-01-01] MEDS: VANCOMYCIN 1 GM in IV D5W 250 ML IV SCH (16:20)
--- NOTE | 2020-01-01 17:36 | NUR ---
WEIGHT TESTER NOTES CALL RECEIVED FROM LAB REPORTING POSITIVE MRSA OF JOSE AGUIAR MADE AWARE ORDERS FOR ISOLATION AND BACTROBAN Q12 HOURS.
--- NOTE | 2020-01-01 18:58 | NUR ---
DEFECTIVE CIGARETTE SLITTER NOTES PATIENT IN BED RESTING NO SOB OR ACUTE DISTRESS NOTED. NO ACUTE CHANGES NOTED DURING SHIFT. ALL DUE MEDICATIONS ADMINISTER. ALL NEEDS MET. WILL ENDORSE TO PM SHIFT YARA.
--- NOTE | 2020-01-01 19:46 | NUR ---
MS RN OPENING NOTES PATIENT AWAKE IN BED UPON ARRIVAL. A/O X1. ON 2L NC. NO S/S OF SOB OR PAIN AT THIS TIME. IV PRESENT ON RIGHT FOREARM, SIZE 20, INTACT & PATENT. TELE MONITOR READING SINUS TACH, HEAR RATE 108. BED LOCKED, ALARM ON, SIDE RAILS X2, CALL LIGHT WITHIN REACH. WILL CONTINUE TO MONITOR.
[2020-01-01] MEDS: MUPIROCIN OINT 2% 22 GM TUBE SCH (21:54)
--- NOTE | 2020-01-01 22:20 | NUR ---
WAISTLINE JOINER LOCKSTITCH NOTES CONTACTED DR. GOMEZ ABOUT PATIENT'S LOW H/H AT 2150. PER DOCTOR'S ORDER, HOLD HEPARIN.
[2020-01-01] MEDS: risperiDONE 1 MG TABLET PO SCH (22:29)
[2020-01-02] VITALS: BP 104/58
[2020-01-02] MEDS: PIPERACILLIN /TAZOBACTAM 2.25 G in IV D5W 50 ML IV SCH ×4 (01:47→20:50)
[2020-01-02 04:00] VITALS: BP 107/52
[2020-01-02] MEDS: ALBUTEROL FS 2.5 MG/3 ML VIAL.NEB NEB SCH ×6 (04:20→23:22)
[2020-01-02] MEDS: IPRATROPIUM NEB FS 0.5 MG/2.5 ML AMPUL.NEB NEB SCH ×6 (04:20→23:22)
[2020-01-02 06:57] LABS: BASOPHILS # (AUTO) 0.1 /CMM (0.0-0.2); BASOPHILS % (AUTO) 1.1 % (0.0-2.0); EOSINOPHILS % (AUTO) 7.5 % (0.0-6.0); HEMATOCRIT 25 % (33-45); HEMOGLOBIN 7.8 g/dL (11.5-14.8); LYMPHOCYTES # (AUTO) 0.9 /CMM (0.8-4.8); LYMPHOCYTES % (AUTO) 17.5 % (20.0-44.0); MEAN CORPUSCULAR HGB CONC 32 g/dl (31.0-36.0); MEAN CORPUSCULAR VOLUME 85 fL (82-100); MONOCYTES # (AUTO) 0.5 /CMM (0.1-1.30); MONOCYTES % (AUTO) 9.3 % (2.0-12.0); NEUTROPHILS # (AUTO) 3.5 /CMM (1.8-8.9); NEUTROPHILS % (AUTO) 64.6 % (43.0-81.0); PLATELET COUNT (AUTO) 341 /CMM (150-450); RED BLOOD CELL COUNT(AUTO) 2.89 MIL/uL (4.0-5.2); WHITE BLOOD COUNT (AUTO) 5.4 K/uL (4.3-11.0)
--- NOTE | 2020-01-02 07:26 | NUR ---
TUBULAR RIVETER CLOSING NOTES PATIENT ASLEEP IN BED. A/O X1. ON 2L NC. NO S/S OF SOB OR PAIN AT THIS TIME. IV PRESENT ON RIGHT FOREARM, SIZE 20, INTACT & PATENT. TELE MONITOR READING SINUS RHYTHM, HEAR RATE 86. BED LOCKED, ALARM ON, SIDE RAILS X2, CALL LIGHT WITHIN REACH. WILL ENDORSE TO DAY SHIFT TO FOLLOW PLAN OF CARE.
--- NOTE | 2020-01-02 07:31 | NUR ---
MS/RN OPENING NOTE Patient received resting in bed, A/O x1, showing no signs of acute distress or SOB, saturating 95% on 2L NC. IV line is clean and intact s/l, hold IVF per MD. Bed is in lowest position. side railz x3 in upright position, safety, fall and aspiration precautions enforced. Cpntact Isolation precautions enforced. Will continue with plan of care.
[2020-01-02 07:32] LABS: CALCIUM, SERUM 8.4 mg/dL (8.5-10.1); CREATININE 1.2 mg/dL (0.6-1.3); POTASSIUM 3.6 mmol/L (3.5-5.1)
[2020-01-02 08:00] VITALS: BP 117/67
[2020-01-02] MEDS: ACIDOPHILUS/BULGARICUS 1 EACH TAB.CHEW PO SCH (08:56)
[2020-01-02] MEDS: MULTIVIT W/MINERALS 1 TAB TABLET PO SCH (08:57)
[2020-01-02] MEDS: ASCORBIC ACID 500 MG TABLET PO SCH (08:57)
[2020-01-02] MEDS: risperiDONE 0.25 MG TABLET PO SCH ×2 (08:57→17:07)
[2020-01-02] MEDS: DULOXETINE HCL 30 MG CAPSULE.DR PO SCH (08:57)
[2020-01-02] MEDS: DILTIAZEM HCL CD 240 MG PO SCH (09:00)
[2020-01-02] MEDS: METOPROLOL TARTRATE 50 MG TABLET PO SCH ×2 (09:00→21:17)
[2020-01-02] MEDS: HEPARIN SODIUM, PORCINE 5000 UNITS/1 ML VIAL SQ SCH ×2 (09:00→21:00)
--- NOTE | 2020-01-02 09:00 | NUR ---
MS/RN HOLD IVF HOLD IVF PER ENEDELIA ALVARADO
[2020-01-02] MEDS: PROSOURCE / PROSTAT (PYXIS) 30 ML UDC PO SCH (09:01)
[2020-01-02] MEDS: MUPIROCIN OINT 2% 22 GM TUBE SCH ×2 (09:01→21:17)
[2020-01-02] MEDS: PANTOPRAZOLE 40 MG TABLET.DR PO SCH (10:00)
--- NOTE | 2020-01-02 10:01 | NUR ---
MS/RN HELD HEPARIN HELD HEPARIN DUE TO LOW H&H
[2020-01-02 16:00] VITALS: BP_SYST 116; BP_SYST 117; BP_DIAS 67
[2020-01-02] MEDS: VANCOMYCIN 1 GM in IV D5W 250 ML IV SCH (16:58)
[2020-01-02] MEDS: ACETAMINOPHEN 325 MG TABLET PO PRN (17:07)
--- NOTE | 2020-01-02 19:16 | NUR ---
MS/RN CLOSING NOTE Patient received resting in bed, A/O x1, showing no signs of acute distress or SOB, saturating 95% on 2L NC. IV line is clean and intact s/l, hold IVF per MD. All patient needs met, all due meds given. Bed is in lowest position. side railz x3 in upright position, safety, fall and aspiration precautions enforced. Contact Isolation precautions enforced. Will endorse to security shift supervisor.
--- NOTE | 2020-01-02 19:46 | NUR ---
MS RN RECEIVED PATIENT IN BED A/O X 1, STABLE AND NOT IN DISTRESS. HOLD IVF PER M.D ENDORSE BY DAY SHIFT RN WILL CONTINUE TO MONITOR
[2020-01-02 20:00] VITALS: BP 97/40
[2020-01-02] MEDS: risperiDONE 1 MG TABLET PO SCH (21:26)
--- NOTE | 2020-01-02 21:30 | NUR ---
RELAYED M.D PT H/H IS LOW IF HE WANTS TO HOLD HEPARIN SQ. PER HOSPITALIST HOLD HEPARIN NOTED AND CARRIED OUT
[2020-01-02 21:39] VITALS: BP 97/40
--- NOTE | 2020-01-02 22:20 | NUR ---
RECEIVED NEW ORDERS FROM HOSPITALIST DR. JASON GONG. DISCONTINUE MED HEPARIN 5,000 UNITS SQ Q12HR READ BACK AND VERIFIED NOTED AND CARRIED OUT.
[2020-01-03] MEDS: PIPERACILLIN /TAZOBACTAM 2.25 G in IV D5W 50 ML IV SCH ×4 (02:02→19:43)
[2020-01-03] MEDS: IPRATROPIUM NEB FS 0.5 MG/2.5 ML AMPUL.NEB NEB SCH ×6 (03:16→23:31)
[2020-01-03] MEDS: ALBUTEROL FS 2.5 MG/3 ML VIAL.NEB NEB SCH ×6 (03:16→23:31)
--- NOTE | 2020-01-03 06:38 | NUR ---
PT SLEPT WELL, NEEDS ATTENDED AND ANTICIPATED, KEPT CLEAN, DRY AND COMFORTABLE AT ALL TIMES. AM CARE RENDERED. REPOSITION EVERY 2 HOURS. OFFLOAD HEELS AND ELBOWS AT ALL TIMES. NO APPARENT DISTRESS, PT STABLE. ON 2LPM VIA NC O2 SAT 95%. SAFETY MEASURES IN PLACE. WILL ENDORSE TO NEXT SHIFT POC.
[2020-01-03 07:05] LABS: BASOPHILS # (AUTO) 0.1 /CMM (0.0-0.2); BASOPHILS % (AUTO) 1.1 % (0.0-2.0); EOSINOPHILS % (AUTO) 7.1 % (0.0-6.0); HEMATOCRIT 24 % (33-45); HEMOGLOBIN 7.9 g/dL (11.5-14.8); LYMPHOCYTES % (AUTO) 20.7 % (20.0-44.0); MEAN CORPUSCULAR HGB CONC 32 g/dl (31.0-36.0); MEAN CORPUSCULAR VOLUME 84 fL (82-100); MONOCYTES # (AUTO) 0.6 /CMM (0.1-1.30); MONOCYTES % (AUTO) 11.6 % (2.0-12.0); NEUTROPHILS # (AUTO) 2.8 /CMM (1.8-8.9); NEUTROPHILS % (AUTO) 59.5 % (43.0-81.0); PLATELET COUNT (AUTO) 359 /CMM (150-450); RED BLOOD CELL COUNT(AUTO) 2.89 MIL/uL (4.0-5.2); WHITE BLOOD COUNT (AUTO) 4.7 K/uL (4.3-11.0)
[2020-01-03 07:15] LABS: CALCIUM, SERUM 8.1 mg/dL (8.5-10.1); CARBON DIOXIDE 26 mmol/L (21-32); CHLORIDE 113 mmol/L (98-107); CREATININE 1.1 mg/dL (0.6-1.3); GLUCOSE 118 mg/dL (74-106); POTASSIUM 3.5 mmol/L (3.5-5.1); SODIUM SERUM 150 mmol/L (136-145); UREA NITROGEN, BLOOD 25 mg/dL (7-18)
--- NOTE | 2020-01-03 07:32 | NUR ---
RN opening notes Patient received on 2l nasal cannula, no sob noted, patient shows no s/s of pain at this time. Remains A/o x1 and RFA 20 kcl is on hold at this time per doctors order. Bed at the lowest setting, call light within reach, side rails up x2.
[2020-01-03 08:00] VITALS: BP 144/79
[2020-01-03] MEDS: PANTOPRAZOLE 40 MG TABLET.DR PO SCH (08:17)
[2020-01-03] MEDS: MULTIVIT W/MINERALS 1 TAB TABLET PO SCH (08:17)
[2020-01-03] MEDS: METOPROLOL TARTRATE 50 MG TABLET PO SCH ×2 (08:17→22:13)
[2020-01-03] MEDS: DULOXETINE HCL 30 MG CAPSULE.DR PO SCH (08:17)
[2020-01-03] MEDS: ACIDOPHILUS/BULGARICUS 1 EACH TAB.CHEW PO SCH (08:17)
[2020-01-03] MEDS: ASCORBIC ACID 500 MG TABLET PO SCH (08:18)
[2020-01-03] MEDS: DILTIAZEM HCL CD 240 MG PO SCH (08:18)
[2020-01-03] MEDS: risperiDONE 0.25 MG TABLET PO SCH ×2 (08:18→16:31)
[2020-01-03] MEDS: MUPIROCIN OINT 2% 22 GM TUBE SCH ×2 (08:18→20:32)
[2020-01-03] MEDS: PROSOURCE / PROSTAT (PYXIS) 30 ML UDC PO SCH (08:19)
[2020-01-03] MEDS ORDERED: IV D5W 1,000 ML IV ONE (08:30)
[2020-01-03] MEDS ORDERED: D5 IV PRN (09:30)
[2020-01-03] MEDS ORDERED: NACL IV PRN (09:30)
[2020-01-03] MEDS ORDERED: POTASSIUM CHLORIDE IV PRN (09:30)
[2020-01-03] MEDS: VANCOMYCIN 1 GM in IV D5W 250 ML IV SCH (15:28)
[2020-01-03 16:20] VITALS: BP 120/63
--- NOTE | 2020-01-03 18:21 | NUR ---
rn closing notes Patient remains on 2l nasal cannula, no sob noted, patient shows no s/s of pain at this time. Infiltrated IV line and will try to put one again at this time. A/O x1 and non responsive. IVF D5W @ 75 ml per hour to be infused. Plan is to DC tomorrow back to SNF. Bed at the lowest setting, call light within reach, side rails up x2. Will give report to NOC RN for [facility]ARA bedside.
--- NOTE | 2020-01-03 19:00 | NUR ---
RN medsurg opening notes Received Pt from morning nurse. Pt is alert and orientedX1. Pt is resting in bed comfortably. Respiration is normal in 2 L NC. No SOB. No S/S of distress noted. Pt does not have IV sites due to infiltration. Will insert new IV sites soon. Pt's daughter in law at the bed side. Safety precautions is maintained. Bed at low position, brakes locked, side rails upX3 and call light is within reach. Will continue to monitor.
--- NOTE | 2020-01-03 19:32 | NUR ---
RN medsurg notes Inserted new IV lines at left hand # 22 with good blood returned. New IV sites is clean, intact, patent and flush without resistance. Will continue to monitor.
[2020-01-03 20:00] VITALS: BP 117/61
[2020-01-03 20:47] VITALS: BP 117/61
[2020-01-03 22:00] VITALS: BP 135/72
[2020-01-03] MEDS: risperiDONE 1 MG TABLET PO SCH (22:13)
[2020-01-03 23:02] VITALS: BP 135/76
[2020-01-04] MEDS: PIPERACILLIN /TAZOBACTAM 2.25 G in IV D5W 50 ML IV SCH ×2 (01:07→09:03)
[2020-01-04] MEDS: ALBUTEROL FS 2.5 MG/3 ML VIAL.NEB NEB SCH ×4 (03:32→14:33)
[2020-01-04] MEDS: IPRATROPIUM NEB FS 0.5 MG/2.5 ML AMPUL.NEB NEB SCH ×4 (03:32→14:33)
[2020-01-04 06:40] LABS: BASOPHILS % (AUTO) 0.9 % (0.0-2.0); EOSINOPHILS % (AUTO) 8.2 % (0.0-6.0); HEMATOCRIT 25 % (33-45); HEMOGLOBIN 7.9 g/dL (11.5-14.8); LYMPHOCYTES % (AUTO) 22.3 % (20.0-44.0); MEAN CORPUSCULAR HGB CONC 32 g/dl (31.0-36.0); MEAN CORPUSCULAR VOLUME 84 fL (82-100); MONOCYTES # (AUTO) 0.7 /CMM (0.1-1.30); MONOCYTES % (AUTO) 14.1 % (2.0-12.0); NEUTROPHILS # (AUTO) 2.5 /CMM (1.8-8.9); NEUTROPHILS % (AUTO) 54.5 % (43.0-81.0); PLATELET COUNT (AUTO) 345 /CMM (150-450); RED BLOOD CELL COUNT(AUTO) 2.97 MIL/uL (4.0-5.2); WHITE BLOOD COUNT (AUTO) 4.6 K/uL (4.3-11.0)
--- NOTE | 2020-01-04 06:48 | NUR ---
RN medsurg closing notes Pt is resting in bed comfortably. Pt is alert and orientedX1 and non verbal. Respiration is normal in 2 L NC. No SOB. No S/S of distress noted. IV sites at L hand # 22 is clean, intact, patent and infusing well. VS is stable. Afebrile. Routine meds were given as ordered. Turned and repositioned Q 2 HR. Skin care provided. Kept Pt clean, dry and comfortable. Contact precautions is maintained. Safety precautions is maintained. Bed at low position, brakes locked, side rails upX3 and call light is within reach. Will endorse to morning nurse for YARA.
[2020-01-04 06:52] LABS: ALBUMIN 1.7 g/dL (3.4-5.0); BILIRUBIN,TOTAL 0.3 mg/dL (0.2-1.0); CALCIUM, SERUM 8.1 mg/dL (8.5-10.1); MAGNESIUM 2.2 mg/dL (1.8-2.4); PHOSPHORUS 2.8 mg/dL (2.5-4.9); POTASSIUM 3.4 mmol/L (3.5-5.1); TOTAL PROTEIN, SERUM 6.2 g/dL (6.4-8.2)
[2020-01-04] MEDS ORDERED: POTASSIUM CHLORIDE 20 MEQ TAB.PRT.SR PO ONE (08:00)
[2020-01-04] MEDS ORDERED: ERGOCALCIFEROL (VITAMIN D 2) 50,000 UNIT CAPSULE PO SCH (09:00)
[2020-01-04] MEDS: MULTIVIT W/MINERALS 1 TAB TABLET PO SCH (09:03)
[2020-01-04] MEDS: ACIDOPHILUS/BULGARICUS 1 EACH TAB.CHEW PO SCH (09:03)
[2020-01-04] MEDS: MUPIROCIN OINT 2% 22 GM TUBE SCH (09:03)
[2020-01-04] MEDS: ASCORBIC ACID 500 MG TABLET PO SCH (09:03)
[2020-01-04] MEDS: PANTOPRAZOLE 40 MG TABLET.DR PO SCH (09:03)
[2020-01-04] MEDS: DILTIAZEM HCL CD 240 MG PO SCH (09:04)
[2020-01-04] MEDS: risperiDONE 0.25 MG TABLET PO SCH (09:04)
[2020-01-04] MEDS: DULOXETINE HCL 30 MG CAPSULE.DR PO SCH (09:04)
[2020-01-04] MEDS: METOPROLOL TARTRATE 50 MG TABLET PO SCH (09:05)
[2020-01-04 09:15] VITALS: BP 125/63
[2020-01-04] MEDS: PROSOURCE / PROSTAT (PYXIS) 30 ML UDC PO SCH (09:38)
[2020-01-04] MEDS ORDERED: VANC1FRO2 IV (10:41)
[2020-01-04] MEDS ORDERED: PIPE3.379 IV (10:41)
--- NOTE | 2020-01-04 15:00 | NUR ---
MS/RN NOTE THE PATIENT IS ALERT AND ORIENTED X1. DENIES SOB. RESPIRATION REGULAR AND UNLABORED. DENIES PAIN. THE PATIENT IN NO APPARENT DISTRESS. LEFT HAND G 22 PATENT AND SALINE LOCKED. DISCHARGE EDUCATION PROVIDED. REPORT GIVEN TO NURSE JURADO. PATIENT GOT PICKED UP BY AMBULANCE.
[2020-01-27] MEDS ORDERED: MERO500V21 IV (13:35)
[2020-01-27] MEDS ORDERED: ACET1OOV6 NEB (13:35)
[2020-01-27] MEDS ORDERED: NEOM15OI3 TP (13:35)
[2020-01-27] MEDS ORDERED: LACT-246 PO (13:35)
[2020-01-27] MEDS ORDERED: IPRA0.2S9 NEB (13:35)
[2020-01-27] MEDS ORDERED: RXVAN XX (13:35)
[2020-01-27] MEDS ORDERED: MAG30ORA PO (13:35)
[2020-01-27] MEDS ORDERED: HYDR28.32 TP (13:35)
[2020-01-27] MEDS ORDERED: CLOT15CR5 TP (13:35)
[2020-01-27] MEDS ORDERED: RXENO XX (13:35)
[2020-01-27] MEDS ORDERED: MAGN400O6 PO (13:35)
[2020-01-27] MEDS ORDERED: Metoprolol Tartrate Inj IVP (13:35)
[2020-01-27] MEDS ORDERED: FLUC100P4 IV (13:35)
[2020-01-27] MEDS ORDERED: ALBUT2 NEB (13:35)
[2020-01-27] MEDS ORDERED: Prosource PO (13:35)
== END 2020-01-04 15:00 | DRG 871 ==
LOC: ER 12:23 → TELE 14:15 → MED 01-02 09:05
PROVIDERS: ADMIT Nurse Practitioner Acute Care; ATTEND Nurse Practitioner Acute Care
DX: A41.9 Sepsis, unspecified organism (principal); E43 Unspecified severe protein-calorie malnutrition; G93.41 Metabolic encephalopathy; N17.0 Acute kidney failure with tubular necrosis; J18.9 Pneumonia, unspecified organism; N39.0 Urinary tract infection, site not specified; E87.0 Hyperosmolality and hypernatremia; F02.81 Dementia in other diseases classified elsewhere, unspecified severity, with behavioral disturbance; D63.8 Anemia in other chronic diseases classified elsewhere; F32.9 Major depressive disorder, single episode, unspecified; G30.9 Alzheimer's disease, unspecified; I25.10 Atherosclerotic heart disease of native coronary artery without angina pectoris; Z66 Do not resuscitate; F41.9 Anxiety disorder, unspecified; I10 Essential (primary) hypertension; R65.20 Severe sepsis without septic shock; Z95.5 Presence of coronary angioplasty implant and graft; E88.09 Other disorders of plasma-protein metabolism, not elsewhere classified; E86.9 Volume depletion, unspecified; Z68.22 Body mass index [BMI] 22.0-22.9, adult; M62.84 Sarcopenia; Z22.322 Carrier or suspected carrier of Methicillin resistant Staphylococcus aureus
CPT/HCPCS: 36415; 71045-TC; 80048-TC; 80053-TC; 80076-TC; 80202-TC; 81000-TC; 83605-TC; 83735-TC; 84100-TC; 84484-TC; 85025-TC; 85730-TC; 87040-TC; 87081-TC; 87086-TC; 94799-TC; G0378; J1644; J2543; J3370; J3480; J3490; J7030; J7060; J7070

== ENCOUNTER 2020-01-14 22:49 | Inpatient (IN) | payer MEDICARE, MEDICAID ==
[~2020-01-14] VITALS: Ht 157.5 cm; Wt 52.2 kg
[~2020-01-14 22:49] MED LIST changes: -AMIK250V8 IM; -ASCO-352 PO; +ASCO500T9 PO; -LACT-58 PO; +LACT1CAP71 PO; -LEVO500T75 PO; +PIPE3.379 IV; +VANC1FRO2 IV
--- NOTE | 2020-01-14 22:51 | NUR ---
[id number]. DESAT OF 74%. SOB. TACHYCARDIC. ALOC. RECTAL TEMP 102.6 ON ATB TX ALINE, PT CAME TO ER ON NON RBR, O2 SAT 90'S, PT ON MONITOR, PENDING MD SOTO
[2020-01-14] MEDS ORDERED: ALBUTEROL FS 2.5 MG/3 ML VIAL.NEB NEB ONE (23:00)
[2020-01-14] MEDS ORDERED: ACETAMINOPHEN 650 MG/SUPP.RECT RC ONE ×2 (23:00→23:14)
[2020-01-14] MEDS ORDERED: ALBUTEROL FS 2.5 MG/3 ML VIAL.NEB ONE (23:19)
[2020-01-14 23:26] LABS: BASOPHILS # (AUTO) 0.2 /CMM (0.0-0.2); BASOPHILS % (AUTO) 1.1 % (0.0-2.0); EOSINOPHILS % (AUTO) 0.1 % (0.0-6.0); HEMATOCRIT 27 % (33-45); HEMOGLOBIN 8.2 g/dL (11.5-14.8); LYMPHOCYTES # (AUTO) 1.7 /CMM (0.8-4.8); MEAN CORPUSCULAR HGB CONC 30 g/dl (31.0-36.0); MEAN CORPUSCULAR VOLUME 87 fL (82-100); MONOCYTES # (AUTO) 1.6 /CMM (0.1-1.30); MONOCYTES % (AUTO) 9.6 % (2.0-12.0); NEUTROPHILS # (AUTO) 13.4 /CMM (1.8-8.9); NEUTROPHILS % (AUTO) 79.2 % (43.0-81.0); PLATELET COUNT (AUTO) 742 /CMM (150-450); RED BLOOD CELL COUNT(AUTO) 3.11 MIL/uL (4.0-5.2); WHITE BLOOD COUNT (AUTO) 16.9 K/uL (4.3-11.0)
[2020-01-14] MEDS ORDERED: VANCOMYCIN 1 GM VIAL ONE (23:28)
[2020-01-14] MEDS ORDERED: PIPERACILLIN /TAZOBACTAM 3.375 G VIAL IV ONE (23:28)
[2020-01-14] MEDS ORDERED: PIPERACILLIN /TAZOBACTAM 3.375 G in IV D5W 50 ML IV ONE (23:30)
[2020-01-14] MEDS ORDERED: VANCOMYCIN 1 GM in IV D5W 250 ML IV ONE (23:30)
[2020-01-14 23:40] LABS: CALCIUM, SERUM 9.7 mg/dL (8.5-10.1); CARBON DIOXIDE 25 mmol/L (21-32); CHLORIDE 115 mmol/L (98-107); GLUCOSE 287 mg/dL (74-106); POTASSIUM 4.9 mmol/L (3.5-5.1); SODIUM SERUM 151 mmol/L (136-145); UREA NITROGEN, BLOOD 45 mg/dL (7-18)
--- NOTE | 2020-01-14 23:48 | NUR ---
URINE COLLECTED AND SENT TO LAB
[2020-01-14 23:53] LABS: ALANINE AMINOTRANSFERASE 29 U/L (12-78); ALKALINE PHOSPHATASE 70 U/L (46-116); ASPARTATE AMINOTRANSFERASE 28 U/L (15-37); B-TYPE NATRIURETIC PEPTIDE 792 PG/ML (0-125); BILIRUBIN,DIRECT 0.1 mg/dL (0.0-0.2); BILIRUBIN,TOTAL 0.3 mg/dL (0.2-1.0); TOTAL PROTEIN, SERUM 7.4 g/dL (6.4-8.2)
[2020-01-14 23:59] LABS: APPEARANCE,URINE Cloudy (CLEAR); BILIRUBIN,URINE Negative (NEGATIVE); BLOOD, URINE Small Ery/uL (NEGATIVE); COLOR,URINE Yellow (YELLOW); KETONES,URINE Negative (NEGATIVE); LEUKOCYTE ESTERASE ,URINE Large (NEGATIVE); NITRITE, URINE Negative (NEGATIVE); PROTEIN,URINE 100 mg/dl (NEGATIVE); UGLUCOSE Negative (NEGATIVE); UROBILINOGEN,URINE 0.2 EU/dL (0.2)
[2020-01-15] VITALS (42 sets, daily range): BP systolic 91–147; BP diastolic 43–103
[2020-01-15 00:09] LABS: WBC,URINE 51-80 /HPF (0-3)
[2020-01-15 00:10] LABS: BACTERIA,URINE 2+ /HPF (None Seen); SQUAMOUS EPITHELIAL CELL,UR Few /HPF (None Seen)
--- NOTE | 2020-01-15 00:14 | NUR ---
ER TALKING TO [facility] REGARDING PT ADMISSION.
[2020-01-15 00:25] LABS: ABG BASE EXCESS -3.2 mmol/L; ABG OXYGEN SATURATION 97.3 % (92.0-98.5); ABG PH 7.408 (7.350-7.450); ABG PO2 114.7 mmHg (75.0-100.0); AaDO2 275.7 mmHg; COHb 0.3 % (0.5-1.5); MetHb 0.4 % (0.0-1.5); O2Hb 96.6 % (94.0-97.0); SITE, ABG Left Brachial
--- NOTE | 2020-01-15 00:31 | NUR ---
[facility] 111-2
[2020-01-15] MEDS ORDERED: IV D5W 1,000 ML IV PRN (00:43)
--- NOTE | 2020-01-15 00:43 | NUR ---
REPORT GIVEN TO HARRY FLYNN FOR YARA PT WILL BE TRANSPORTED TO 1ST FLOOR
[2020-01-15] MEDS ORDERED: BISACODYL SUPP (10 MG) 10 MG/SUPP.RECT SUPP.RECT RC PRN (01:00)
[2020-01-15] MEDS ORDERED: ACETAMINOPHEN 325 MG TABLET PO PRN (01:00)
[2020-01-15] MEDS ORDERED: HYDROCODONE/APAP 5/325MG 1 EACH TABLET PO PRN (01:00)
[2020-01-15] MEDS ORDERED: ONDANSETRON HCL/PF 4 MG/2 ML VIAL IVP PRN (01:00)
[2020-01-15] MEDS ORDERED: MORPHINE SULFATE INJ 2 MG/ML DISP.SYRIN IV PRN (01:00)
[2020-01-15] MEDS ORDERED: LORAZEPAM 1 MG TABLET PO PRN (01:00)
[2020-01-15] MEDS ORDERED: MAGNESIUM HYDROXIDE 30 ML UDC PO PRN (01:00)
[2020-01-15] MEDS ORDERED: POLYVINYL ALCOHOL 15 ML BOTTLE EACHEYE PRN (01:00)
[2020-01-15] MEDS ORDERED: MAG HYDROX/AL HYDROX/SIMETH 30 ML UDC PO PRN (01:00)
--- NOTE | 2020-01-15 01:30 | NUR ---
[facility]/RN NOTES RECEIVED 84 YEARS OLD FEMALE PATIENT AT THIS TIME, WITH DX OF UTI, SEPSIS. PATIENT ALERT AND ORIENTED X0. EYES CLOSED. BREATHING EVEN AND UNLABORED. NO SOB NOTED. PLACED ON BIPAP, SATURATION 100%. IV SITES WITH NO S/S OF INFECTION/INFILTRATION. ON TELE WITH SINUS TACHY. BODY ASSESSMENT DONE PER PROTOCOL. DAUGHTER AT BED SIDE. SAFETY MAINTAINED. BED AT THE LOWEST LOCKED POSITION. CALL LIGHT WITHIN REACH. WILL CONTINUE TO MONITOR PER PLAN OF CARE.
--- NOTE | 2020-01-15 01:31 | NUR ---
PT TRANSPORTED TO 1ST FLOOR
--- NOTE | 2020-01-15 02:33 | NUR ---
Received new order from Dr. Mix to D/c thaddeus order. Noted and carried out.
--- NOTE | 2020-01-15 04:59 | NUR ---
PATIENT HEART RATE 141 NORMAL SINUS RHYTHM, HYPERVENTILATING AT THE RATE 35-40 BPM. REMAINED ON BIPAP WITH PRESCRIBED SETTINGS. SATURATING 100%. BP 147/62, TEMP 98.7, RESPIRATION 36. MORPHINE GIVEN ORDERED.CALLED ZAIDA WITH NEW ATIVAN ORDER PRESCRIBED. NOTED AND CARRIED OUT.
[2020-01-15] MEDS ORDERED: SCOPOLAMINE HBR 1 EA PATCH.TD72 TD ONE (05:14)
[2020-01-15] MEDS: SCOPOLAMINE HBR 1 EA PATCH.TD72 TD SCH (05:16)
[2020-01-15] MEDS ORDERED: LORAZEPAM INJ 2 MG/ML VIAL IV PRN (05:30)
[2020-01-15] MEDS ORDERED: PIPERACILLIN /TAZOBACTAM 3.375 G in IV D5W 50 ML IV SCH (06:00)
--- NOTE | 2020-01-15 06:57 | NUR ---
[facility]/RN NOTES PATIENT REMAINED ON BIPAP WITH PRESCRIBED SETTINGS, SATURATION 98%. BREATHING EVEN AND UNLABORED. ALERT AND ORIENTED TO HER BASE LINE. AWAKE, OPEN EYES NOW. STILL SINUS TACHY ON THE MONITOR RATE 138. MD AWARE. IN NO ACUTE DISTRESS. IV SITE WITH NO S/S OF INFECTION/INFILTRATION, WITH FLUIDS ORDERED. KEPT CLEAN AND DRY. NEEDS ATTENDANT. CALL LIGHT WITHIN REACH. SAFETY MAINTAINED. BED AT THE LOWEST LOCKED POSITION. WILL ENDORSE TO AM SHIFT NURSE FOR YARA.
--- NOTE | 2020-01-15 07:10 | NUR ---
RN INITIAL NOTE PATIENT IN BED, ON CONTINUOUS BIPAP. SATURATING WELL >90%. ON TELE MONITOR, ST AT 130-140s. NPO AT THIS TIME. HAS A RIGHT FA #20 WITH D5W AT 80 ML/HR. LEFT FINGER #22. WOUND CONSULT PENDING. BED LOCKED AND IN LOWEST POSITION. CALL LIGHT WITHIN REACH. WILL MONITOR CLOSELY.
[2020-01-15 08:03] LABS: BASOPHILS # (AUTO) 0.1 /CMM (0.0-0.2); BASOPHILS % (AUTO) 0.5 % (0.0-2.0); HEMATOCRIT 29 % (33-45); HEMOGLOBIN 8.9 g/dL (11.5-14.8); LYMPHOCYTES % (AUTO) 8.2 % (20.0-44.0); MEAN CORPUSCULAR HGB CONC 31 g/dl (31.0-36.0); MEAN CORPUSCULAR VOLUME 84 fL (82-100); MONOCYTES # (AUTO) 1.1 /CMM (0.1-1.30); MONOCYTES % (AUTO) 8.9 % (2.0-12.0); NEUTROPHILS % (AUTO) 82.4 % (43.0-81.0); PLATELET COUNT (AUTO) 589 /CMM (150-450); RED BLOOD CELL COUNT(AUTO) 3.43 MIL/uL (4.0-5.2); WHITE BLOOD COUNT (AUTO) 12.1 K/uL (4.3-11.0)
[2020-01-15 08:51] LABS: CALCIUM, SERUM 9.1 mg/dL (8.5-10.1); CARBON DIOXIDE 23 mmol/L (21-32); CHLORIDE 110 mmol/L (98-107); CREATININE 1.9 mg/dL (0.6-1.3); GLUCOSE 226 mg/dL (74-106); POTASSIUM 4.5 mmol/L (3.5-5.1); SODIUM SERUM 147 mmol/L (136-145); UREA NITROGEN, BLOOD 45 mg/dL (7-18)
[2020-01-15] MEDS: METOPROLOL TARTRATE 50 MG TABLET PO SCH ×2 (09:00→22:00)
[2020-01-15] MEDS: DULOXETINE HCL 30 MG CAPSULE.DR PO SCH (09:00)
[2020-01-15] MEDS ORDERED: DILTIAZEM HCL CD 240 MG PO SCH (09:00)
[2020-01-15] MEDS: MULTIVIT W/MINERALS 1 TAB TABLET PO SCH (09:00)
[2020-01-15] MEDS: risperiDONE 0.25 MG TABLET PO SCH ×3 (09:00→22:00)
[2020-01-15] MEDS: ASCORBIC ACID 500 MG TABLET PO SCH (09:00)
[2020-01-15] MEDS: PROSTAT (PYXIS) 30 ML UDC PO SCH (09:00)
[2020-01-15] MEDS: LACTOBACILLUS RHAMNOSUS GG 1 EACH CAP.SPRINK PO SCH (09:00)
[2020-01-15 09:04] LABS: ALANINE AMINOTRANSFERASE 34 U/L (12-78); ALBUMIN 1.9 g/dL (3.4-5.0); ALKALINE PHOSPHATASE 62 U/L (46-116); ASPARTATE AMINOTRANSFERASE 22 U/L (15-37); BILIRUBIN,TOTAL 0.3 mg/dL (0.2-1.0); MAGNESIUM 2.8 mg/dL (1.8-2.4); PHOSPHORUS 4.5 mg/dL (2.5-4.9); TOTAL PROTEIN, SERUM 7.4 g/dL (6.4-8.2)
[2020-01-15] MEDS: PIPERACILLIN /TAZOBACTAM 2.25 G in IV D5W 50 ML IV SCH ×3 (09:09→21:03)
--- NOTE | 2020-01-15 09:41 | NUR ---
RN NOTE DR MIX AT BEDSIDE, AWARE THAT PATIENT IS ST AT 140s. ORDERS TO CHECK EKG TROP AND LABS TOMORROW MORNING. D5W AT 80 ML/HR HAS BEEN DC'D WELL.
[2020-01-15] MEDS ORDERED: FEE PK DOSING 1 MIN EA MC ONE (10:35)
[2020-01-15] MEDS: IV D5/0.45 NACL 1,000 ML IV SCH ×2 (11:13→21:05)
--- NOTE | 2020-01-15 12:17 | NUR ---
RN NOTE PATIENT HAS A FEVER OF 102.7F. PER MD ATWOOD TO ORDER TYLENOL SUPPOSITORY. DR MIX MADE AWARE THAT PATIENT HAS A SUSTAINING HR OF >160s. PER MD ATWOOD TO ORDER DILTIAZEM IV AND GET HER HR <100
--- NOTE | 2020-01-15 12:19 | NUR ---
RN NOTE ORDERED A COOLING BLANKET MACHINE FOR THE PATIENT
[2020-01-15] MEDS: ACETAMINOPHEN 650 MG/SUPP.RECT RC PRN (12:27)
--- NOTE | 2020-01-15 12:54 | NUR ---
RN NOTE PER DR MIX, DILTIAZEM TITRATION AND SEND PATIENT TO ICU. ROSENDA, COVER CREASER, MADE AWARE
--- NOTE | 2020-01-15 13:15 | NUR ---
RT NOTE PLACED PATIENT ON NON REBREATHER AT 15LPM. TRANSPORTED TO ICU. PLACED BACK ON BIPAP WITH ORDERED SETTINGS WITH MEPILEX ON THE MASK.
--- NOTE | 2020-01-15 13:15 | NUR ---
RN NOTE TRANSFERRED PATIENT TO ICU VIA ACLS PROTOCOL. REPORT GIVEN AT BEDSIDE. FAMILY AT BEDSIDE, PATIENT VSS
--- NOTE | 2020-01-15 13:19 | NUR ---
received pt from [facility], s/p ST need Cardizem gtt titration, pt is very altered, responds to pain stimuli only, ST 140- 150, on bipap sat well, NPO, f/c and PICC line will be inserted, v/s stable, no pain, daughter at the bedside.
[2020-01-15] MEDS: DILTIAZEM HCL IV 125 MG in IV NS 0.9% 100 ML IV PRN (15:08)
[2020-01-15] MEDS: CLOTRIMAZOLE/BETAMETASONE DIPROPIONATE 15 GM TUBE TP SCH ×2 (15:26→17:23)
[2020-01-15 15:28] LABS: ABG BASE EXCESS -1.4 mmol/L; ABG PCO2 28.1 mmHg (35.0-45.0); ABG PH 7.495 (7.350-7.450); ABG PO2 96.4 mmHg (75.0-100.0); AaDO2 156.5 mmHg; COHb 0.3 % (0.5-1.5); MetHb 0.6 % (0.0-1.5); O2Hb 96.1 % (94.0-97.0); SITE, ABG Right Radial; VENT MODE, BG ST 15/5 40%
[2020-01-15] MEDS ORDERED: HEPARIN SODIUM, PORCINE 5000 UNITS/1 ML VIAL SQ SCH (16:00)
--- NOTE | 2020-01-15 16:42 | NUR ---
pt is resting in the bed, lethargic, does not follow commands, ST, on Cardizem gtt at 6mg, on Bipap at 40% fio2, sat well, NPO, v/s stable, no pain, pt cleaned, changed and repositioned q2hrs, daughter at the bedside.
--- NOTE | 2020-01-15 17:14 | NUR ---
INITIAL DUPLEX VENOUS LOWER EXT EXAM SHOWED POSITIVE FOR DVT AT LEFT CFV. RN INFORMED OF PRELIMINARY FINDING.
[2020-01-15] MEDS: ENOXAPARIN SODIUM 60 MG/0.6 ML DISP.SYRIN SQ SCH (18:35)
--- NOTE | 2020-01-15 20:00 | NUR ---
RETAIL SERVICE REPRESENTATIVE Received patient lethargic non verbal non interactive.Tachypneic RR 36 and tachycardic HR 143. On Cardizem gtt infusing at 10 mg/hr and titrated up to 15 mg/hr max dose.Respiration even and unlabored.Bipap on 15/04,Rate 16,FIO2 40%.NPO status with IVF maintenance infusing to ERIKA PICC LINE and site intact.FC to gravity drainage.Will turn and reposition Q 2 hrs.No distress noted. Continue monitoring.
--- NOTE | 2020-01-15 20:08 | NUR ---
RCVD PT ON BIPAP 15/5 ,RATE 16 , FIO2 40%. PT TOLERATING THE SETTINGS . PT IS LETHARGIC. SKIN INTACT. NO RESPIRATORY DISTRESS NOTED AT THIS TIME. BIPAP PLUGGED INTO RED OUTLET. ALARMS ON AND AUDIBLE. WILL CONTINUE TO MONITOR THE PT T/O THE SHIFT.
[2020-01-15] MEDS: VANCOMYCIN 500 MG in IV D5W 100 ML IV SCH (23:00)
[2020-01-16] VITALS (78 sets, daily range): BP systolic 93–132; BP diastolic 21–69
[2020-01-16] MEDS: DILTIAZEM HCL IV 125 MG in IV NS 0.9% 100 ML IV PRN (00:36)
--- NOTE | 2020-01-16 04:00 | NUR ---
BALLROOM DANCE INSTRUCTOR e Patient in no distress.Remains Tachycardic 130"s and tachypneic RR 30's Cardizem gtt max out.Bed bath rendered and complete linens changed.Turned and repositioned. IVF infusing well.All due medications administered.Patient DNR/DNI status.Continue Monitoring.
[2020-01-16 04:55] LABS: BASOPHILS # (AUTO) 0.1 /CMM (0.0-0.2); BASOPHILS % (AUTO) 0.9 % (0.0-2.0); EOSINOPHILS % (AUTO) 1.3 % (0.0-6.0); HEMATOCRIT 24 % (33-45); HEMOGLOBIN 7.5 g/dL (11.5-14.8); LYMPHOCYTES # (AUTO) 1.1 /CMM (0.8-4.8); LYMPHOCYTES % (AUTO) 14.7 % (20.0-44.0); MEAN CORPUSCULAR HGB CONC 32 g/dl (31.0-36.0); MEAN CORPUSCULAR VOLUME 85 fL (82-100); MONOCYTES # (AUTO) 0.8 /CMM (0.1-1.30); MONOCYTES % (AUTO) 10.2 % (2.0-12.0); NEUTROPHILS # (AUTO) 5.7 /CMM (1.8-8.9); NEUTROPHILS % (AUTO) 72.9 % (43.0-81.0); PLATELET COUNT (AUTO) 469 /CMM (150-450); RED BLOOD CELL COUNT(AUTO) 2.79 MIL/uL (4.0-5.2); WHITE BLOOD COUNT (AUTO) 7.8 K/uL (4.3-11.0)
[2020-01-16] MEDS: PIPERACILLIN /TAZOBACTAM 2.25 G in IV D5W 50 ML IV SCH ×3 (05:00→21:00)
[2020-01-16 05:10] LABS: ALANINE AMINOTRANSFERASE 26 U/L (12-78); ALBUMIN 1.6 g/dL (3.4-5.0); ALKALINE PHOSPHATASE 57 U/L (46-116); ASPARTATE AMINOTRANSFERASE 30 U/L (15-37); BILIRUBIN,TOTAL 0.3 mg/dL (0.2-1.0); CALCIUM, SERUM 8.2 mg/dL (8.5-10.1); CARBON DIOXIDE 24 mmol/L (21-32); CHLORIDE 114 mmol/L (98-107); CREATININE 1.7 mg/dL (0.6-1.3); GLUCOSE 157 mg/dL (74-106); MAGNESIUM 2.7 mg/dL (1.8-2.4); PHOSPHORUS 3.2 mg/dL (2.5-4.9); POTASSIUM 3.7 mmol/L (3.5-5.1); SODIUM SERUM 149 mmol/L (136-145); TOTAL PROTEIN, SERUM 6.4 g/dL (6.4-8.2); UREA NITROGEN, BLOOD 42 mg/dL (7-18)
[2020-01-16] MEDS: IV D5/0.45 NACL 1,000 ML IV SCH (07:01)
--- NOTE | 2020-01-16 07:05 | NUR ---
TRAUMA COUNSELLOR RECEIVED PT ON BED, LETHARGIC , NON VERBAL, DOES NOT FOLLOW COMMAND, ON BIPAP, TOLEIANG CURRENT SETTING WELL, NO DISTRESS NOTED , ON TELE ST HR IN 140'S, AVALOS DRAINING TO GRAVITY, PT IS NPO, R WRIST AND L UPPER ARM PICC LINE SITE , CLEAN,DRY AND INTACT, D51/2 NS AT 100CC/HR AND CARDIZEM GTT AT 15MG/HR RUNNING ,SR UP x3, CALL LIGHT WITHIN EASY REACH, BED LOCKED AND IN LOWEST POSITION, CONTINUE TO MONITOR .
--- NOTE | 2020-01-16 08:00 | NUR ---
RN NOTES DR LANDAVERDE NOTIFED REGARDING T=110.4 AXILLARY . NO NEW ORDER GIVEN
[2020-01-16] MEDS: LACTOBACILLUS RHAMNOSUS GG 1 EACH CAP.SPRINK PO SCH (08:23)
[2020-01-16] MEDS: METOPROLOL TARTRATE 50 MG TABLET PO SCH ×2 (08:23→21:56)
[2020-01-16] MEDS: DULOXETINE HCL 30 MG CAPSULE.DR PO SCH (08:23)
[2020-01-16] MEDS: ASCORBIC ACID 500 MG TABLET PO SCH (08:24)
[2020-01-16] MEDS: PROSTAT (PYXIS) 30 ML UDC PO SCH (08:24)
[2020-01-16] MEDS: risperiDONE 0.25 MG TABLET PO SCH ×3 (08:24→21:57)
[2020-01-16] MEDS: MULTIVIT W/MINERALS 1 TAB TABLET PO SCH (08:24)
[2020-01-16] MEDS: CLOTRIMAZOLE/BETAMETASONE DIPROPIONATE 15 GM TUBE TP SCH ×2 (08:25→17:23)
[2020-01-16] MEDS: Z GUARD REMEDY 2 OZ OINT TP PRN (08:26)
[2020-01-16] MEDS: ACETAMINOPHEN 650 MG/SUPP.RECT RC PRN (08:41)
--- NOTE | 2020-01-16 12:23 | NUR ---
RT NOTE Pt rec'd on bipap on noted settings as charted. Pt shows no signs of resp distress or sob. Alarms are set and audible. Bipap plugged into red outlet. Yesi castorena bedside. Will continue to monitor. Addendum: 01/16/20 at 1224 by MONIQUE SIMON RT Amended: Links added.
--- NOTE | 2020-01-16 13:00 | NUR ---
RN NOTES PT TOLERATING BIPAP SETTING WELL, NO DISTRESS NOTED, SUPPORTIVE FAMILY AT THE BEDSIDE
[2020-01-16] MEDS: IV D5/0.45 NACL 1,000 ML IV PRN (16:27)
--- NOTE | 2020-01-16 18:36 | NUR ---
RN NOTES VSS STABLE, NO DISTRESS NOTED, PT STILL ON BIPAP, SR UP X3, CALL LIGHT WITHIN EASY REACH, BED LOCKED AND IN LOWEST POSITION, WILL ENDORSE TO WAITER WAITRESS NURSE FOR CONTINUITY OF CARE .
[2020-01-16] MEDS: ENOXAPARIN SODIUM 60 MG/0.6 ML DISP.SYRIN SQ SCH (19:08)
--- NOTE | 2020-01-16 19:25 | NUR ---
RT NOTES PT RECEIVED ON BIPAP W/ MEPIPLEX ON MASK ON CHARTED SETTINGS. NO SIGNS OF DISTRESS. ALARMS ARE SET AND AUDIBLE. BIPAP CONNECTED TO RED OUTLET. AMBUBAG AT BEDSIDE. WILL CONT TO MONITOR. Addendum: 01/16/20 at 2035 by ODILIA MIDDLETON RT Amended: Links added.
--- NOTE | 2020-01-16 20:00 | NUR ---
INSPECTION SUPERVISOR Received patient lethargic non verbal not following commands.Respiration even and unlabored. Maintained on BIPAP with prescribed settings.Well tolerated.SPO2 99%.ST 130's.Normotensive. Remains NPO status with maintenance iv infusing via ERIKA PICC LINE.Site intact.No distress noted.FC to gravity drainage.Will turnand reposition Q 2hrs for comfort and skin issues.Continue monitoring.
[2020-01-16] MEDS: VANCOMYCIN 500 MG in IV D5W 100 ML IV SCH (23:04)
[2020-01-17] VITALS (32 sets, daily range): BP systolic 93–130; BP diastolic 47–78
[2020-01-17] MEDS: IV D5/0.45 NACL 1,000 ML IV PRN ×3 (02:10→22:14)
--- NOTE | 2020-01-17 04:00 | NUR ---
NUDE MODEL Patient status remains unchanged.VSS.ST 120's-130's at times goes to 110's. AM care done.All due medications administered.All needs anticipated and met. Turned and repositioned.
[2020-01-17 04:52] LABS: CALCIUM, SERUM 8.1 mg/dL (8.5-10.1); CREATININE 1.1 mg/dL (0.6-1.3)
[2020-01-17] MEDS: PIPERACILLIN /TAZOBACTAM 2.25 G in IV D5W 50 ML IV SCH ×3 (05:00→20:34)
[2020-01-17 05:12] LABS: POTASSIUM 2.8 mmol/L (3.5-5.1)
[2020-01-17] MEDS: POTASSIUM CL. PREMIX PERIPHER. 50 ML IV SCH ×4 (06:11→09:41)
--- NOTE | 2020-01-17 06:25 | NUR ---
Patient am labs resulted with K+ level 2.8.Called to Maximilian Alfaro NP with orders and carried out.To give KCL 40 meq IV.1st dose KCL 10 meq infusing.
--- NOTE | 2020-01-17 07:20 | NUR ---
RN NOTE: Received patient in bed, asleep and on continuous bipap. NPO status. Nonverbal at this time. NO facial grimacing noted. Patient was comfortably lying on the bed with HOB elevated. Skin warm to touch. Bed alarmed and locked at all times. (L) UA PICC line was noted in placed with D5HNS @100ml/hr. Spangler catheter was noted with yellow urine draining to gravity. Will continue to monitor the patient's condition.
[2020-01-17] MEDS: DULOXETINE HCL 30 MG CAPSULE.DR PO SCH (08:22)
[2020-01-17] MEDS: LACTOBACILLUS RHAMNOSUS GG 1 EACH CAP.SPRINK PO SCH (08:22)
[2020-01-17] MEDS: METOPROLOL TARTRATE 50 MG TABLET PO SCH ×2 (08:23→21:31)
[2020-01-17] MEDS: ASCORBIC ACID 500 MG TABLET PO SCH (08:23)
[2020-01-17] MEDS: PROSTAT (PYXIS) 30 ML UDC PO SCH (08:23)
[2020-01-17] MEDS: MULTIVIT W/MINERALS 1 TAB TABLET PO SCH (08:23)
[2020-01-17] MEDS: risperiDONE 0.25 MG TABLET PO SCH ×3 (08:23→21:32)
[2020-01-17] MEDS: CLOTRIMAZOLE/BETAMETASONE DIPROPIONATE 15 GM TUBE TP SCH ×2 (08:24→16:50)
--- NOTE | 2020-01-17 08:31 | NUR ---
RN NOTE: Received a telephone call from butch Sims and gave her an update regarding the patient's condition.
[2020-01-17] MEDS ORDERED: POTASSIUM CL. PREMIX PERIPHER. 50 ML IV SCH (09:57)
--- NOTE | 2020-01-17 10:54 | NUR ---
off bipap on 3lpm n/c
--- NOTE | 2020-01-17 11:00 | NUR ---
RN NOTE: Patient's daughter, Bethany was at the bedside and patient was removed from the Bipap and switched to O2 3L/min via NC saturating 98-100%.
[2020-01-17 12:38] LABS: IRON, SERUM 13 ug/dl (50-175); TOTAL IRON BINDING CAPACITY 111 ug/dl (250-450)
[2020-01-17 13:35] LABS: FERRITIN 1349 ng/mL (8-388)
[2020-01-17 15:36] LABS: BASOPHILS % (AUTO) 0.4 % (0.0-2.0); EOSINOPHILS % (AUTO) 2.3 % (0.0-6.0); HEMATOCRIT 23 % (33-45); LYMPHOCYTES # (AUTO) 0.9 /CMM (0.8-4.8); LYMPHOCYTES % (AUTO) 13.1 % (20.0-44.0); MEAN CORPUSCULAR HGB CONC 31 g/dl (31.0-36.0); MEAN CORPUSCULAR VOLUME 87 fL (82-100); MONOCYTES # (AUTO) 0.7 /CMM (0.1-1.30); MONOCYTES % (AUTO) 9.8 % (2.0-12.0); NEUTROPHILS # (AUTO) 5.3 /CMM (1.8-8.9); NEUTROPHILS % (AUTO) 74.4 % (43.0-81.0); PLATELET COUNT (AUTO) 356 /CMM (150-450); RED BLOOD CELL COUNT(AUTO) 2.64 MIL/uL (4.0-5.2); WHITE BLOOD COUNT (AUTO) 7.2 K/uL (4.3-11.0)
--- NOTE | 2020-01-17 16:00 | NUR ---
RN NOTE: Dr. Clayton was informed about the patient's hgb 7.0. No overt bleeding noted. MD with no new order.
[2020-01-17] MEDS: ACETAMINOPHEN 650 MG/SUPP.RECT RC PRN (16:49)
[2020-01-17] MEDS: Z GUARD REMEDY 2 OZ OINT TP PRN (16:50)
--- NOTE | 2020-01-17 18:30 | NUR ---
RN NOTE: Rechecked patient's temperature axillary 98.6F.
--- NOTE | 2020-01-17 19:35 | NUR ---
RN NOTE: Bedside report was given to Madi, RN for continuity of care. Patient was soundly asleep in bed, HOB elevated with bed alarmed and locked at all times. Remained on NPO status.
[2020-01-17] MEDS: ENOXAPARIN SODIUM 60 MG/0.6 ML DISP.SYRIN SQ SCH (20:35)
--- NOTE | 2020-01-17 20:45 | NUR ---
CAREER DEVELOPMENT DIRECTOR NOTES - LOVENOX SCHEDULED DOSE FOR LOVENOX 60MG, HOWEVER LATEST H/H 7.0,TRENDING DOWN. PATIENT POSITIVE FOR PARTIAL DVT OF LEFT COMMON FEMORAL VEIN. PIA NAVAL ARCHITECT NOTIFIED REGARDING SCHEDULED DOSE OF LOVENOX, LATEST LABS, AND POSITIVE DVT RESULT. PER PIA, OKAY TO GIVE LOVENOX. WILL ADMINISTER DUE MEDS AND CONTINUE TO CLOSELY MONITOR THE PATIENT
[2020-01-17 21:05] LABS: OCCULT BLOOD STOOL NEGATIVE (NEGATIVE)
[2020-01-17] MEDS: VANCOMYCIN 500 MG in IV D5W 100 ML IV SCH (22:14)
[2020-01-18] VITALS (49 sets, daily range): BP systolic 90–162; BP diastolic 41–114
[2020-01-18] MEDS: ERGOCALCIFEROL (VITAMIN D 2) 50,000 UNIT CAPSULE PO SCH (01:00)
[2020-01-18] MEDS: SCOPOLAMINE HBR 1 EA PATCH.TD72 TD SCH (02:06)
[2020-01-18] MEDS: PIPERACILLIN /TAZOBACTAM 2.25 G in IV D5W 50 ML IV SCH (04:17)
[2020-01-18 05:11] LABS: CREATININE 0.8 mg/dL (0.6-1.3)
[2020-01-18 05:19] LABS: OCCULT BLOOD STOOL POSITIVE (NEGATIVE)
[2020-01-18] MEDS ORDERED: ALENDRONATE 70 MG TABLET PO SCH (06:00)
--- NOTE | 2020-01-18 07:20 | NUR ---
RN NOTE: Received patient in bed, asleep and was placed on O2 3L/min via NC and was saturating well. No respiratory distress was noted overnight per clinical services assistant nurse's report and tolerated it well. Patient remained on NPO status. Will f/u with the hospitalist today regarding the patient's daughter Bethany's concern for the PO medications. HOB elevated. Bed alarmed and locked at all times. (L) UA PICC line was noted in placed with D5HNS @100ml/hr. Spangler catheter was noted with yellow urine draining to gravity. Will continue to monitor the patient's condition. AM labs will be reported to the hospitalist today.
[2020-01-18] MEDS: IV D5/0.45 NACL 1,000 ML IV PRN (07:33)
[2020-01-18] MEDS: ACETAMINOPHEN 650 MG/SUPP.RECT RC PRN ×3 (08:23→23:50)
[2020-01-18] MEDS: POTASSIUM CL. PREMIX PERIPHER. 50 ML IV SCH ×5 (08:31→13:26)
[2020-01-18] MEDS: ASCORBIC ACID 500 MG TABLET PO SCH (09:00)
[2020-01-18] MEDS: LACTOBACILLUS RHAMNOSUS GG 1 EACH CAP.SPRINK PO SCH (09:00)
[2020-01-18] MEDS: PROSTAT (PYXIS) 30 ML UDC PO SCH (09:00)
[2020-01-18] MEDS: MULTIVIT W/MINERALS 1 TAB TABLET PO SCH (09:00)
[2020-01-18] MEDS: METOPROLOL TARTRATE 50 MG TABLET PO SCH ×2 (09:00→22:00)
[2020-01-18] MEDS: DULOXETINE HCL 30 MG CAPSULE.DR PO SCH (09:00)
[2020-01-18] MEDS: risperiDONE 0.25 MG TABLET PO SCH ×3 (09:00→22:00)
[2020-01-18] MEDS: CLOTRIMAZOLE/BETAMETASONE DIPROPIONATE 15 GM TUBE TP SCH ×2 (09:09→17:40)
--- NOTE | 2020-01-18 11:00 | NUR ---
RN NOTE: Patient was seen by the speech therapist at the bedside and swallow evaluation was performed. As per speech therapist, the patient was not ready for anything through her mouth. Will keep the patient NPO and speech therapist will follow-up again by tomorrow.
[2020-01-18] MEDS ORDERED: FEE PK DOSING 1 MIN EA MC ONE (11:03)
--- NOTE | 2020-01-18 11:20 | NUR ---
RN NOTE: Mouth care was rendered to the patient, daughter in law was present at the bedside. Patient was on distress, tachypneic, tachycardic and desaturated up to the low 80's with O2 3L/min. Called RT Peter and patient was placed back on the Bipap machine. Family was at the bedside. Dr. Morgan and Dr. Clayton were both informed about the situation. A STAT Chest X-ray and ABG was ordered with pending results.
[2020-01-18 11:34] LABS: ABG BASE EXCESS -7.9 mmol/L; ABG OXYGEN SATURATION 99.2 % (92.0-98.5); ABG PCO2 29.2 mmHg (35.0-45.0); ABG PH 7.369 (7.350-7.450); ABG PO2 321.3 mmHg (75.0-100.0); AaDO2 362.5 mmHg; COHb 0.3 % (0.5-1.5); MetHb 0.7 % (0.0-1.5); O2Hb 98.2 % (94.0-97.0); SITE, ABG Right Radial; VENT MODE, BG BIPAP 15/5
--- NOTE | 2020-01-18 11:35 | NUR ---
RN NOTE: ABG result was reported to Dr. Morgan. No new order given at this time. Patient remained on Bipap. Family present at the bedside.
--- NOTE | 2020-01-18 11:40 | NUR ---
RT Pt had increased WOB and was diaphoretic, pt was placed on BiPAP. BiPAP alarms are set and audible and is plugged into red outlet. Addendum: 01/18/20 at 1413 by ARLEY VOSS RT Amended: Links added.
[2020-01-18 11:54] LABS: BASOPHILS # (AUTO) 0.1 /CMM (0.0-0.2); BASOPHILS % (AUTO) 0.7 % (0.0-2.0); HEMATOCRIT 26 % (33-45); LYMPHOCYTES # (AUTO) 2.3 /CMM (0.8-4.8); LYMPHOCYTES % (AUTO) 16.4 % (20.0-44.0); MEAN CORPUSCULAR HGB CONC 31 g/dl (31.0-36.0); MEAN CORPUSCULAR VOLUME 84 fL (82-100); MONOCYTES # (AUTO) 1.1 /CMM (0.1-1.30); NEUTROPHILS # (AUTO) 10.1 /CMM (1.8-8.9); NEUTROPHILS % (AUTO) 72.9 % (43.0-81.0); PLATELET COUNT (AUTO) 568 /CMM (150-450); WHITE BLOOD COUNT (AUTO) 13.8 K/uL (4.3-11.0)
[2020-01-18] MEDS: IV D5W 1,000 ML IV PRN (12:06)
[2020-01-18] MEDS: GENTAMICIN 80 MG in IV D5W 100 ML IV SCH (12:17)
--- NOTE | 2020-01-18 12:43 | NUR ---
RN NOTE: STAT Chest X-ray result were reported to Dr. Morgan and Dr. Clayton. No further orders were given at this time. Will continue to monitor the patient's condition. Family was at the bedside and was given update regarding the patient's chest-x-ray result.
[2020-01-18 13:51] LABS: OCCULT BLOOD STOOL NEGATIVE (NEGATIVE)
--- NOTE | 2020-01-18 16:41 | NUR ---
RN NOTE: Patient's daughter, Bethany was at the bedside and she was askin to speak with the doctor. Dr. Clayton was made aware of it and MD was given the cellphone number of the daughter Bethany [phone].
[2020-01-18] MEDS: ALBUTEROL FS 2.5 MG/3 ML VIAL.NEB NEB PRN ×2 (17:34→23:02)
[2020-01-18] MEDS: ACETYLCYSTEINE 10% SOLN 400 MG/4 ML VIAL NEB SCH ×2 (17:35→23:03)
[2020-01-18] MEDS: IPRATROPIUM NEB FS 0.5 MG/2.5 ML AMPUL.NEB NEB PRN ×2 (17:35→23:02)
[2020-01-18] MEDS: Z GUARD REMEDY 2 OZ OINT TP PRN (18:04)
--- NOTE | 2020-01-18 18:05 | NUR ---
RN NOTE: RT Green at the bedside titrated the bipap based on Dr. Morgan's note. Patient was still noted with episodes of agitation and daughter Lizy was at the bedside. Patient was mumbling and daughter Bethany was trying to communicate with the patient. As per Bethany, the patient said that she wanted to be with her mother. Patient still noted with a fever and cooling measures were implemented with Tylenol suppository PRN.
[2020-01-18] MEDS: PIPERACILLIN /TAZOBACTAM 3.375 G in IV D5W 50 ML IV SCH ×2 (18:36→23:30)
[2020-01-18] MEDS: ENOXAPARIN SODIUM 60 MG/0.6 ML DISP.SYRIN SQ SCH (19:55)
--- NOTE | 2020-01-18 22:34 | NUR ---
RN NOTE: Paged CHRISTIANO Mix that the patient was very agitated and her Lopressor has been held due to the failed swallow evaluation. Patient was still noted with fever despite getting a Tylenol suppository PRN with cooling measures implementation. CHRISTIANO Mix gave an order for a Haldol 2.5mg IM x1 to control the agitation. ROSITA Miramontes was aware of the patient's current condition at this time. RT Loyola gave breathing treatment at this time and will put the patient on Bipap post breathing treatment. Will continue to monitor the patient's condition.
[2020-01-18] MEDS ORDERED: HALOPERIDOL LACTATE INJ 5 MG/ML VIAL IM ONE (23:00)
[2020-01-19] VITALS (16 sets, daily range): BP systolic 92–141; BP diastolic 44–74
--- NOTE | 2020-01-19 | NUR ---
RN NOTE: Patient has been up during the night and did not sleep. Episodes of agitation was noted, went to the bedside to comfort the patient. Patient was heard mumbling and remained on bipap at this time.
[2020-01-19] MEDS: IV D5W 1,000 ML IV PRN (01:42)
[2020-01-19] MEDS ORDERED: HALOPERIDOL LACTATE INJ 5 MG/ML VIAL IM ONE (03:00)
--- NOTE | 2020-01-19 03:02 | NUR ---
RN NOTE: CHRISTIANO Mix was given an update regarding the patient's being unable to relax and still noted with agitation. case monitor still showed tachycardia, and patient was kept on Bipap FiO2 40%. CHRISTIANO Mix with an order to hold IV fluid at this time and a Haldol 2.5mg IM x1 again. Order, noted and carried out. ROSITA Miramontes was also made aware.
--- NOTE | 2020-01-19 04:00 | NUR ---
RN NOTE: Patient was given a bed bath and as the bipap was removed on the patient's face, it was noted with a small abrasion on the (R) lower chin area measuring 0.5 x 0.5 cm, red in color. Patient has been very agitated in the bed and was noted moving her mouth out from the Bipap mask. Patient was provided with a mepilex on the surrounding of the bipap mask, but due to the patient's behavior and her bipap mask was getting out in place from the mepilex dressing. Wound cleansing was done and applied mepilex on the area.
[2020-01-19 04:27] LABS: CALCIUM, SERUM 8.5 mg/dL (8.5-10.1); CREATININE 0.8 mg/dL (0.6-1.3); POTASSIUM 3.4 mmol/L (3.5-5.1)
--- NOTE | 2020-01-19 05:00 | NUR ---
RN NOTE: Patient was noted calming down at this time, but still with a few episodes of getting agitated, but not as bad at the beginning of the shift. Continued with the bipap at this time.
--- NOTE | 2020-01-19 05:30 | NUR ---
Received bedside report by ariana FLYNN Received patient in no acute distress in bed. patient is a/o x 1- opens eyes to name, but is non verbal. Tolerating BIPAP with setting 15/5, rate 16, fio2 40%, ps 10. Placed on telemetry with sinus tachy on the monitor. Spangler catheter in place and clean dry intact and patent with yellow urine. ERIKA TLC PICC line is clean dry intact and patent with ns @ 5ml/hr (tko). bed in low lock position with rials up x 2, call light within reach and all safety measures ensured and carried out. will continue to monitor patient.
--- NOTE | 2020-01-19 05:30 | NUR ---
RN NOTE: Patient was transported to [facility] Room 105 and bedside report was given to RINA Terrazas for continuity of care. Patient was kept on Bipap 15/5 rate 16 FIO2 40%. Patient still noted with mild grade fever with tylenol suppository administered per MD order and cooling measures at this time. Called and spoke with Bethany, daughter and gave her an update regarding the patient's condition overnight and during transfer. She was aware of the transfer to the [facility].
[2020-01-19] MEDS: PIPERACILLIN /TAZOBACTAM 3.375 G in IV D5W 50 ML IV SCH ×3 (06:27→17:03)
[2020-01-19 07:29] LABS: BASOPHILS # (AUTO) 0.1 /CMM (0.0-0.2); BASOPHILS % (AUTO) 0.7 % (0.0-2.0); EOSINOPHILS % (AUTO) 1.8 % (0.0-6.0); HEMATOCRIT 23 % (33-45); HEMOGLOBIN 7.1 g/dL (11.5-14.8); LYMPHOCYTES # (AUTO) 1.4 /CMM (0.8-4.8); LYMPHOCYTES % (AUTO) 10.3 % (20.0-44.0); MEAN CORPUSCULAR HGB CONC 31 g/dl (31.0-36.0); MEAN CORPUSCULAR VOLUME 84 fL (82-100); MONOCYTES # (AUTO) 1.2 /CMM (0.1-1.30); MONOCYTES % (AUTO) 8.6 % (2.0-12.0); NEUTROPHILS # (AUTO) 10.9 /CMM (1.8-8.9); NEUTROPHILS % (AUTO) 78.6 % (43.0-81.0); PLATELET COUNT (AUTO) 478 /CMM (150-450); WHITE BLOOD COUNT (AUTO) 13.9 K/uL (4.3-11.0)
[2020-01-19] MEDS: ALBUTEROL FS 2.5 MG/3 ML VIAL.NEB NEB PRN (07:41)
[2020-01-19] MEDS: ACETYLCYSTEINE 10% SOLN 400 MG/4 ML VIAL NEB SCH ×3 (07:41→23:08)
--- NOTE | 2020-01-19 08:00 | NUR ---
[facility] RN NOTE RECEIVED PATIENT IN BED WITH BIPAP MACHINE ON. PATIENT IS AWAKE AND ALERT. RESPONDS TO VERBAL COMMAND. PATIENT HAS AVALOS CATHETER DRAINING CLOUDY YELLOW URINE. ON TELE MONITOR ST HR 111BPM. BOTH LEGS CONTRACTED, ON NPO STATUS AT THIS TIME. BED LOCKED ON LOW POSITION. WILL CONT TO MONITOR.
[2020-01-19] MEDS: POTASSIUM CL. PREMIX PERIPHER. 50 ML IV SCH ×4 (08:23→12:19)
[2020-01-19] MEDS: DULOXETINE HCL 30 MG CAPSULE.DR PO SCH (08:40)
[2020-01-19] MEDS: METOPROLOL TARTRATE 50 MG TABLET PO SCH ×2 (08:40→21:27)
[2020-01-19] MEDS: LACTOBACILLUS RHAMNOSUS GG 1 EACH CAP.SPRINK PO SCH (08:40)
[2020-01-19] MEDS: PROSTAT (PYXIS) 30 ML UDC PO SCH (08:40)
[2020-01-19] MEDS: ASCORBIC ACID 500 MG TABLET PO SCH (08:41)
[2020-01-19] MEDS: MULTIVIT W/MINERALS 1 TAB TABLET PO SCH (08:41)
[2020-01-19] MEDS: CLOTRIMAZOLE/BETAMETASONE DIPROPIONATE 15 GM TUBE TP SCH ×2 (08:41→16:47)
[2020-01-19] MEDS: MORPHINE SULFATE INJ 2 MG/ML DISP.SYRIN IV PRN ×2 (08:49→22:00)
[2020-01-19] MEDS ORDERED: IV D5/0.45 NACL 1,000 ML IV ONE (09:00)
[2020-01-19] MEDS: risperiDONE 0.25 MG TABLET PO SCH ×3 (09:00→21:27)
--- NOTE | 2020-01-19 09:00 | NUR ---
[facility] RNNOTE DR LANDAVERDE AT BEDSIDE NOTIFIED THAT CAMPOS C\O PAIN OK TO GIVE MORPHINE AND START IVF D51\2 NS AT 75 ML PER HOUR ,STILL NPO DID NOT PASS SWALLOW EVAL
[2020-01-19] MEDS: NEOMY SULF/BACITRAC ZN/POLY 15 GM TUBE TP SCH ×2 (10:08→11:52)
--- NOTE | 2020-01-19 11:00 | NUR ---
[facility] RN NOTE PER DR PRICE ON TO PLACE ON 3L NC SAT 95% AT THIS TIME .WILL CONT TO MONITOR FAMILY AT BEDSIDE
[2020-01-19] MEDS: GENTAMICIN 80 MG in IV D5W 100 ML IV SCH (12:37)
--- NOTE | 2020-01-19 12:42 | NUR ---
[facility] RN NOTE ALL NEEDS ATTENDED WITH FAMILY AT BEDSIDE ,NO SOB AT THIS TIME. WILL MONITOR
--- NOTE | 2020-01-19 14:00 | NUR ---
[facility] RN NOTES DR LANDAVERDE NOTIFIED THAT DAUGHTER DOES NOT WANT TO ENTER NGT AT THIS TIME. STATED SHE WILL SPEAK WITH OTHER MEMBERS OF THE FAMILY ABOUT NGT. POSSIBLE INSERTION TOMORROW. WILL FOLLOW UP.
[2020-01-19] MEDS: SOD FERRIC GLUC 125 MG in IV NS 0.9% 100 ML IV SCH (14:06)
--- NOTE | 2020-01-19 17:48 | NUR ---
[facility] RN NOTES DR LANDAVERDE NOTIFIED THAT THE HGB IS 7.1. OK TO HOLD LOVENOX AT THIS TIME. WILL FOLLOW UP.
--- NOTE | 2020-01-19 18:25 | NUR ---
[facility] RN NOTE CONT ON IVF ORDERED, ON 3L NC HR 120 AT THIS TIME, FAMILY AWARE , ALL NEEDS ATTENDED,WILL CONT TO MONITOR
[2020-01-19] MEDS: ENOXAPARIN SODIUM 60 MG/0.6 ML DISP.SYRIN SQ SCH (18:26)
--- NOTE | 2020-01-19 19:20 | NUR ---
[facility] RN OPENING NOTE RECEIVED PATIENT IN BED WITH FAMILY AT BEDSIDE AT THIS TIME. A&O X1. CAMBODIAN SPEAKING. ON O2 3L VIA NC. ON IV HYDRATION RUNNING AT 100 ML/HR VIA ERIKA PICC LINE. ON AVALOS CATH. URINE IS YELLOW AND CLOUDY IN APPEARANCE. IN NO APPARENT DISTRESS NOTED AT THIS TIME. CALL LIGHT IS WITHIN REACH. BED IS LOWERED AND LOCKED FOR SAFETY. WILL CONTINUE TO MONITOR.
[2020-01-19] MEDS: ACETAMINOPHEN 650 MG/SUPP.RECT RC PRN (19:58)
[2020-01-20] VITALS (13 sets, daily range): BP systolic 111–158; BP diastolic 48–86
--- NOTE | 2020-01-20 01:46 | NUR ---
RN NOTE PER DAUGHTER HAM, FAMILY IS STILL UNCERTAIN OF NGT PLACEMENT AT THIS TIME. PATIENT IS KEPT NPO. WILL CONTINUE TO MONITOR.
[2020-01-20] MEDS: ACETAMINOPHEN 650 MG/SUPP.RECT RC PRN ×2 (05:58→19:50)
[2020-01-20 06:08] LABS: BASOPHILS % (AUTO) 0.5 % (0.0-2.0); EOSINOPHILS % (AUTO) 4.1 % (0.0-6.0); LYMPHOCYTES # (AUTO) 1.2 /CMM (0.8-4.8); LYMPHOCYTES % (AUTO) 11.9 % (20.0-44.0); MEAN CORPUSCULAR HGB CONC 32 g/dl (31.0-36.0); MEAN CORPUSCULAR VOLUME 83 fL (82-100); MONOCYTES # (AUTO) 0.9 /CMM (0.1-1.30); MONOCYTES % (AUTO) 9.1 % (2.0-12.0); NEUTROPHILS # (AUTO) 7.7 /CMM (1.8-8.9); NEUTROPHILS % (AUTO) 74.4 % (43.0-81.0); PLATELET COUNT (AUTO) 471 /CMM (150-450); RED BLOOD CELL COUNT(AUTO) 2.44 MIL/uL (4.0-5.2); WHITE BLOOD COUNT (AUTO) 10.3 K/uL (4.3-11.0)
[2020-01-20 06:12] LABS: HEMATOCRIT 20 % (33-45)
[2020-01-20 06:19] LABS: HEMOGLOBIN 6.4 g/dL (11.5-14.8)
--- NOTE | 2020-01-20 06:30 | NUR ---
RN NOTE RECEIVED CRITICAL LAB RESULTS OF HEMOGLOBIN 6.[address] MENENDEZ MADE AWARE. AWAITING FOR ORDERS.
[2020-01-20 06:31] LABS: CALCIUM, SERUM 8.7 mg/dL (8.5-10.1); CREATININE 0.8 mg/dL (0.6-1.3); POTASSIUM 3.5 mmol/L (3.5-5.1)
[2020-01-20 06:33] LABS: BAND % (MANUAL) 6 % (0.0-5.0); EOSINOPHILS % (MANUAL) 2 % (0-4); LYMPHOCYTES % (MANUAL) 12 % (16-48); MONOCYTES % (MANUAL) 7 % (0-11.0); MYELOCYTES % 1 % (0-0); NEUTROPHILS % (MANUAL) 72 (42-76)
--- NOTE | 2020-01-20 06:45 | NUR ---
RN NOTE RECEIVED ORDERS TO TRANSFUSE 1 UNIT OF PRBC. WILL ENDORSE TO AM SHIFT RN FOR CONTINUATION OF CARE.
--- NOTE | 2020-01-20 07:05 | NUR ---
RN CLOSING NOTE PATIENT IS IN BED RESTING. ON 3L O2 VIA NC. IN NO APPARENT DISTRESS NOTED AT THIS TIME. PATIENT REMAINED STABLE THROUGHOUT THE NIGHT. BIPAP OFF. O2 SAT REMAINED > 95%. CALL LIGHT IS WITHIN REACH. PATIENT IS KEPT CLEAN, DRY, AND COMFORTABLE. ENDORSED TO AM SHIFT RN FOR CONTINUATION OF CARE.
[2020-01-20] MEDS: ACETYLCYSTEINE 10% SOLN 400 MG/4 ML VIAL NEB SCH ×3 (07:33→23:59)
[2020-01-20] MEDS: ALBUTEROL FS 2.5 MG/3 ML VIAL.NEB NEB PRN ×2 (07:33→15:24)
--- NOTE | 2020-01-20 08:00 | NUR ---
MS FLYNN AM NOTES RECEIVED PATIENT IN BED,AWAKE A&O X1. GREEK SPEAKING. ON O2 3L VIA NC. WITH ERIKA PICC LINE INTACT AND PATENT. WITH AVALOS CATH. URINE IS YELLOW AND CLOUDY IN APPEARANCE. IN NO APPARENT DISTRESS NOTED AT THIS TIME. CALL LIGHT IS WITHIN REACH. BED IS LOWERED AND LOCKED FOR SAFETY. WILL CONTINUE TO MONITOR.
[2020-01-20] MEDS: ASCORBIC ACID 500 MG TABLET PO SCH (09:00)
[2020-01-20] MEDS: PROSTAT (PYXIS) 30 ML UDC PO SCH (09:00)
[2020-01-20] MEDS: risperiDONE 0.25 MG TABLET PO SCH ×3 (09:00→22:00)
[2020-01-20] MEDS: NEOMY SULF/BACITRAC ZN/POLY 15 GM TUBE TP SCH ×2 (09:00→11:16)
[2020-01-20] MEDS: LACTOBACILLUS RHAMNOSUS GG 1 EACH CAP.SPRINK PO SCH (09:00)
[2020-01-20] MEDS: MULTIVIT W/MINERALS 1 TAB TABLET PO SCH (09:00)
[2020-01-20] MEDS: METOPROLOL TARTRATE 50 MG TABLET PO SCH ×2 (09:00→22:00)
[2020-01-20] MEDS: DULOXETINE HCL 30 MG CAPSULE.DR PO SCH (09:00)
--- NOTE | 2020-01-20 10:00 | NUR ---
PT'S DAUGHTER,PEPE IS AT THE BEDSIDE AND SHE REFUSED TO HAVE HER MOM UNDERGO NGT INSERTION STATING SHE DOESN'T WANT HER MOM TO SUFFER FURTHER.CHECKED PT'S LATEST TEMP WHICH IS 99.F.WILL MONITOR.
[2020-01-20] MEDS: CLOTRIMAZOLE/BETAMETASONE DIPROPIONATE 15 GM TUBE TP SCH ×2 (11:17→19:07)
--- NOTE | 2020-01-20 11:32 | NUR ---
NEOSPORIN OINTMENT HAS BEEN SCANNED 5X AND WON'T GO THROUGH
[2020-01-20] MEDS: GENTAMICIN 80 MG in IV D5W 100 ML IV SCH (12:34)
[2020-01-20] MEDS: SOD FERRIC GLUC 125 MG in IV NS 0.9% 100 ML IV SCH (13:41)
--- NOTE | 2020-01-20 15:12 | NUR ---
TRANSFUSING FIRST UNIT PRBC WITH STABLE V/S. AFEBRILE WITH NO S/S OF PAIN OR DISTRESS.WILL MONITOR FOR ANY ADVERSE REACTION.
--- NOTE | 2020-01-20 16:38 | NUR ---
NO ACTIVE BLEEDING NOTED.WITH ONGOING BLOOD TRANSFUSION WITH NO ADVERSE REACTION NOTED.FAMILY AT THE BEDSIDE.WITH STABLE V/S.
[2020-01-20] MEDS: ENOXAPARIN SODIUM 60 MG/0.6 ML DISP.SYRIN SQ SCH (16:55)
--- NOTE | 2020-01-20 18:57 | NUR ---
COMPLETED TRANSFUSING 1 UNIT PRBC WITH NO ADVERSE REACTION.STABLE V/S.FAMILY AT BEDSIDE.WILL MONITOR
--- NOTE | 2020-01-20 18:58 | NUR ---
MADE ONE BM WITH NO ACTIVE BLEEDING NOTED.
--- NOTE | 2020-01-20 19:05 | NUR ---
RN NOTE RECEIVED PT IN BED IN SEMI MAGALLON'S POSITION ALERT AND ORIENTED X 1. PT STATUS POST BLOOD TRANSFUSION. NO REACTIONS NOTED BUT WILL CONTINUE TO MONITOR. WITH ELEVATE HEART RATE NOTED 120S. AFEBRILE. FAMILY AT BEDSIDE. PLAN OF CARE DISCUSSED. AVALOS CATHETER IN PLACE AND DRAINING CLEAR YELLOW URINE. CALL LIGHT WITHIN REACH. BED ALARM ON. SAFETY MEASURES IN PLACE.
--- NOTE | 2020-01-20 22:55 | NUR ---
RN NOTE PT HEART RATE RANGING FROM 130-160S. ALSO PT MOANING IN PAIN. NOTIFIED DR. MENENDEZ TO CHANGE CURRENT LOPRESSOR PO TO IV PER PHARMACY RECOMENDATION AND ADMINISTER MORPHINE 2MG IV Q4H PRN.
[2020-01-20] MEDS: MORPHINE SULFATE INJ 2 MG/ML DISP.SYRIN IV PRN (23:13)
[2020-01-21] VITALS: BP 138/72
[2020-01-21] MEDS: SCOPOLAMINE HBR 1 EA PATCH.TD72 TD SCH (00:27)
[2020-01-21] MEDS: MORPHINE SULFATE INJ 2 MG/ML DISP.SYRIN IV PRN ×2 (03:36→22:40)
[2020-01-21 04:00] VITALS: BP 151/83
[2020-01-21 06:38] LABS: BASOPHILS % (AUTO) 0.3 % (0.0-2.0); EOSINOPHILS % (AUTO) 1.9 % (0.0-6.0); HEMATOCRIT 28 % (33-45); HEMOGLOBIN 9.3 g/dL (11.5-14.8); LYMPHOCYTES # (AUTO) 1.7 /CMM (0.8-4.8); LYMPHOCYTES % (AUTO) 13.2 % (20.0-44.0); MEAN CORPUSCULAR HGB CONC 33 g/dl (31.0-36.0); MEAN CORPUSCULAR VOLUME 85 fL (82-100); NEUTROPHILS # (AUTO) 9.8 /CMM (1.8-8.9); NEUTROPHILS % (AUTO) 76.6 % (43.0-81.0); PLATELET COUNT (AUTO) 531 /CMM (150-450); RED BLOOD CELL COUNT(AUTO) 3.34 MIL/uL (4.0-5.2); WHITE BLOOD COUNT (AUTO) 12.7 K/uL (4.3-11.0)
--- NOTE | 2020-01-21 07:10 | NUR ---
RN NOTE ENDORSED TO MORNING RN FLYNN FOR CONTINUITY OF CARE.
[2020-01-21] MEDS ORDERED: IV 1/2NS 1000 ML 1,000 ML IV PRN (07:13)
--- NOTE | 2020-01-21 07:30 | NUR ---
MEDICATION AIDE NOTES PATIENT IN BED EYES CLOSED , EASY TO AROUSE. NO ACUTE DISTRESS NOTED. BREATHING UNLABORED. NO SOB NOTED. IV ACCESS PATENT AND INTACT, NO REDNESS OR SWELLING NOTED. SAFETY MEASURES IN PLACE. CALL LIGHT WITHIN REACH. WILL CONTINUE TO MONITOR ACCORDINGLY.
[2020-01-21 07:59] LABS: BILIRUBIN,TOTAL 0.3 mg/dL (0.2-1.0); CREATININE 0.8 mg/dL (0.6-1.3); MAGNESIUM 1.6 mg/dL (1.8-2.4); PHOSPHORUS 4.3 mg/dL (2.5-4.9); POTASSIUM 3.1 mmol/L (3.5-5.1)
[2020-01-21 08:00] VITALS: BP 130/72
[2020-01-21 08:05] LABS: ALBUMIN 1.4 g/dL (3.4-5.0)
--- NOTE | 2020-01-21 08:12 | NUR ---
MS RN NOTES RECEIVED CRITICAL LABORATORY RESULT ALBUMIN 1.[address] BALTA LANDAVERDE, NO NEW ORDER MADE AT THIS TIME.
--- NOTE | 2020-01-21 08:35 | NUR ---
BONE TENDER NOTES PATIENT SEEN AND EVALUATED BY DR BALTA LANDAVERDE WITH NEW ORDER TO DISCONTINUE IVF 1/2 @ 50 MLS /HR NS CHANGE TO D5 1/2 NS @ 75 MLS /HR, ORDER CLARIFIED AND READ BACK, NOTED AND CARRIED OUT.
[2020-01-21] MEDS: IV D5/0.45 NACL 1,000 ML IV PRN (08:50)
[2020-01-21] MEDS: LACTOBACILLUS RHAMNOSUS GG 1 EACH CAP.SPRINK PO SCH (08:50)
[2020-01-21] MEDS: METOPROLOL TARTRATE 50 MG TABLET PO SCH ×2 (08:50→21:24)
[2020-01-21] MEDS: DULOXETINE HCL 30 MG CAPSULE.DR PO SCH (08:50)
[2020-01-21] MEDS: risperiDONE 0.25 MG TABLET PO SCH ×3 (08:51→21:24)
[2020-01-21] MEDS: MULTIVIT W/MINERALS 1 TAB TABLET PO SCH (08:51)
[2020-01-21] MEDS: ASCORBIC ACID 500 MG TABLET PO SCH (08:51)
[2020-01-21] MEDS: PROSTAT (PYXIS) 30 ML UDC PO SCH (08:51)
[2020-01-21] MEDS: NEOMY SULF/BACITRAC ZN/POLY 15 GM TUBE TP SCH ×2 (08:54→08:55)
[2020-01-21] MEDS: CLOTRIMAZOLE/BETAMETASONE DIPROPIONATE 15 GM TUBE TP SCH ×2 (08:57→17:09)
[2020-01-21] MEDS: ACETYLCYSTEINE 10% SOLN 400 MG/4 ML VIAL NEB SCH ×3 (09:32→23:30)
[2020-01-21] MEDS: POTASSIUM CL. PREMIX PERIPHER. 50 ML IV SCH ×4 (10:45→15:57)
[2020-01-21] MEDS: GENTAMICIN 80 MG in IV D5W 100 ML IV SCH (11:46)
[2020-01-21 12:00] VITALS: BP 132/82
--- NOTE | 2020-01-21 14:00 | NUR ---
MS RN NOTES ST EVALUATION DONE TODAY, RELAYED RECOMMENDATION TO DR BALTA PASTRANA AWAITING FOR FURTHER ORDER.
[2020-01-21] MEDS: SOD FERRIC GLUC 125 MG in IV NS 0.9% 100 ML IV SCH (14:41)
[2020-01-21 16:00] VITALS: BP 138/84
[2020-01-21] MEDS: Magnesium 1GM/D5W 100ML PREMIX 100 ML IV SCH ×2 (17:06→18:15)
--- NOTE | 2020-01-21 18:40 | NUR ---
DRIVABILITY TECHNICIAN NOTES PATIENT IN BED EYES CLOSED ,RESPOND TO VERBAL AND TACTILE STIMULI. NO ACUTE DISTRESS NOTED. BREATHING UNLABORED. NO SOB NOTED. IV ACCESS PATENT AND INTACT, NO REDNESS OR SWELLING NOTED. NEEDS ATTENDED AND ANTICIPATED. SAFETY MEASURES IN PLACE. CALL LIGHT WITHIN REACH. WILL ENDORSE TO NIGHT NURSE FOR CONTINUITY OF CARE.
[2020-01-21] MEDS: ENOXAPARIN SODIUM 60 MG/0.6 ML DISP.SYRIN SQ SCH (18:53)
--- NOTE | 2020-01-21 19:25 | NUR ---
RN OPENING NOTE RECEIVED PATIENT IN BED RESTING WITH HOB ELEVATED. A&O X1. GREENLANDIC SPEAKING. BREATHING EVEN AND NON LABORED. ON 02 3L VIA NC. TACHYCARDIC. IN NO APPARENT DISTRESS NOTED AT THIS TIME. BED IS LOWERED TO LOW POSITION FOR SAFETY. CALL LIGHT IS WITHIN EASY REACH. WILL CONTINUE TO MONITOR.
[2020-01-21 20:00] VITALS: BP 139/79
[2020-01-22] VITALS: BP 115/89
[2020-01-22] MEDS: METOPROLOL TARTRATE INJ 5 MG/5 ML AMPUL IVP PRN ×2 (00:06→06:05)
[2020-01-22] MEDS: ACETAMINOPHEN 650 MG/SUPP.RECT RC PRN (00:07)
[2020-01-22 04:00] VITALS: BP 122/86
[2020-01-22] MEDS: IV D5/0.45 NACL 1,000 ML IV PRN (04:55)
[2020-01-22 06:35] LABS: BASOPHILS # (AUTO) 0.2 /CMM (0.0-0.2); BASOPHILS % (AUTO) 0.8 % (0.0-2.0); EOSINOPHILS % (AUTO) 0.3 % (0.0-6.0); HEMATOCRIT 33 % (33-45); HEMOGLOBIN 10.2 g/dL (11.5-14.8); LYMPHOCYTES # (AUTO) 2.8 /CMM (0.8-4.8); LYMPHOCYTES % (AUTO) 12.5 % (20.0-44.0); MEAN CORPUSCULAR HGB CONC 31 g/dl (31.0-36.0); MEAN CORPUSCULAR VOLUME 85 fL (82-100); MONOCYTES # (AUTO) 1.1 /CMM (0.1-1.30); NEUTROPHILS % (AUTO) 81.4 % (43.0-81.0); PLATELET COUNT (AUTO) 744 /CMM (150-450); RED BLOOD CELL COUNT(AUTO) 3.84 MIL/uL (4.0-5.2); WHITE BLOOD COUNT (AUTO) 22.1 K/uL (4.3-11.0)
--- NOTE | 2020-01-22 06:52 | NUR ---
RN CLOSING NOTE PATIENT REMAINED STABLE THROUGHOUT THE NIGHT. NO SIGNIFICANT CHANGES NOTED. PRN LOPRESSOR MED GIVEN ORDERED FOR HR > 140. MED. TOLERATED WELL. PATIENT IS KEPT CLEAN, DRY, AND COMFORTABLE. ALL NEEDS ATTENDED AND MET. WILL ENDORSE TO AM SHIFT RN FOR CONTINUATION OF CARE.
--- NOTE | 2020-01-22 07:46 | NUR ---
RN OPENING NOTES RECEIVED PATIENT IN BED, RESTING COMFORTABLE. AWAKE, VERBALLY RESPONSIVE TO SOMEONE WHO SPEAKS LIBERIAN. IN APPARENT DISTRESS NOTED. ON OXYGEN VIA NASAL CANNULA @3L SATURATING WELL. NO SOB NOTED. IV ACCESS ON ERIKA PICC LINE INTACT, PATENT AND FLUSHED WELL WITH D5 1/2 NS RUNNING @75 ML/HR WITH REMAINING 900ML ON THE BAG. AVALOS CATHETER DRAINING YELLOW COLOR URINE VIA GRAVITY WITH 150 ML ON THE BAG. SAFETY PRECAUTIONS IN PLACED, BED IN LOWEST POSITION AND LOCKED. CALL LIGHT WITHIN REACH. WILL CONTINUE TO MONITOR.
[2020-01-22 08:00] VITALS: BP 118/72
[2020-01-22] MEDS: ALBUTEROL FS 2.5 MG/3 ML VIAL.NEB NEB PRN ×3 (08:00→23:54)
[2020-01-22] MEDS: ACETYLCYSTEINE 10% SOLN 400 MG/4 ML VIAL NEB SCH ×3 (08:00→23:54)
[2020-01-22] MEDS: DULOXETINE HCL 30 MG CAPSULE.DR PO SCH (08:51)
[2020-01-22] MEDS: LACTOBACILLUS RHAMNOSUS GG 1 EACH CAP.SPRINK PO SCH (08:51)
[2020-01-22] MEDS: METOPROLOL TARTRATE 50 MG TABLET PO SCH ×2 (08:51→22:07)
[2020-01-22] MEDS: MULTIVIT W/MINERALS 1 TAB TABLET PO SCH (08:52)
[2020-01-22] MEDS: risperiDONE 0.25 MG TABLET PO SCH ×3 (08:52→22:06)
[2020-01-22] MEDS: PROSTAT (PYXIS) 30 ML UDC PO SCH (08:52)
[2020-01-22] MEDS: ASCORBIC ACID 500 MG TABLET PO SCH (08:52)
--- NOTE | 2020-01-22 08:52 | NUR ---
RN NOTES HELD LACTOBACILLUS, CYMBALTA, LOPRESSOR, PROSTAT, RISPERDAL, THERAGRAN M, VITC. PATIENT IS ON NPO DIAGNOSIS.UNABLE TO FOLLOW DIRECTIONS & UNABLE TO SWALLOW MEDICINE SAFELY.
[2020-01-22] MEDS: NEOMY SULF/BACITRAC ZN/POLY 15 GM TUBE TP SCH (09:33)
[2020-01-22] MEDS: CLOTRIMAZOLE/BETAMETASONE DIPROPIONATE 15 GM TUBE TP SCH ×2 (09:33→17:00)
[2020-01-22 09:42] LABS: ALANINE AMINOTRANSFERASE 39 U/L (12-78); ALBUMIN 1.7 g/dL (3.4-5.0); ALKALINE PHOSPHATASE 94 U/L (46-116); ASPARTATE AMINOTRANSFERASE 31 U/L (15-37); BILIRUBIN,TOTAL 0.5 mg/dL (0.2-1.0); CALCIUM, SERUM 9.8 mg/dL (8.5-10.1); CARBON DIOXIDE 21 mmol/L (21-32); CHLORIDE 112 mmol/L (98-107); GLUCOSE 161 mg/dL (74-106); MAGNESIUM 2.6 mg/dL (1.8-2.4); POTASSIUM 4.1 mmol/L (3.5-5.1); SODIUM SERUM 148 mmol/L (136-145); TOTAL PROTEIN, SERUM 6.7 g/dL (6.4-8.2); UREA NITROGEN, BLOOD 11 mg/dL (7-18)
[2020-01-22 12:00] VITALS: BP 103/51
[2020-01-22] MEDS: GENTAMICIN 80 MG in IV D5W 100 ML IV SCH (12:11)
[2020-01-22] MEDS: SOD FERRIC GLUC 125 MG in IV NS 0.9% 100 ML IV SCH (13:21)
[2020-01-22] MEDS: IPRATROPIUM NEB FS 0.5 MG/2.5 ML AMPUL.NEB NEB PRN ×2 (15:29→23:54)
[2020-01-22 16:00] VITALS: BP 126/61
[2020-01-22] MEDS: ENSURE ENLIVE CHOC 237 ML CAN PO SCH (17:00)
[2020-01-22] MEDS ORDERED: MEROPENEM 500 MG in IV NS 0.9% 50 ML IV SCH (19:00)
[2020-01-22] MEDS ORDERED: FEE PK DOSING 1 MIN EA MC ONE (19:14)
--- NOTE | 2020-01-22 19:20 | NUR ---
RN OPENING NOTES RECEIVED PATIENT AWAKE IN BED WITH FAMILY AT BEDSIDE. A/OX1-2. NO SIGNS OF DISTRESS OR DISCOMFORT. BREATHING EVEN AND UNLABORED. ON 3LPM O2 VIA NC. ON TELE MONITOR WITH ST 139 NOTED. HAS ERIKA PICC WITH D5 1/2 NS INFUSING, PATENT AND INTACT. HAS F/C INTACT DRAINING CLOUDY YELLOW FLUID. BED IN LOW LOCKED POSITION WITH SIDE RAILS X2. CALL LIGHT WITHIN REACH. WILL CONTINUE TO MONITOR.
[2020-01-22] MEDS ORDERED: MEROPENEM 500 MG in IV NS 0.9% 50 ML IV ONE (19:30)
--- NOTE | 2020-01-22 19:43 | NUR ---
RN CLOSING NOTES PATIENT REMAINED STABLE THROUGHOUT THE DAY. NO SIGNIFICANT CHANGES THROUGHOUT THE SHIFT. ST EVAL WAS DONE IN AM AND UPGRADED TO PUREED AND NECTAR LIQUIDS WITH ENSURE TID. PATIENT IS KEPT CLEAN, DRY, AND COMFORTABLE. ALL NEEDS ATTENDED AND MET. ENDORSED TO PM RN FOR YARA.
[2020-01-22] MEDS: ENOXAPARIN SODIUM 60 MG/0.6 ML DISP.SYRIN SQ SCH (19:58)
[2020-01-22] MEDS: MORPHINE SULFATE INJ 2 MG/ML DISP.SYRIN IV PRN (20:16)
[2020-01-22 20:30] VITALS: BP 138/77
[2020-01-22] MEDS: VANCOMYCIN 1 GM in IV D5W 250 ML IV SCH (20:41)
[2020-01-23] VITALS: BP 109/82
[2020-01-23 04:00] VITALS: BP 98/51
[2020-01-23] MEDS: IV D5/0.45 NACL 1,000 ML IV PRN (06:00)
--- NOTE | 2020-01-23 07:01 | NUR ---
RN CLOSING NOTES PATIENT AWAKE IN BED. A/OX1-2. NO SIGNS OF DISTRESS OR DISCOMFORT. BREATHING EVEN AND UNLABORED. ON 3LPM O2 VIA NC. ON TELE MONITOR WITH ST 102 NOTED. HAS ERIKA PICC WITH D5 1/2 NS INFUSING, PATENT AND INTACT. HAS F/C INTACT DRAINING CLOUDY YELLOW FLUID. ALL NEEDS MET. NO SIGNIFICANT CHANGES THROUGH THE NIGHT. PATIENT KEPT CLEAN DRY AND COMFORTABLE. REPOSITIONED Q2H. BED IN LOW LOCKED POSITION WITH SIDE RAILS X2. CALL LIGHT WITHIN REACH. WILL ENDORSE TO AM SHIFT FOR YARA.
--- NOTE | 2020-01-23 07:13 | NUR ---
INSURANCE CLAIMS REPRESENTATIVE OPENING NOTES RECEIVED BEDSIDE REPORT. PT AWAKE IN BED, ALERT AND ORIENTED X 1, URDU SPEAKING. ON 02 VIA NC 3L/MIN, SATURATING WELL, RESPIRATIONS EVEN AND UNLABORED, NO SIGNS OF RESPIRATORY DISTRESS NOTED. ON TELE MONITOR SINUS RHYTHM. AVALOS CATHETER INTACT, PATENT, DRAINING CLOUDY YELLOW URINE. LEFT UPPER ARM PICC LINE INTACT, PATENT, SECURED WITH CLEAN DRESSING, D5 1/2 NS INFUSING AT 75CC/HR. BED IN LOW POSITION, LOCKED, CALL LIGHT WITHIN REACH.
[2020-01-23] MEDS: MEROPENEM 1 G in IV NS 0.9% 100 ML IV SCH ×2 (07:19→19:43)
[2020-01-23 07:22] LABS: CALCIUM, SERUM 8.9 mg/dL (8.5-10.1); CREATININE 1.1 mg/dL (0.6-1.3); POTASSIUM 3.8 mmol/L (3.5-5.1)
[2020-01-23 08:00] VITALS: BP 130/72
[2020-01-23] MEDS: ACETYLCYSTEINE 10% SOLN 400 MG/4 ML VIAL NEB SCH ×3 (08:00→23:08)
[2020-01-23] MEDS: ENSURE ENLIVE CHOC 237 ML CAN PO SCH ×3 (08:00→16:26)
[2020-01-23] MEDS: MULTIVIT W/MINERALS 1 TAB TABLET PO SCH (08:43)
[2020-01-23] MEDS: ASCORBIC ACID 500 MG TABLET PO SCH (08:43)
[2020-01-23] MEDS: METOPROLOL TARTRATE 50 MG TABLET PO SCH ×3 (08:43→22:18)
[2020-01-23] MEDS: LACTOBACILLUS RHAMNOSUS GG 1 EACH CAP.SPRINK PO SCH (08:43)
[2020-01-23] MEDS: DULOXETINE HCL 30 MG CAPSULE.DR PO SCH (08:43)
[2020-01-23] MEDS: PROSTAT (PYXIS) 30 ML UDC PO SCH (08:45)
[2020-01-23] MEDS: risperiDONE 0.25 MG TABLET PO SCH ×4 (08:49→21:13)
[2020-01-23] MEDS: NEOMY SULF/BACITRAC ZN/POLY 15 GM TUBE TP SCH (08:58)
[2020-01-23] MEDS: CLOTRIMAZOLE/BETAMETASONE DIPROPIONATE 15 GM TUBE TP SCH ×2 (08:58→16:26)
[2020-01-23] MEDS: GENTAMICIN 80 MG in IV D5W 100 ML IV SCH (11:39)
[2020-01-23 12:00] VITALS: BP 130/72
[2020-01-23] MEDS: SOD FERRIC GLUC 125 MG in IV NS 0.9% 100 ML IV SCH (14:31)
[2020-01-23 16:00] VITALS: BP 99/59
--- NOTE | 2020-01-23 16:40 | NUR ---
medication family refused Risperdal states the medication makes their mother lethargic affects of medication discussed with family. family resolute in revocation of medication administration
--- NOTE | 2020-01-23 18:16 | NUR ---
CLOSING PATIENT LETHARGIC IN BED. A/OX1-2. NO SIGNS OF DISTRESS OR DISCOMFORT. BREATHING EVEN AND UNLABORED. ON 3LPM O2 VIA NC. PT STATUS MED/SURG. HAS ERIKA PICC WITH D5 1/2 NS INFUSING, PATENT AND INTACT. HAS F/C INTACT DRAINING CLOUDY YELLOW FLUID. ALL NEEDS MET. NO SIGNIFICANT CHANGES THROUGH THE NIGHT. PATIENT KEPT CLEAN DRY AND COMFORTABLE. REPOSITIONED Q2H. BED IN LOW LOCKED POSITION WITH SIDE RAILS X2. CALL LIGHT WITHIN REACH. WILL ENDORSE TO AM SHIFT FOR CONTINUITY OF CARE.
[2020-01-23] MEDS: ENOXAPARIN SODIUM 60 MG/0.6 ML DISP.SYRIN SQ SCH (19:44)
[2020-01-23] MEDS: VANCOMYCIN 1 GM in IV D5W 250 ML IV SCH (20:26)
--- NOTE | 2020-01-23 21:13 | NUR ---
DID NOT ADMINISTER RISPERDAL PER FAMILY'S REQUEST
[2020-01-24] VITALS: BP 116/81
[2020-01-24] MEDS: SCOPOLAMINE HBR 1 EA PATCH.TD72 TD SCH (01:00)
--- NOTE | 2020-01-24 01:36 | NUR ---
DID NOT ADMINISTER TRANSDERM PATCH, DRUG NOT AVAILABLE.
[2020-01-24] MEDS: IV D5/0.45 NACL 1,000 ML IV PRN ×2 (05:15→18:59)
[2020-01-24] MEDS: MEROPENEM 1 G in IV NS 0.9% 100 ML IV SCH ×2 (07:42→18:06)
[2020-01-24 08:00] VITALS: BP 97/65
[2020-01-24] MEDS: ENSURE ENLIVE CHOC 237 ML CAN PO SCH ×3 (08:00→18:13)
[2020-01-24] MEDS: ACETYLCYSTEINE 10% SOLN 400 MG/4 ML VIAL NEB SCH ×3 (08:40→23:22)
[2020-01-24 08:47] LABS: BASOPHILS # (AUTO) 0.1 /CMM (0.0-0.2); BASOPHILS % (AUTO) 0.9 % (0.0-2.0); EOSINOPHILS % (AUTO) 1.4 % (0.0-6.0); HEMATOCRIT 31 % (33-45); HEMOGLOBIN 9.5 g/dL (11.5-14.8); LYMPHOCYTES # (AUTO) 1.8 /CMM (0.8-4.8); LYMPHOCYTES % (AUTO) 10.8 % (20.0-44.0); MEAN CORPUSCULAR HGB CONC 31 g/dl (31.0-36.0); MEAN CORPUSCULAR VOLUME 87 fL (82-100); MONOCYTES # (AUTO) 0.8 /CMM (0.1-1.30); MONOCYTES % (AUTO) 4.9 % (2.0-12.0); NEUTROPHILS # (AUTO) 13.6 /CMM (1.8-8.9); PLATELET COUNT (AUTO) 441 /CMM (150-450); RED BLOOD CELL COUNT(AUTO) 3.51 MIL/uL (4.0-5.2); WHITE BLOOD COUNT (AUTO) 16.6 K/uL (4.3-11.0)
[2020-01-24 08:49] LABS: CALCIUM, SERUM 8.6 mg/dL (8.5-10.1); CREATININE 1.1 mg/dL (0.6-1.3); POTASSIUM 3.4 mmol/L (3.5-5.1)
[2020-01-24] MEDS: PROSTAT (PYXIS) 30 ML UDC PO SCH (09:00)
[2020-01-24] MEDS: MULTIVIT W/MINERALS 1 TAB TABLET PO SCH (09:00)
[2020-01-24] MEDS: risperiDONE 0.25 MG TABLET PO SCH ×3 (09:00→21:28)
[2020-01-24] MEDS: METOPROLOL TARTRATE 50 MG TABLET PO SCH ×2 (09:00→21:27)
[2020-01-24] MEDS: DULOXETINE HCL 30 MG CAPSULE.DR PO SCH (09:00)
[2020-01-24] MEDS: ASCORBIC ACID 500 MG TABLET PO SCH (09:00)
[2020-01-24 09:09] LABS: MAGNESIUM 1.9 mg/dL (1.8-2.4); PHOSPHORUS 3.3 mg/dL (2.5-4.9)
[2020-01-24] MEDS ORDERED: POTASSIUM CHLORIDE 20 MEQ TAB.PRT.SR PO SCH (11:00)
[2020-01-24] MEDS: LACTOBACILLUS RHAMNOSUS GG 1 EACH CAP.SPRINK PO SCH (11:40)
[2020-01-24] MEDS: NEOMY SULF/BACITRAC ZN/POLY 15 GM TUBE TP SCH (11:42)
[2020-01-24] MEDS: CLOTRIMAZOLE/BETAMETASONE DIPROPIONATE 15 GM TUBE TP SCH ×2 (11:42→18:06)
[2020-01-24] MEDS: GENTAMICIN 80 MG in IV D5W 100 ML IV SCH (12:47)
[2020-01-24 13:05] LABS: APPEARANCE,URINE CLOUDY (CLEAR); BILIRUBIN,URINE NEGATIVE (NEGATIVE); BLOOD, URINE MODERATE Ery/uL (NEGATIVE); KETONES,URINE TRACE (NEGATIVE); LEUKOCYTE ESTERASE ,URINE MODERATE (NEGATIVE); NITRITE, URINE NEGATIVE (NEGATIVE); PROTEIN,URINE 30 mg/dl (NEGATIVE); UGLUCOSE NEGATIVE (NEGATIVE); UROBILINOGEN,URINE 0.2 EU/dL (0.2)
[2020-01-24 13:06] LABS: COLOR,URINE STRAW (YELLOW)
[2020-01-24] MEDS ORDERED: GLUCERNA 1.2 1,000 ML BOTTLE NG PRN (13:30)
[2020-01-24 14:44] LABS: BACTERIA,URINE 3+ /HPF (None Seen); SQUAMOUS EPITHELIAL CELL,UR 0-2 /HPF (None Seen); WBC,URINE 51-80 /HPF (0-3); YEAST,URINE Few /HPF (None Seen)
--- NOTE | 2020-01-24 15:00 | NUR ---
RN NOTE INSERTED NGT. PATIENT DID NOT TOLERATE PROCEDURE. FAMILY ASKED TO DISCONTINUE NGT
[2020-01-24 16:00] VITALS: BP 103/68
[2020-01-24 16:23] LABS: ABG BASE EXCESS -2.8 mmol/L; ABG OXYGEN SATURATION 96.4 % (92.0-98.5); ABG PH 7.494 (7.350-7.450); ABG PO2 90.2 mmHg (75.0-100.0); AaDO2 78.8 mmHg; COHb 0.3 % (0.5-1.5); MetHb 0.6 % (0.0-1.5); O2Hb 95.5 % (94.0-97.0); SITE, ABG Right Radial; VENT MODE, BG 2L NC
[2020-01-24] MEDS: ENOXAPARIN SODIUM 60 MG/0.6 ML DISP.SYRIN SQ SCH (19:00)
--- NOTE | 2020-01-24 19:05 | NUR ---
MS RN NOTE RECEIVED PT IN STABLE CONDITION, NOTED IN BED. NO SIGNS OF SOB OR DISTRESS, NO INDICATIONS OF PAIN OR N/V. ERIKA PICC IN PLACE WITH IVF INFUSING. ALL CURRENT NEEDS ATTENDED TO. BED LOW, LOCKED, UPPER RAILS UP, AND CALL LIGHT WITHIN REACH. WILL CONT. TO REPOSITION AND MONITOR.
[2020-01-24] MEDS: VANCOMYCIN 1 GM in IV D5W 250 ML IV SCH (20:16)
--- NOTE | 2020-01-24 21:28 | NUR ---
MS RN NOTE PM DOSE OF RISPERDAL HELD, PT UNABLE TO SWALLOW. HELD PER ASPIRATION PRECAUTIONS.
[2020-01-25] MEDS: ERGOCALCIFEROL (VITAMIN D 2) 50,000 UNIT CAPSULE PO SCH (00:30)
--- NOTE | 2020-01-25 00:30 | NUR ---
MS RN NOTE 0100 DOSE OF ERGOCALCIFEROL NOT ADMIN FOR ASPIRATION PRECAUTIONS.
[2020-01-25 04:00] VITALS: BP 122/61
[2020-01-25] MEDS: MEROPENEM 1 G in IV NS 0.9% 100 ML IV SCH ×2 (06:02→18:39)
--- NOTE | 2020-01-25 06:35 | NUR ---
MS RN NOTE PT REMAINS IN STABLE CONDITION, NOTED IN BED. NO SIGNS OF SOB OR DISTRESS, NO INDICATIONS OF PAIN OR N/V. ERIKA PICC IN PLACE WITH IVF INFUSING. ALL CURRENT NEEDS ATTENDED TO. BED LOW, LOCKED, UPPER RAILS UP, AND CALL LIGHT WITHIN REACH. WILL CONT. TO REPOSITION AND MONITOR AND ENDORSE TO NEXT SHIFT FOR YARA.
[2020-01-25] MEDS: ACETYLCYSTEINE 10% SOLN 400 MG/4 ML VIAL NEB SCH ×3 (07:57→23:22)
[2020-01-25 08:00] VITALS: BP 105/56
--- NOTE | 2020-01-25 08:06 | NUR ---
RN OPENING NOTES RECCEIVED PATIENT ON THE BED.PATIENT REMAINS IN STABLE CONDITION. NO SIGNS OF SOB OR DISTRESS, NO INDICATIONS OF PAIN OR N/V. ERIKA PICC IN PLACE WITH IVF INFUSING. BED LOW, LOCKED, UPPER RAILS UP, AND CALL LIGHT WITHIN REACH. WILL CONTINUE TO MONITOR.
[2020-01-25 08:14] LABS: BASOPHILS % (AUTO) 0.4 % (0.0-2.0); EOSINOPHILS % (AUTO) 2.4 % (0.0-6.0); HEMATOCRIT 27 % (33-45); HEMOGLOBIN 8.4 g/dL (11.5-14.8); LYMPHOCYTES # (AUTO) 1.3 /CMM (0.8-4.8); LYMPHOCYTES % (AUTO) 11.6 % (20.0-44.0); MEAN CORPUSCULAR HGB CONC 31 g/dl (31.0-36.0); MEAN CORPUSCULAR VOLUME 88 fL (82-100); MONOCYTES # (AUTO) 0.6 /CMM (0.1-1.30); MONOCYTES % (AUTO) 5.8 % (2.0-12.0); NEUTROPHILS # (AUTO) 8.8 /CMM (1.8-8.9); NEUTROPHILS % (AUTO) 79.8 % (43.0-81.0); PLATELET COUNT (AUTO) 415 /CMM (150-450); RED BLOOD CELL COUNT(AUTO) 3.06 MIL/uL (4.0-5.2); WHITE BLOOD COUNT (AUTO) 11.1 K/uL (4.3-11.0)
[2020-01-25 08:28] LABS: CALCIUM, SERUM 8.2 mg/dL (8.5-10.1); CREATININE 1.2 mg/dL (0.6-1.3); MAGNESIUM 1.8 mg/dL (1.8-2.4); PHOSPHORUS 2.9 mg/dL (2.5-4.9); POTASSIUM 3.1 mmol/L (3.5-5.1)
[2020-01-25] MEDS: PROSTAT (PYXIS) 30 ML UDC PO SCH (09:00)
[2020-01-25] MEDS: ASCORBIC ACID 500 MG TABLET PO SCH (09:00)
[2020-01-25] MEDS: MULTIVIT W/MINERALS 1 TAB TABLET PO SCH (09:00)
[2020-01-25] MEDS: DULOXETINE HCL 30 MG CAPSULE.DR PO SCH (09:00)
[2020-01-25] MEDS: NEOMY SULF/BACITRAC ZN/POLY 15 GM TUBE TP SCH (09:00)
[2020-01-25] MEDS: risperiDONE 0.25 MG TABLET PO SCH ×3 (09:00→21:21)
[2020-01-25] MEDS: METOPROLOL TARTRATE 50 MG TABLET PO SCH ×2 (09:00→21:20)
[2020-01-25] MEDS: CLOTRIMAZOLE/BETAMETASONE DIPROPIONATE 15 GM TUBE TP SCH ×2 (09:00→17:48)
[2020-01-25] MEDS: LACTOBACILLUS RHAMNOSUS GG 1 EACH CAP.SPRINK PO SCH (09:00)
[2020-01-25] MEDS ORDERED: POTASSIUM CHLORIDE 20 MEQ TAB.PRT.SR PO SCH (10:30)
[2020-01-25] MEDS: POTASSIUM CL. PREMIX PERIPHER. 50 ML IV SCH ×4 (11:20→15:55)
--- NOTE | 2020-01-25 11:40 | NUR ---
MS/RN NOTES NO NGT PLACEMENT PER HAM THE DAUGHTER REQUESTED MD, BIOTECHNOLOGIST WAS AWARE.
[2020-01-25 12:00] VITALS: BP 132/66
--- NOTE | 2020-01-25 12:00 | NUR ---
MS/RN NOTES NO MORPHINE, RISPERDAL ADMINISTRATION PER HAM THE DAUGHTER REQUEST
[2020-01-25] MEDS: D5W IV SCH (12:25)
[2020-01-25] MEDS: GENTAMICIN IV SCH (12:25)
[2020-01-25] MEDS: ENSURE ENLIVE 237 ML LIQUID (VANILLA) PO SCH ×2 (13:01→17:48)
[2020-01-25 16:00] VITALS: BP 122/67
--- NOTE | 2020-01-25 18:00 | NUR ---
MS/RN NOTES PATIENT CHANGED DIAPER 4X FULLY SOAKED 3X STOOL.
--- NOTE | 2020-01-25 19:15 | NUR ---
RN babitasuryuli opening notes Received Pt from morning nurse. Pt is resting in bed comfortably. Pt is alert and orientedX1. Pt's daughter Bethany at the bed side. Respiration in normal. No SOB. No S/S of distress noted. ERIKA Picc line is clean, intact, patent and infuising well merrem abx. Turned and repositioned Q 2 HR. Kept Pt clean, dry and comfortable. Will changed the travis bag per Pt's daughter requested. Charge nurse is aware and informed. Safety precautions is maintained. Bed at low positioned, brakes locked, side rails upX3, HOB elevated, call light is within reach. Will continue to monitor.
--- NOTE | 2020-01-25 19:32 | NUR ---
MS/RN CLOSING NOTES PATIENT IS ALERT AND ORIENTED X 1. DENIES PAIN AT THIS TIME. NO APPARENT DISTRESS NOTED. IV FLUID OF D5 1/2 NS AT 75 ML/HOUR INFUSING WELL. SEEN AND EXAMINED BY MD WITH ORDERS MADE AND CARRIED OUT. ALL DUE MEDS WAS GIVEN. CHECKED AND TURN PATIENT EVERY 2 HOURS. SAFETY PRECAUTION IS INPLACED. BED IN LOWEST POSITION AND LOCKED. SIDE RAILS UP X2. WILL ENDORSED TO ORACLE BUSINESS ANALYST FOR CONTINUITY OF CARE.
[2020-01-25] MEDS: ALBUTEROL FS 2.5 MG/3 ML VIAL.NEB NEB PRN (19:40)
[2020-01-25] MEDS: IPRATROPIUM NEB FS 0.5 MG/2.5 ML AMPUL.NEB NEB PRN (19:40)
[2020-01-25 20:00] VITALS: BP 147/82
[2020-01-25] MEDS: ENOXAPARIN SODIUM 60 MG/0.6 ML DISP.SYRIN SQ SCH (20:12)
[2020-01-25] MEDS: VANCOMYCIN 1 GM in IV D5W 250 ML IV SCH (20:13)
[2020-01-25] MEDS: IV D5/0.45 NACL 1,000 ML IV PRN (20:28)
--- NOTE | 2020-01-25 20:45 | NUR ---
RN medsuryuli notes Changed travis cath. Pt tolerated activity well. Emptied the first travis bag 30 ml of cloudy yellow urine. Skin care provided. Applied mepilex and zguard in the sacrum area. Turned and repositioned Q 2hr. Pt tolerated activity well. Will continue to monitor.
--- NOTE | 2020-01-25 21:21 | NUR ---
RN jenniffer notes Pt's daughter Bethany refused to have risperdal for Pt. Made aware risks and benefits. Pt's daughter stated " She had in the morning and do not give at night. Please let the nurses call me if they have to give risperdal tomorrow." Will continue to monitor.
[2020-01-25 22:00] VITALS: BP 132/75
[2020-01-26 04:00] VITALS: BP 102/60
[2020-01-26] MEDS: MEROPENEM 1 G in IV NS 0.9% 100 ML IV SCH ×2 (06:05→19:47)
[2020-01-26 06:52] LABS: BASOPHILS % (AUTO) 0.4 % (0.0-2.0); EOSINOPHILS % (AUTO) 2.7 % (0.0-6.0); HEMATOCRIT 29 % (33-45); LYMPHOCYTES # (AUTO) 1.6 /CMM (0.8-4.8); LYMPHOCYTES % (AUTO) 12.7 % (20.0-44.0); MEAN CORPUSCULAR HGB CONC 31 g/dl (31.0-36.0); MEAN CORPUSCULAR VOLUME 88 fL (82-100); MONOCYTES # (AUTO) 0.8 /CMM (0.1-1.30); MONOCYTES % (AUTO) 6.1 % (2.0-12.0); NEUTROPHILS # (AUTO) 9.7 /CMM (1.8-8.9); NEUTROPHILS % (AUTO) 78.1 % (43.0-81.0); PLATELET COUNT (AUTO) 413 /CMM (150-450); RED BLOOD CELL COUNT(AUTO) 3.27 MIL/uL (4.0-5.2); WHITE BLOOD COUNT (AUTO) 12.5 K/uL (4.3-11.0)
--- NOTE | 2020-01-26 06:55 | NUR ---
RN medsurg closing notes Pt is sleeping in bed comfortably. Pt is alert and orientedX1. Respiration is normal in 3 L NC. No SOB. No S/S of distress noted. ERIKA Picc line is clean, intact, patent and SL. VS is stable. Routine meds were given as ordered. Turned and repositioned Q 2 HR. Kept Pt clean, dry and comfortable. Skin care provided. All needs met and attended. Safety precautions is maintained. Bed at low position, brakes locked, side rails up, HOB elevated, and call light is within reach. Will endorse to morning nurse for YARA.
[2020-01-26 07:14] LABS: CALCIUM, SERUM 8.8 mg/dL (8.5-10.1); CREATININE 0.8 mg/dL (0.6-1.3); MAGNESIUM 1.8 mg/dL (1.8-2.4); PHOSPHORUS 2.4 mg/dL (2.5-4.9)
[2020-01-26] MEDS: ACETYLCYSTEINE 10% SOLN 400 MG/4 ML VIAL NEB SCH ×2 (07:37→15:56)
[2020-01-26 08:00] VITALS: BP 97/57
--- NOTE | 2020-01-26 08:19 | NUR ---
rn inital notes received pt resting in bed. travis draining thru gravity. no signs of any discomofrt needed. made comofrtable in bed and safety ensured. remains on o2 inh with o2 sat wnl. will monitor
[2020-01-26] MEDS: ENSURE ENLIVE 237 ML LIQUID (VANILLA) PO SCH ×3 (08:46→17:44)
[2020-01-26] MEDS: DULOXETINE HCL 30 MG CAPSULE.DR PO SCH (08:53)
[2020-01-26] MEDS: ASCORBIC ACID 500 MG TABLET PO SCH (08:53)
[2020-01-26] MEDS: METOPROLOL TARTRATE 50 MG TABLET PO SCH ×2 (08:55→22:17)
[2020-01-26] MEDS: MULTIVIT W/MINERALS 1 TAB TABLET PO SCH (08:55)
[2020-01-26] MEDS: LACTOBACILLUS RHAMNOSUS GG 1 EACH CAP.SPRINK PO SCH (08:55)
[2020-01-26] MEDS: risperiDONE 0.25 MG TABLET PO SCH ×3 (09:00→22:18)
[2020-01-26] MEDS: NEOMY SULF/BACITRAC ZN/POLY 15 GM TUBE TP SCH (09:01)
[2020-01-26] MEDS: CLOTRIMAZOLE/BETAMETASONE DIPROPIONATE 15 GM TUBE TP SCH ×2 (09:01→17:44)
[2020-01-26] MEDS ORDERED: K PHOS NEUTRAL 250 MG TABLET PO ONE (14:00)
[2020-01-26] MEDS: GENTAMICIN IV SCH (14:17)
[2020-01-26] MEDS: D5W IV SCH (14:17)
[2020-01-26 16:00] VITALS: BP 115/61
[2020-01-26] MEDS: FLUCONAZOLE IN NS 100 MG in PREMIX 1 EA IV SCH ×2 (16:36)
[2020-01-26] MEDS: HYDROCORTISONE 1% CREAM 28.35 GM TUBE TP SCH (17:46)
--- NOTE | 2020-01-26 19:38 | NUR ---
rn notes endorsed pt to next shift rn in stable condition. pt awake with hob elevated. positioned for comfort. turned and repositioned during this shift. kept clean and dry at all times; good skin care provided. all needs met during this shift
[2020-01-26] MEDS: ENOXAPARIN SODIUM 60 MG/0.6 ML DISP.SYRIN SQ SCH (19:49)
[2020-01-26 20:00] VITALS: BP 117/51
[2020-01-26] MEDS: VANCOMYCIN 1 GM in IV D5W 250 ML IV SCH (20:39)
--- NOTE | 2020-01-26 20:54 | NUR ---
FANTA/RN AT INITIAL ROUNDING AT 1930, RECEIVED PATIENT ON BED AWAKE, SLEEPY, NOT VERBALLY RESPONSIVE AT THIS TIME, APPEAR COMFORTABLE, NO SIGNS OF DISTRESS NOTED, BED ALARM ON, DALL LIGHT IN REACH. WILL MONITOR.
[2020-01-27] MEDS: ACETYLCYSTEINE 10% SOLN 400 MG/4 ML VIAL NEB SCH ×3 (00:25→14:49)
[2020-01-27] MEDS: SCOPOLAMINE HBR 1 EA PATCH.TD72 TD SCH (01:16)
[2020-01-27 04:00] VITALS: BP 136/67
--- NOTE | 2020-01-27 06:15 | NUR ---
FANTA/RN PATIENT STILL SLEEPING AT THIS TIME, APPEAR COMFORTABLE, NO SIGNS OF DISTRESS NOTED, ALL NEEDS ATTENDED AT THIS TIME, WILL CONTINUE TO MONITOR.
[2020-01-27] MEDS: MEROPENEM 1 G in IV NS 0.9% 100 ML IV SCH (06:29)
[2020-01-27 07:05] LABS: BASOPHILS # (AUTO) 0.1 /CMM (0.0-0.2); BASOPHILS % (AUTO) 0.8 % (0.0-2.0); EOSINOPHILS % (AUTO) 3.2 % (0.0-6.0); HEMATOCRIT 27 % (33-45); HEMOGLOBIN 8.7 g/dL (11.5-14.8); LYMPHOCYTES # (AUTO) 1.6 /CMM (0.8-4.8); LYMPHOCYTES % (AUTO) 15.3 % (20.0-44.0); MEAN CORPUSCULAR HGB CONC 33 g/dl (31.0-36.0); MEAN CORPUSCULAR VOLUME 88 fL (82-100); MONOCYTES # (AUTO) 0.6 /CMM (0.1-1.30); MONOCYTES % (AUTO) 6.1 % (2.0-12.0); NEUTROPHILS # (AUTO) 7.8 /CMM (1.8-8.9); NEUTROPHILS % (AUTO) 74.6 % (43.0-81.0); PLATELET COUNT (AUTO) 354 /CMM (150-450); RED BLOOD CELL COUNT(AUTO) 3.01 MIL/uL (4.0-5.2); WHITE BLOOD COUNT (AUTO) 10.5 K/uL (4.3-11.0)
[2020-01-27] MEDS: ALBUTEROL FS 2.5 MG/3 ML VIAL.NEB NEB PRN ×2 (07:43→14:49)
[2020-01-27] MEDS: IPRATROPIUM NEB FS 0.5 MG/2.5 ML AMPUL.NEB NEB PRN (07:44)
--- NOTE | 2020-01-27 07:45 | NUR ---
RN OPENING NOTES RECEIVED PATIENT IN BED,ASLEEP, RESTING COMFORTABLY. IN APPARENT DISTRESS NOTED. ON OXYGEN VIA NASAL CANNULA @2L SATURATING WELL. NO SOB NOTED. IV ACCESS ON ERIKA PICC LINE INTACT, PATENT AND FLUSHED WELL. AVALOS CATHETER DRAINING YELLOW COLOR URINE VIA GRAVITY WITH 150 ML ON THE BAG. SAFETY PRECAUTIONS IN PLACED, BED IN LOWEST POSITION AND LOCKED. CALL LIGHT WITHIN REACH. WILL CONTINUE TO MONITOR.
[2020-01-27 07:47] LABS: BILIRUBIN,TOTAL 0.3 mg/dL (0.2-1.0); CALCIUM, SERUM 8.5 mg/dL (8.5-10.1); CREATININE 0.9 mg/dL (0.6-1.3); MAGNESIUM 1.7 mg/dL (1.8-2.4); PHOSPHORUS 3.2 mg/dL (2.5-4.9); POTASSIUM 3.7 mmol/L (3.5-5.1); TOTAL PROTEIN, SERUM 5.2 g/dL (6.4-8.2)
[2020-01-27 07:48] LABS: ALBUMIN 1.3 g/dL (3.4-5.0)
--- NOTE | 2020-01-27 07:55 | NUR ---
RN NOTES RECEIVED A CALL FROM LAB REGARDING CRITICAL RESULT OF ALBUMIN 1.3. RADIOLOGIC TECHNOLOGY PROGRAM DIRECTOR YULIANA IQBAL MADE AWARE. NO NEW ORDER.
[2020-01-27 08:00] VITALS: BP 112/55
[2020-01-27] MEDS: DULOXETINE HCL 30 MG CAPSULE.DR PO SCH (09:00)
[2020-01-27] MEDS: LACTOBACILLUS RHAMNOSUS GG 1 EACH CAP.SPRINK PO SCH (09:00)
[2020-01-27] MEDS ORDERED: PROSOURCE / PROSTAT (PYXIS) 30 ML UDC PO SCH (09:00)
[2020-01-27] MEDS: ASCORBIC ACID 500 MG TABLET PO SCH (09:00)
[2020-01-27] MEDS: risperiDONE 0.25 MG TABLET PO SCH ×2 (09:00→17:00)
[2020-01-27] MEDS: MULTIVIT W/MINERALS 1 TAB TABLET PO SCH (09:00)
[2020-01-27] MEDS: ENSURE ENLIVE 237 ML LIQUID (VANILLA) PO SCH ×3 (09:00→17:00)
[2020-01-27] MEDS: METOPROLOL TARTRATE 50 MG TABLET PO SCH (09:00)
[2020-01-27] MEDS: CLOTRIMAZOLE/BETAMETASONE DIPROPIONATE 15 GM TUBE TP SCH ×2 (09:27→17:00)
[2020-01-27] MEDS: HYDROCORTISONE 1% CREAM 28.35 GM TUBE TP SCH ×2 (09:38→17:00)
[2020-01-27] MEDS: NEOMY SULF/BACITRAC ZN/POLY 15 GM TUBE TP SCH (09:38)
[2020-01-27] MEDS: Magnesium 1GM/D5W 100ML PREMIX 100 ML IV SCH ×2 (09:43→10:53)
--- NOTE | 2020-01-27 10:00 | NUR ---
RN NOTES NOTED PATIENT IS SO SLEEPY, TRIED TO WAKE HER UP FOR MORNING MEDS AND BREAKFAST BUT DOESN'T OPENED HER MOUTH. YULIANA MADE AWARE , OK TO HOLD MEDICINES. Addendum: 01/27/20 at 1200 by KRISTEN POSADA RN HELD CULTURELLE, CYMBALTA, ENSURE, LOPRESSOR, PRO-STAT, RISPERDAL, THERAGRAM, VIT C.
[2020-01-27] MEDS ORDERED: MAGN400O6 PO (13:35)
[2020-01-27] MEDS ORDERED: CLOT15CR5 TP (13:35)
[2020-01-27] MEDS ORDERED: ACET1OOV6 NEB (13:35)
[2020-01-27] MEDS ORDERED: MAG30ORA PO (13:35)
[2020-01-27] MEDS ORDERED: ALBUT2 NEB (13:35)
[2020-01-27] MEDS ORDERED: RXENO XX (13:35)
[2020-01-27] MEDS ORDERED: HYDR28.32 TP (13:35)
[2020-01-27] MEDS ORDERED: IPRA0.2S9 NEB (13:35)
[2020-01-27] MEDS ORDERED: Metoprolol Tartrate Inj IVP (13:35)
[2020-01-27] MEDS ORDERED: LACT-246 PO (13:35)
[2020-01-27] MEDS ORDERED: RXVAN XX (13:35)
[2020-01-27] MEDS ORDERED: MERO500V21 IV (13:35)
[2020-01-27] MEDS ORDERED: NEOM15OI3 TP (13:35)
[2020-01-27] MEDS ORDERED: Prosource PO (13:35)
[2020-01-27] MEDS ORDERED: FLUC100P4 IV (13:35)
[2020-01-27 16:00] VITALS: BP 109/57
[2020-01-27] MEDS: FLUCONAZOLE IN NS 100 MG in PREMIX 1 EA IV SCH ×2 (16:11)
== END 2020-01-27 18:06 | DRG 871 ==
LOC: ER 22:50 → TELE-TD 01-15 01:16 → ICU 01-15 13:02 → TELE-TD 01-19 05:35 → TELE1 01-20 08:29 → MEDSG1 01-23 09:40
PROVIDERS: ADMIT Internal Medicine; ATTEND Registered Nurse
PROC: 5A09557 Assistance with Respiratory Ventilation, Greater than 96 Consecutive Hours, Continuous Positive Airway Pressure (ICD-10-PCS; principal; 2020-01-15)
PROC: 02HV33Z Insertion of Infusion Device into Superior Vena Cava, Percutaneous Approach (ICD-10-PCS; 2020-01-15)
PROC: B548ZZA Ultrasonography of Superior Vena Cava, Guidance (ICD-10-PCS; 2020-01-15)
PROC: 30233N1 Transfusion of Nonautologous Red Blood Cells into Peripheral Vein, Percutaneous Approach (ICD-10-PCS; 2020-01-20)
DX: A41.9 Sepsis, unspecified organism (principal); E43 Unspecified severe protein-calorie malnutrition; J96.01 Acute respiratory failure with hypoxia; J18.9 Pneumonia, unspecified organism; N17.0 Acute kidney failure with tubular necrosis; G93.41 Metabolic encephalopathy; N39.0 Urinary tract infection, site not specified; I82.412 Acute embolism and thrombosis of left femoral vein; D68.59 Other primary thrombophilia; J98.11 Atelectasis; E87.2 Acidosis; E87.0 Hyperosmolality and hypernatremia; M84.422A Pathological fracture, left humerus, initial encounter for fracture; Z16.24 Resistance to multiple antibiotics; G30.9 Alzheimer's disease, unspecified; E66.01 Morbid (severe) obesity due to excess calories; Z66 Do not resuscitate; Z91.81 History of falling; E78.00 Pure hypercholesterolemia, unspecified; I25.10 Atherosclerotic heart disease of native coronary artery without angina pectoris; Z95.5 Presence of coronary angioplasty implant and graft; Z96.649 Presence of unspecified artificial hip joint; Z90.710 Acquired absence of both cervix and uterus; Z79.899 Other long term (current) drug therapy; Z79.83 Long term (current) use of bisphosphonates; Z79.01 Long term (current) use of anticoagulants; Y95 Nosocomial condition; L30.4 Erythema intertrigo; K44.9 Diaphragmatic hernia without obstruction or gangrene; F02.80 Dementia in other diseases classified elsewhere, unspecified severity, without behavioral disturbance, psychotic disturbance, mood disturbance, and anxiety; F41.9 Anxiety disorder, unspecified; F32.9 Major depressive disorder, single episode, unspecified; D47.3 Essential (hemorrhagic) thrombocythemia; Z74.09 Other reduced mobility; D63.8 Anemia in other chronic diseases classified elsewhere; M62.462 Contracture of muscle, left lower leg; M62.461 Contracture of muscle, right lower leg; F09 Unspecified mental disorder due to known physiological condition; E78.5 Hyperlipidemia, unspecified; E86.1 Hypovolemia; E87.6 Hypokalemia; I10 Essential (primary) hypertension; B96.5 Pseudomonas (aeruginosa) (mallei) (pseudomallei) as the cause of diseases classified elsewhere; I48.91 Unspecified atrial fibrillation; J40 Bronchitis, not specified as acute or chronic; R13.10 Dysphagia, unspecified; R21 Rash and other nonspecific skin eruption; S20.221A Contusion of right back wall of thorax, initial encounter; S00.31XA Abrasion of nose, initial encounter; X58.XXXA Exposure to other specified factors, initial encounter; Y92.89 Other specified places as the place of occurrence of the external cause
CPT/HCPCS: 31720; 36415; 36569; 36600; 71045-TC; 80048-TC; 80053-TC; 80076-TC; 80170-TC; 80202-TC; 81000-TC; 82272-TC; 82728-TC; 82803-TC; 83540-TC; 83605-TC; 83735-TC; 83880; 84100-TC; 84484-TC; 85025-TC; 85730-TC; 86850-TC; 86921-TC; 87040-TC; 87081-TC; 87086-TC; 87186-TC; 92526; 92611-TC; 93970-TC; 94760-TC; 94799-TC; A4216; A4624; C1751; G0378; J1450; J1580; J1630; J1644; J1650; J2060; J2185; J2270; J2543; J2916; J3370; J3475; J3480; J3490; J7030; J7050; J7060; J7070; J7120; P9016-BL